=== PATIENT | male | born 1965 | race African-American/Black ===

== ENCOUNTER 2023-11-03 20:35 | Emergency (ER) | payer OTHER ==
[2023-11-03] MEDS ORDERED: THIAMINE 200 MG/2 ML INJ ONE (21:07)
[2023-11-03] MEDS ORDERED: NA CHLORIDE 0.9% 1,000 ML ONE (21:08)
[2023-11-03 21:41] LABS: Absolute Monocytes 0.2 K/uL (0.1-1.3); Absolute Neutrophil 2.4 K/uL (1.8-8.0); Basophils % 1.3 % (0-1.3); Eosinophils % 0.4 % (0-4.4); Hematocrit 36.8 % (39.6-49.0); Hemoglobin 12.7 g/dL (13.6-17.9); Lymphocytes % 27.8 % (15.3-44.8); MCH 34.6 pg (27.0-35.0); MCHC 34.5 g/dL (32.0-36.0); MCV 100.3 fL (80-100); MPV 6.2 fL (7.6-11.3); Monocytes % 5.6 % (3.3-12.3); Neutrophils % 64.9 % (41.7-73.7); Nucleated Red Blood Cells % 0.1 % (0-0); PTT, Activated Partial Thromb 22.9 SECONDS (24.3-36.9); Platelets 244 thou/uL (152-406); RBC Red Blood Cell Count 3.67 M/uL (4.33-5.43); Red Cell Distribution Width 13.4 % (12.1-15.2)
[2023-11-03 21:50] LABS: ALT/SGPT 16 U/L (16-61); AST/SGOT 17 U/L (15-37); Albumin 3.5 g/dL (3.4-5.0); Alkaline Phosphatase 48 U/L (45-117); Anion Gap 11.8 mEq/L (5.0-15.0); BUN Blood Urea Nitrogen 14 mg/dL (7-18); Bicarbonate 27 mEq/L (21-32); Bilirubin Direct < 0.1 mg/dL (0-0.2); Bilirubin Indirect, Calculated ND mg/dL (0.2-0.8); Bilirubin Total 0.3 mg/dL (0.2-1.0); Globulin 3.5 g/dL (2.3-3.5); Glomerular Filtration Rate 56 ml/min (=/>90); Glucose Level 101 mg/dL (74-106); Potassium 2.8 mEq/L (3.5-5.1); Sodium Level 131 mEq/L (136-145)
--- NOTE | 2023-11-03 22:18 | RAD REPORT ---
EXAM DESCRIPTION: CT - Head Brain Wo Cont - 11/03/2023 10:11 pm CLINICAL HISTORY: MENTAL STATUS CHANGE Headache, drowsiness COMPARISON: CT HEAD SPINE CAP W CONTRAST dated 09/30/2013 TECHNIQUE: All CT scans are performed using dose optimization technique as appropriate and may inclu de automated exposure control or mA/KV adjustment according to patient size. FINDINGS: No intracranial hemorrhage, hydrocephalus or extra-axial fluid collection.Remote appearing small bilateral lacunar infarcts.No areas of brain edema or evidence of midline shift. The paranasal sinuses and mastoids are clear. The calvarium is intact. IMPRESSION: No acute intracranial abnormality.
[2023-11-03] MEDS ORDERED: KCL 20 MEQ/100 mL IVPB 100 ML IV ONE (22:34)
[2023-11-03] MEDS ORDERED: POTASSIUM 25 MEQ EFFERV TAB ONE ×2 (22:34→23:03)
--- NOTE | 2023-11-03 22:50 | ER ---
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 Was not jb4 responding to sternal rubs. Initial blood pressure was 88/62 after some IV fluids his pressure is now 137/89. He has an 18g in the RFA. BGL was 130. Pt reports consuming ETOH. Coronavirus screen: At this time, the client does not indicate any symptoms associated with coronavirus-19. Ebola Screen: No symptoms or risks identified at this time. Initial Sepsis Screen: Does the patient meet any 2 criteria? No. Patient's initial sepsis screen is negative. Does the patient have a suspected source of infection? No. Patient's initial sepsis screen is negative. Risk Assessment: Do you want to hurt yourself or someone else? Patient reports no desire to harm self or others. Onset of symptoms was November 03, 2023. Transition of care: patient was not received from another setting of care. 20:49 Method Of Arrival: EMS: [facility] jb4 20:49 Acuity: INDY 3 jb4 Triage Assessment: 20:53 General: Appears in no apparent distress. comfortable, Behavior is calm, cooperative, jb4 appropriate for age. Pain: Denies pain. EENT: No deficits noted. Neuro: Level of Consciousness is awake, alert, obeys commands, Oriented to person, place, time, situation. Cardiovascular: Patient's skin is warm and dry. Respiratory: Airway is patent Respiratory effort is even, unlabored, Respiratory pattern is regular, symmetrical. GI: No signs and/or symptoms were reported involving the gastrointestinal system. : No signs and/or symptoms were reported regarding the genitourinary system. Derm: Skin is intact, Skin is normal. Musculoskeletal: Circulation, motion, and sensation intact. Range of motion: intact in all extremities. Historical: - Allergies: 20:53 Iodine; jb4 20:53 PENICILLINS; jb4 - PMHx: 20:53 HTN; Schizophrenia; HIV positive; Diabetes mellitus; jb4 - Immunization history:: Adult Immunizations up to date. - Infectious Disease History:: Denies. - Social history:: Smoking status: Patient denies any tobacco usage or history of. Patient uses alcohol. - Family history:: not pertinent. Screenin:57 [facility] [place] ED Fall Risk Assessment (Adult) History of falling in the last 3 months, jb4 including since admission No falls in past 3 months (0 pts) Confusion or Disorientation No (0 pts) Intoxicated or Sedated No (0 pts) Impaired Gait No (0 pts) Mobility Assist Device Used No (0 pt) Altered Elimination No (0 pt) Score/Fall Risk Level 0 - 2 = Low Risk Oriented to surroundings, Maintained a safe environment. Abuse screen: Denies threats or abuse. Nutritional screening: No deficits noted. Tuberculosis screening: No symptoms or risk factors identified. Assessment: 20:55 Reassessment: see triage note. jb4 21:46 Reassessment: Patient appears in no apparent distress at this time. Patient and/or jb4 family updated on plan of care and expected duration. Pain level reassessed. Patient is alert, oriented x 3, equal unlabored respirations, skin warm/dry/pink. 23:18 Reassessment: Patient appears in no apparent distress at this time. Patient and/or jb4 family updated on plan of care and expected duration. Pain level reassessed. Patient is alert, oriented x 3, equal unlabored respirations, skin warm/dry/pink. D/c pending completion of IV fluids. 11/03 00:18 Reassessment: Pt resting in bed with eyes closed, respirations are even and unlabored jb4 with no s/s of pain or distress noted. Vital Signs: 11/02 20:49 BP 154 / 106; Pulse 70; Resp 16; Temp 98.2(O); Pulse Ox 97% on R/A; Weight 67.13 kg; jb4 Height 5 ft. 11 in. (R); Pain 0/10; 21:46 BP 150 / 97; Pulse 57; Resp 16; Pulse Ox 99% ; jb4 23:00 BP 169 / 113; Pulse 72; Resp 16; Pulse Ox 100% on R/A; jb4 11/03 00:18 BP 118 / 86; Pulse 60; Resp 16; Pulse Ox 99% on R/A; jb4 11/02 20:49 Body Mass Index 20.64 (67.13 kg, 180.34 cm) jb4 11/02 20:49 Pain Scale: Adult jb4 [place] Coma Score: 11/02 21:21 Eye Response: spontaneous(4). Motor Response: obeys commands(6). Verbal Response: giuseppe oriented(5). Total: 15. NIH Stroke Scale Scores: 21:21 NIHSS Score: 0 giuseppe ED Course: 20:49 Patient arrived in ED. jb4 20:53 Triage completed. jb4 20:53 Cheo Mirza MD is Attending Physician. giuseppe 20:53 Arm band placed on right wrist. jb4 20:55 Patient has correct armband on for positive identification. Bed in low position. Call jb4 light in reach. Side rails up X 1. Provided Education on: plan of care. 21:23 Acetaminophen Sent. jb4 21:23 Basic Metabolic Panel Sent. jb4 21:23 CBC with Diff Sent. jb4 21:23 ETOH Level Sent. jb4 21:23 Hepatic Function Sent. jb4 21:23 PT-INR Sent. jb4 21:23 Ptt, Activated Sent. jb4 21:24 Salicylate Sent. jb4 21:46 Duane Calle, RN is Primary Nurse. jb4 22:12 CT Head Brain wo Cont In Process Unspecified. EDMS 23:00 No provider procedures requiring assistance completed. jb4 11/03 00:58 IV discontinued, intact, bleeding controlled, No redness/swelling at site. Pressure jb4 dressing applied. Administered Medications: 11/02 21:23 Drug: Thiamine IV 100 mg IV at bolus once Route: IV; Rate: bolus; Site: right forearm; jb4 21:24 Drug: NS 0.9% IV 1000 ml IV at 1 bolus Per protocol; 1000 mL bolus Route: IV; Rate: 1 jb4 bolus; Site: right forearm; 22:46 Drug: Potassium Chloride IV 20 mEq IV at per protocol once; administer over 1-2 hours jb4 Route: IV; Rate: per protocol; Site: right forearm; 22:46 Drug: Potassium PO Effervescent Tablet 50 mEq PO once; dissolve in 4 ounces of water or jb4 juice repeat in 30 min Route: PO; 11/03 00:22 Follow up: Response: No adverse reaction jb4 11/02 23:16 Drug: Potassium PO Effervescent Tablet 50 mEq PO once; dissolve in 4 ounces of water or jb4 juice Route: PO; 11/03 00:22 Follow up: Response: No adverse reaction jb4 Medication: 11/02 23:00 VIS not applicable for this client. jb4 Outcome: 22:49 Discharge ordered by MD. chin 11/03 00:58 Discharged to home ambulatory, jb4 Condition: stable Discharge instructions given to patient, Instructed on discharge instructions, follow up and referral plans. medication usage, Demonstrated understanding of instructions, follow-up care, medications, Prescriptions given X 1, 01:00 Patient left the ED. jb4 NIH Stroke Scale - NIH Stroke Score Date: 11/03/2023 Time: 21:21 Total Score = 0 10. Dysarthria (speech clarity - read or repeat words) - 0(Normal) 11. Extinction and Inattention (visual/tactile/auditory/spatial/personal) - 0(No abnormality) 1a. Level of Consciousness (LOC) - 0(Alert) 1b. Level of Consciousness (LOC) (Month \T\ Age) - 0(Both) 1c. LOC Commands (Open \T\ Closes Eyes/Dinkey Operator Slag) - 0(Both) 2. Best Gaze (Lateral Gaze Paresis) - 0(Normal) 3. Visual Field Loss - 0(No visual loss) 4. Facial Palsy - 0(Normal) 5a. Left Arm: Motor (10-second hold) - 0(No drift) 5b. Right Arm: Motor (10-second hold) - 0(No drift) 6a. Left Leg: Motor (5-second hold - always test supine) - 0(No drift) 6b. Right Leg: Motor (5-second hold - always test supine) - 0(No drift) 7. Limb Ataxia (finger/nose \T\ heel/parikh - test with eyes open) - 0(Absent) 8. Sensory Loss (pinprick arms/legs/face) - 0(Normal) 9. Best Language: Aphasia (description/naming/reading) - 0(No aphasia) Initials: giuseppe Signatures: Dispatcher [employer] Cheo Champagne MD MD cha Bryson, James, RN RN jb4 Corrections: (The following items were deleted from the chart) 11/02 20:54 20:53 Allergies: No Known Allergies; jb4 jb4 20:54 20:53 Allergies: PCN; jb4 jb4
--- NOTE | 2023-11-03 22:50 | EDPHYS ---
Physician Documentation [facility] Name: Charlie Bear Age: 57 yrs Sex: Male : 1965 Arrival Date: 11/03/2023 Time: 20:35 Bed 13 Private MD: ED Physician Cheo Mirza HPI: 11/02 21:21 This 57 yrs old Black Male presents to ER via EMS with complaints of in truck passed giuseppe out, etoh. 21:21 The patient presents to the emergency department after a known overdose, a result of [facility] recreational substance abuse. Context: Method: the patient has a confirmed or suspected ingestion, of alcohol. Associated signs and symptoms: Pertinent positives: sleepy. Severity of symptoms: At their worst the symptoms were mild moderate in the emergency department the symptoms have improved mildly. The patient presents with trouble concentrating. Onset: The symptoms/episode began/occurred just prior to arrival, today. Possible causes: CVA or TIA, drug use, alcohol, head injury, low blood sugar, seizure, unknown. Associated signs and symptoms: Pertinent positives: weakness, drunk. Patient's baseline: Neuro: alert and fully oriented. Historical: - Allergies: 20:53 Iodine; jb4 20:53 PENICILLINS; jb4 - PMHx: 20:53 HTN; Schizophrenia; HIV positive; Diabetes mellitus; jb4 - Immunization history:: Adult Immunizations up to date. - Infectious Disease History:: Denies. - Social history:: Smoking status: Patient denies any tobacco usage or history of. Patient uses alcohol. - Family history:: not pertinent. ROS: 21:21 Constitutional: Negative for fever, chills, and weight loss, Eyes: Negative for injury, giuseppe pain, redness, and discharge, ENT: Negative for injury, pain, and discharge, Neck: Negative for injury, pain, and swelling, Cardiovascular: Negative for chest pain, palpitations, and edema, Respiratory: Negative for shortness of breath, cough, wheezing, and pleuritic chest pain, Abdomen/GI: Negative for abdominal pain, nausea, vomiting, diarrhea, and constipation, Back: Negative for injury and pain, : Negative for injury, bleeding, discharge, and swelling, MS/Extremity: Negative for injury and deformity, Skin: Negative for injury, rash, and discoloration, Psych: Negative for depression, anxiety, suicide ideation, homicidal ideation, and hallucinations, Allergy/Immunology: Negative for hives, rash, and allergies, Endocrine: Negative for neck swelling, polydipsia, polyuria, polyphagia, and marked weight changes, Hematologic/Lymphatic: Negative for swollen nodes, abnormal bleeding, and unusual bruising, 21:21 Neuro: Positive for altered mental status, weakness, Exam: 21:21 Constitutional: This is a well developed, well nourished patient who is awake, alert, giuseppe and in no acute distress. Head/Face: Normocephalic, atraumatic. Eyes: Pupils equal round and reactive to light, extra-ocular motions intact. Lids and lashes normal. Conjunctiva and sclera are non-icteric and not injected. Cornea within normal limits. Periorbital areas with no swelling, redness, or edema. ENT: Nares patent. No nasal discharge, no septal abnormalities noted. Tympanic membranes are normal and external auditory canals are clear. Oropharynx with no redness, swelling, or masses, exudates, or evidence of obstruction, uvula midline. Mucous membranes moist. Neck: Trachea midline, no thyromegaly or masses palpated, and no cervical lymphadenopathy. Supple, full range of motion without nuchal rigidity, or vertebral point tenderness. No Meningismus. Chest/axilla: Normal chest wall appearance and motion. Nontender with no deformity. No lesions are appreciated. Cardiovascular: Regular rate and rhythm with a normal S1 and S2. No gallops, murmurs, or rubs. Normal PMI, no JVD. No pulse deficits. Respiratory: Lungs have equal breath sounds bilaterally, clear to auscultation and percussion. No rales, rhonchi or wheezes noted. No increased work of breathing, no retractions or nasal flaring. Abdomen/GI: Soft, non-tender, with normal bowel sounds. No distension or tympany. No guarding or rebound. No evidence of tenderness throughout. Back: No spinal tenderness. No costovertebral tenderness. Full range of motion. Male : Normal genitalia with no discharge or lesions. Skin: Warm, dry with normal turgor. Normal color with no rashes, no lesions, and no evidence of cellulitis. MS/ Extremity: Pulses equal, no cyanosis. Neurovascular intact. Full, normal range of motion. Psych: Awake, alert, with orientation to person, place and time. Behavior, mood, and affect are within normal limits. 21:21 Neuro: Orientation: is normal, no acute changes, to person, place, time, situation, Mentation: slow to respond, Memory: unable to test, the patient is clinically intoxicated, Cranial nerves: grossly normal, is grossly normal based on the patient's age, no acute changes, Cerebellar function: is grossly normal, Motor: is normal, Sensation: is normal, no obvious gross deficits, appropriate Gait: not tested. Deep tendon reflexes are 2+ (normal) in the bilateral brachioradialis, bicep, tricep and patellar and Achilles tendons, Babinski testing is normal, seizure activity, is not displayed by the patient, 22:23 ECG was reviewed by the Attending Physician. [facility] Vital Signs: 20:49 BP 154 / 106; Pulse 70; Resp 16; Temp 98.2(O); Pulse Ox 97% on R/A; Weight 67.13 kg; [facility] Height 5 ft. 11 in. (R); Pain 0/10; 21:46 BP 150 / 97; Pulse 57; Resp 16; Pulse Ox 99% ; [facility] 23:00 BP 169 / 113; Pulse 72; Resp 16; Pulse Ox 100% on R/A; [facility] 11/03 00:18 BP 118 / 86; Pulse 60; Resp 16; Pulse Ox 99% on R/A; [facility] 11/02 20:49 Body Mass Index 20.64 (67.13 kg, 180.34 cm) [facility] 11/02 20:49 Pain Scale: Adult [facility] NIH Stroke Scale Scores: 11/02 21:21 NIHSS Score: 0 [facility] [place] Coma Score: 21:21 Eye Response: spontaneous(4). Motor Response: obeys commands(6). Verbal Response: giuseppe oriented(5). Total: 15. MDM: 20:53 Patient medically screened. giuseppe 21:26 Differential diagnosis: Ingestion/exposure to etoh hypoglycemia. Differential giuseppe Diagnosis: CVA, electrolyte abnormality, alcohol intoxication, hypoglycemia, intracranial bleed, overdose, TIA, UTI, volume depletion. Data reviewed: vital signs, nurses notes, EMS record, lab test result(s), EKG, radiologic studies, CT scan. Consideration of Admission/Observation Escalation of care including admission/observation considered. I considered the following discharge prescriptions or medication management in the emergency department Medications were administered in the Emergency Department. See MAR. Test considered but Not performed: MRI: no mri brain. Care significantly affected by the following chronic conditions: Diabetes, Hypertension, schizo, hiv, etoh use. 11/02 20:55 Order name: Acetaminophen; Complete Time: 22:16 [facility] 11/02 20:55 Order name: Basic Metabolic Panel; Complete Time: 22:16 [facility] 11/02 20:55 Order name: CBC with Diff; Complete Time: 22:16 [facility] 11/02 20:55 Order name: ETOH Level; Complete Time: 22:16 [facility] 11/02 20:55 Order name: Hepatic Function; Complete Time: 22:16 [facility] 11/02 20:55 Order name: PT-INR; Complete Time: 22:16 [facility] 11/02 20:55 Order name: Ptt, Activated; Complete Time: 22:16 [facility] 11/02 20:55 Order name: Salicylate; Complete Time: 22:16 [facility] 11/02 20:55 Order name: Urinalysis w/ reflexes [facility] 11/02 20:55 Order name: Urine Drug Screen [facility] 11/02 20:55 Order name: CT Head Brain wo Cont; Complete Time: 22:19 [facility] 11/02 20:55 Order name: EKG - Nurse/Tech; Complete Time: 21:42 [facility] 11/02 20:55 Order name: IV Saline Lock; Complete Time: 21:24 [facility] 11/02 20:55 Order name: Labs collected and sent; Complete Time: 21:24 giuseppe EC:23 Rate is 61 beats/min. Rhythm is regular. QRS [place] is Normal. [place] interval is normal. QRS giuseppe interval is normal. QT interval is normal. No Q waves. T waves are Normal. No ST changes noted. Clinical impression: NSR w/ Non-specific ST/T Changes and No evidence of ischemia. Interpreted by me. Reviewed by me. Administered Medications: 21:23 Drug: Thiamine IV 100 mg IV at bolus once Route: IV; Rate: bolus; Site: right forearm; jb4 21:24 Drug: NS 0.9% IV 1000 ml IV at 1 bolus Per protocol; 1000 mL bolus Route: IV; Rate: 1 jb4 bolus; Site: right forearm; 22:46 Drug: Potassium Chloride IV 20 mEq IV at per protocol once; administer over 1-2 hours jb4 Route: IV; Rate: per protocol; Site: right forearm; 22:46 Drug: Potassium PO Effervescent Tablet 50 mEq PO once; dissolve in 4 ounces of water or jb4 juice repeat in 30 min Route: PO; 11/03 00:22 Follow up: Response: No adverse reaction jb4 11/02 23:16 Drug: Potassium PO Effervescent Tablet 50 mEq PO once; dissolve in 4 ounces of water or jb4 juice Route: PO; 11/03 00:22 Follow up: Response: No adverse reaction jb4 Disposition Summary: 11/03/23 22:49 Discharge Ordered Notes: Location: Home giuseppe Problem: new giuseppe Symptoms: have improved giuseppe Condition: Stable giuseppe Diagnosis - Alcohol abuse with intoxication giuseppe - Altered mental status, unspecified giuseppe - Asymptomatic human immunodeficiency virus [HIV] infection status giuseppe - Hypokalemia giuseppe - Hypo-osmolality and hyponatremia giuseppe Followup: giuseppe - With: Private Physician - When: 2 - 3 days - Reason: Recheck today's complaints, Continuance of care, Re-evaluation by your physician Discharge Instructions: - Discharge Summary Sheet giuseppe - Alcohol Intoxication giuseppe - Potassium Content of Foods giuseppe - Hyponatremia giuseppe - Schizophrenia giuseppe - Alcohol Intoxication, Isue-ic-Zrum giuseppe - Hyponatremia, Msla-pl-Lahe giuseppe - Hypokalemia giuseppe - HIV Infection and AIDS giuseppe - How to Care for Yourself When You Have HIV giuseppe - Supporting Someone With Schizophrenia giuseppe Forms: - Medication Reconciliation Form giuseppe - Antibiotic Education giuseppe - Prescription Opioid Use giuseppe - Patient Portal Instructions giuseppe - Leadership Thank You Letter [facility] Prescriptions: - Potassium Chloride 20 meq Oral Packet - take 1 packet ORAL route every 12 hours 1 packet in 6 (six) ounces of water or giuseppe juice; Take after meal; 14 packet; Refills: 0, Product Selection Permitted NIH Stroke Scale - NIH Stroke Score Date: 11/03/2023 Time: 21:21 Total Score = 0 10. Dysarthria (speech clarity - read or repeat words) - 0(Normal) 11. Extinction and Inattention (visual/tactile/auditory/spatial/personal) - 0(No abnormality) 1a. Level of Consciousness (LOC) - 0(Alert) 1b. Level of Consciousness (LOC) (Month \T\ Age) - 0(Both) 1c. LOC Commands (Open \T\ Closes Eyes/Museum Preparator) - 0(Both) 2. Best Gaze (Lateral Gaze Paresis) - 0(Normal) 3. Visual Field Loss - 0(No visual loss) 4. Facial Palsy - 0(Normal) 5a. Left Arm: Motor (10-second hold) - 0(No drift) 5b. Right Arm: Motor (10-second hold) - 0(No drift) 6a. Left Leg: Motor (5-second hold - always test supine) - 0(No drift) 6b. Right Leg: Motor (5-second hold - always test supine) - 0(No drift) 7. Limb Ataxia (finger/nose \T\ heel/parikh - test with eyes open) - 0(Absent) 8. Sensory Loss (pinprick arms/legs/face) - 0(Normal) 9. Best Language: Aphasia (description/naming/reading) - 0(No aphasia) Initials: giuseppe Signatures: Dispatcher [employer] EDCheo Thornton MD MD cha Bryson, James RN RN jb4 Corrections: (The following items were deleted from the chart) 11/02 20:54 20:53 Allergies: No Known Allergies; jb4 jb4 20:54 20:53 Allergies: PCN; bettie jb4 20:55 20:55 ACETAMINOPHEN+C.LAB.BRZ ordered. EDMS EDMS 20:55 20:55 BASIC METABOLIC PANEL+C.LAB.BRZ ordered. EDMS EDMS 20:55 20:55 CBC+H.LAB.BRZ ordered. EDMS EDMS 20:55 20:55 ETHANOL+C.LAB.BRZ ordered. EDMS EDMS 20:55 20:55 HEPATIC FUNCTION+C.LAB.BRZ ordered. EDMS EDMS 20:55 20:55 PROTIME (+INR)+COAG.LAB.BRZ ordered. EDMS EDMS 20:55 20:55 PTT, ACTIVATED+COAG.LAB.BRZ ordered. EDMS EDMS 20:55 20:55 SALICYLATE+C.LAB.BRZ ordered. EDMS EDMS 20:55 20:55 Urinalysis+U.LAB.BRZ ordered. EDMS EDMS 20:55 20:55 URINE DRUG SCREEN+UC.LAB.BRZ ordered. EDMS EDMS 20:55 20:55 Head Brain Wo Cont+CT.RAD.BRZ ordered. EDMS EDMS 20:56 20:55 Suicide Screening (Tullos) ordered. giuseppe alexandre
[2023-11-03] MEDS ORDERED: NA CHLORIDE 0.9% 250 ML ONE (23:02)
[2023-11-03 23:30] LABS: Specific Gravity 1.007 (1.005-1.030); Sqamous Epithelial None Seen /HPF (None Seen); Urine Bacteria <20 /HPF (<20); Urine Bilirubin NEGATIVE (Negative); Urine Blood Negative (Negative); Urine Clarity Turbid (Clear); Urine Color Colorless (Yellow); Urine Culture Reflex Order NOT NEEDED; Urine Glucose NEGATIVE (Negative); Urine Ketones NEGATIVE (Negative); Urine Microscopic Reflex YN ORDER UMIC; Urine Mucus Slight /HPF (None Seen); Urine Nitrite 2+ (Negative); Urine Protein NEGATIVE (Negative); Urine RBC <5 /HPF (None Seen); Urine Urobilinogen Normal (Normal); Urine WBC <5 /HPF (<5); Urine pH 6.5 (5.0-7.0)
[2023-11-03 23:33] LABS: Barbiturates NEGATIVE (NEGATIVE); Benzodiazepines NEGATIVE (NEGATIVE); Cocaine POSITIVE (NEGATIVE); METHAMPHETAM NEGATIVE (NEGATIVE); Methadone NEGATIVE (NEGATIVE); Opiates NEGATIVE (NEGATIVE); Phencyclidine NEGATIVE (NEGATIVE); THC Cannibis NEGATIVE (NEGATIVE)
[2023-11-04 01:15] VITALS: BP 118/86; TEMP 98.2; O2SAT 99
--- NOTE | 2023-11-04 14:36 | EKG ---
Test Date: 2023-11-03 Test Time: 21:44:26 Toaster Element Repairer: BRENNAN MEASUREMENT RESULTS: Intervals: Rate: 61 CA: 180 QRSD: 156 QT: 494 QTc: 497 [place]: P: 30 CA: 180 QRS: 96 T: -69 INTERPRETIVE STATEMENTS: Normal sinus rhythm Rightward axis Nonspecific intraventricular block Abnormal ECG Compared to ECG 10/31/1995 06:30:00 Right-axis deviation now present Electronically Signed On 11-04-23 14:35:17 CDT by Hermelindo Alvarez
== END 2023-11-04 01:00 | disposition home or self-care (01) ==
LOC: ER 20:35
DX: F10.129 Alcohol abuse with intoxication, unspecified (principal); E87.6 Hypokalemia; E87.1 Hypo-osmolality and hyponatremia; Z21 Asymptomatic human immunodeficiency virus [HIV] infection status; I10 Essential (primary) hypertension; F20.9 Schizophrenia, unspecified; Z88.0 Allergy status to penicillin; Z91.048 Other nonmedicinal substance allergy status
CPT/HCPCS: 93005; 85025; 81001; 80048; 36415; 85610; 80076; 85730; 80307; 70450; 96375; 96374; 99284; 80143; 80179; 82077; J3411; J3480; J7050; J7030

== ENCOUNTER 2025-03-24 16:55 | Emergency (ER) | payer OTHER ==
[2025-03-24] MEDS ORDERED: METHYLPREDNISOLONE 125 MG INJ ONE (17:03)
[2025-03-24] MEDS ORDERED: DIPHENHYDRAMINE 50 MG/ML VIAL ONE (17:03)
[2025-03-24] MEDS ORDERED: WATER FOR INJ,STERILE 10 ML ONE (17:04)
--- OUTSIDE RECORDS SUMMARY | 2025-03-24 17:13 | XMS REPORT | Continuity of Care Document ---
Author Name Unknown Address [address] [facility] [address] [place] [address] [facility] Address [address] [facility] 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 Attending Clinician RIMMA Cardenas Attending Clinician Mouna Modi MD, [facility] Attending Clinician [phone] Luiz Sherman MD Attending Clinician [phone], [facility] Attending Clinician Unavailable Felice Payne MD Attending Clinician [phone] Marcus Jauregui MD Attending Clinician Unavailsaul john Doctor Unassigned, [place] Attending Clinician U Hasmukh Schrader MD Attending Clinician [phone] Hasmukh Barnhart MD Attending Clinician [phone] Luiz Sherman MD Attending Clinician [phone] Pob, [facility] Main Attending Clinician ZEESHAN Ge Attending Clinician Hiram Argueta MD Attending Clinician [phone] Zeeshan Bee MD Attending Clinician [phone] Doctor Unassigned, [place] Attending Clinician U RODGER Bran Attending Clinician UnavailLORETTA Pritchard Attending Clinician Unavailab Maral Lucia DO Attending Clinician [phone] AMPARO LITTLE Attending Clinician Unavailable Amparo Bonilla Attending Clinician [phone] EFRA WELLS Attending Clinician Unavailable Efra Wells MD Attending Clinician [phone] Alex Cochran MD Attending Clinician [phone] John Franklin CRNA Attending Clinician [phone] Felix King PT, Joana Attending Clinician Un available CANDICE HURLEY Attending Clinician Unavailable EAGLE BROOKS Attending Clinician Unavailable REGINA GILMAN Attending Clinician Unavailable Regina Martinez Attending Clinician [phone] Theresa Mccord MD Attending Clinician [phone] [facility] Attending Clinician Unavailable Moises Godwin Attending Clinician [phone] MOISES FIERRO Attending Clinician Unavailable Melisa De La Torre RN Attending Clinician + [phone] Héctor Feliz DO Attending Clinician [phone] Patricia Raman MD Attending Clinician [phone] Sonny Daniels MD Attending Clinician [phone] EDY HERRERA Attending Clinician Unavaila Edy Perry MD Attending Clinician [phone] Jeanne Cuellar MD Attending Clinician [phone] Bhavana Marcus RN Attending Clinician Unav Beni Dillard RN Attending Clinician Unavaila ROSA Araya Attending Clinician Unavailable HASMUKH BARNHART Admitting Clinician UnavailHASMUKH Lewis Admitting Clinician UnavailLROETTA Pritchard Admitting Clinician Unavailab Hasmukh Quintana MD Admitting Clinician [phone] AMPARO LITTLE Admitting Clinician Unavailable Ptaricia Raman MD Admitting Clinician [phone] Payers Payer Name Policy Type Policy Number Effective Date Expirati on Date Source [facility] [id number] 2022 00:00:00 [employer] [id number] 3 00:00:00 2013 00:00:00 [facility] [id number] 2013 00:00:00 2013 00:00:00 Problems Condition Name Condition Details Condition Category Status Onset Date Resolution Date Last Treatment Date Treating Clinician Comments Source Mixed dyslipidem ia Mixed dyslipidem ia Disease Active 2- 00:00: 00 [facility] Asymptomat ic hypertensi ve urgency Asymptomat ic hypertensi ve urgency Disease Active 2023-07- 00:00: 00 [facility] Primary osteoarthr itis of left hip Primary osteoarthr itis of left hip Disease Active -07 00:00: 00 [facility] Pre-op testing Pre-op testing Disease Active 6-07 00:00: 00 [facility] Dermoid cyst of skin of nose Dermoid cyst of skin of nose Disease Active -14 00:00: 00 [facility] Nutritiona l deficiency Nutritiona l deficiency Disease Active 5-14 00:00: 00 [facility] Weight loss Weight loss Disease Active 5-14 00:00: 00 [facility] Weight loss Weight loss Disease Active 5-14 00:00: 00 [facility] Cannabis dependence Cannabis dependence Disease Active 2022-07 0-24 00:00: 00 [facility] Thiamin deficiency Thiamin deficiency Disease Active 2022-07 0-24 00:00: 00 [facility] Multilevel degenerati ve disc disease Multilevel degenerati ve disc disease Disease Active 2022-07 0-24 00:00: 00 [facility] Uncomplica fay alcohol dependence Uncomplica fay alcohol dependence Disease Active 7-21 00:00: 00 [facility] Mild hyperchole sterolemia Mild hyperchole sterolemia Disease Active 4-14 00:00: 00 [facility] Vitamin D deficiency Vitamin D deficiency Disease Active 14 00:00: 00 [facility] Avascular necrosis of left femoral head Avascular necrosis of left femoral head Disease Active 2-10 00:00: 00 Overview: Formattin g of this note might be different from the original. 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 Disease Active 07-08 00:00: 00 [facility] Senile osteoporos is Senile osteoporos is Disease Active 07-08 00:00: 00 [facility] Chronic left hip pain Chronic left hip pain Disease Active 07-08 00:00: 00 [facility] Insomnia, unspecifie d type Insomnia, unspecifie d type Disease Active 1-05 00:00: 00 [facility] Primary insomnia Primary insomnia Disease Active 07-08 00:00: 00 [facility] Need for influenza vaccinatio n Need for influenza vaccinatio n Disease Active 07-08 00:00: 00 [facility] Pulmonary embolism associated with COVID-19 Pulmonary embolism associated with COVID-19 Disease Active 03-11 00:00: 00 [facility] Idiopathic neuropathy Idiopathic neuropathy Disease Active 03-11 00:00: 00 [facility] Nicotine dependence with current use Nicotine dependence with current use Disease Active - 00:00: 00 [facility] Current every day smoker Current every day smoker Disease Active 4- 00:00: 00 [facility] Tobacco abuse Tobacco abuse Disease Active 4- 00:00: 00 [facility] Foreign body in foot, right, initial encounter Foreign body in foot, right, initial encounter Disease Active 2-18 00:00: 00 [facility] Depressive disorder Depressive disorder Disease Active 912 00:00: 00 Overview: Formattin g of this note might be different from the original. ICD10 Diagnosis Term Consulting Practice Director Utility [facility] Essential hypertensi on Essential hypertensi on Disease Active 07-23 00:00: 00 [facility] Symptomati c HIV infection Symptomati c HIV infection Disease Active 07-23 00:00: 00 [facility] Benign essential HTN Benign essential HTN Disease Active 07-23 00:00: 00 [facility] Human immunodefi ciency virus (HIV) disease Human immunodefi ciency virus (HIV) disease Disease Active 07-23 00:00: 00 [facility] CKD (chronic kidney disease) CKD (chronic kidney disease) Disease Active 07-23 00:00: 00 [facility] Allergies, Adverse Reactions, Alerts Allergy Name Allergy Type Status Severity Reaction(s) Onset Date Inactive Date Treating Clinician Comments Source HYDROCHL OROTHIAZ JULIET DRUG INGREDI Active Swelling 10-15 00:00: 00 [facility] Hydrochl orothiaz juliet Propensi ty to adverse reaction s Active Swelling 10-15 00:00: 00 [facility] IODINE DRUG INGREDI Active ITCHING 07-23 00:00: 00 [facility] Iodine Propensi ty to adverse reaction s Active Itching 07-23 00:00: 00 [facility] Family History Family Member Diagnosis Comments Start Date Stop Date Sourc e Natural [facility] Social History Social Habit Start Date Stop Date Quantity Comments Source Gender identity [facility] Sexual orientation [facility] History of tobacco use Cigarette Smoker [facility] History SDOH Alcohol Frequency [facility] History SDOH Alcohol Std Drinks [facility] History SDOH Alcohol Binge [facility] Alcoholic beverage intake 2025-03-15 00:00:00 2025-03-15 00:00:00 Current drinker of alcohol (finding) [facility] History of Social function 2024-11-09 00:00:00 2024-11-09 00:00:00 [facility] Cigarette pack-years 2023-12-08 00:00:00 2023-12-08 00:00:00 [facility] Tobacco use and exposure 2023-12-08 00:00:00 2023-12-08 00:00:00 Smokeless tobacco non-user [facility] Alcohol intake 2023-08-11 00:00:00 2023-08-11 00:00:00 Current drinker of alcohol (finding) [facility] Exposure to SARS-CoV-2 (event) 2022-10-04 00:00:00 2022-10-14 10:43:00 Not sure [facility] Tobacco Comment 2022-08-26 00:00:00 2022-08-26 00:00:00 Only 1 cigarette per day [facility] Alcohol Comment 2014-03-25 00:00:00 2014-03-25 00:00:00 occasionally [facility] Cigarettes smoked current (pack per day) - Reported 2014-03-25 00:00:00 2014-03-25 00:00:00 [facility] Sex assigned at 1965 00:00:00 1965 00:00:00 [facility] Smoking Status Start Date Stop Date Source Smokes tobacco daily 2023-12-08 00:00:00 [facility] Medications Ordered Medication Name Filled Medication Name Start Date Stop Date Current Medication? Ordering Clinician Indication Dosage Frequency Signature (SIG) Comments Components Source thiamine 100 mg tablet 02-27 00:00: 00 Yes [id number] 100mg Take 1 tablet by mouth in the morning. [facility] metoprolol succinate XL 25 mg 24 hr tablet 02-27 00:00: 00 Yes [id number] 25mg Take 1 tablet by mouth in the morning and 1 tablet in the evening. TAKE ONE TABLET BY MOUTH EVERY MORNING AND IN THE EVENING. [facility] hydrALAZINE 50 mg tablet 02-27 00:00: 00 Yes [id number] 50mg Take 1 tablet by mouth in the morning and 1 tablet at noon and 1 tablet before bedtime. TAKE ONE TABLET BY MOUTH EVERY EIGHT HOURS. [facility] gabapentin 600 mg tablet 02-27 00:00: 00 Yes [id number] TAKE ONE TABLET BY MOUTH EVERY MORNING AND @NOON AND IN THE EVENING [facility] atorvastati n 20 mg tablet 02-27 00:00: 00 Yes [id number] 20mg Take 1 tablet by mouth at bedtime. [facility] amlodipine- valsartan 10-320 mg per tablet 02-27 00:00: 00 Yes [id number] 1{tbl} Take 1 tablet by mouth every morning. [facility] abacavir-do lutegravir- lamivudine (TRIUMEQ) 600-50-300 mg per tablet 02-27 00:00: 00 Yes [id number] 1{tbl} Take 1 tablet by mouth every morning. [facility] Food Supplement, Lactose-Grey e (ENSURE HIGH PROTEIN) liquid 02-27 00:00: 00 03-15 00:00 :00 No [id number] 1{can} Take 1 Can by mouth 3 times daily with meals and at bedtime. [facility] ergocalcife rol, vitamin d2, (VITAMIN D2) 1,250 mcg (50,000 unit) capsule 11-09 00:00: 00 Yes [id number] Take 1 capsule by mouth weekly. [facility] Vit B Cmplx 3-FA-C-Biot -ZincOx 1-60-300-12 .5 mg-mg-mcg-m g Tab 11-09 00:00: 00 Yes [id number] 1{tbl} Take 1 tablet by mouth in the morning. [facility] abacavir-do lutegravir- lamivudine (TRIUMEQ) 600-50-300 mg per tablet 11-09 00:00: 00 02-27 00:00 :00 No [id number] 1{tbl} Take 1 tablet by mouth every morning. [facility] traZODone 50 mg tablet 11-09 00:00: 00 02-27 00:00 :00 No [id number] TAKE ONE TABLET BY MOUTH AT BEDTIME NEEDED FOR INSOMNIA [facility] thiamine 100 mg tablet 11-09 00:00: 00 02-27 00:00 :00 No [id number] 100mg Take 1 tablet by mouth in the morning. [facility] metoprolol succinate XL 25 mg 24 hr tablet 11-09 00:00: 00 02-27 00:00 :00 No [id number] 25mg Take 1 tablet by mouth in the morning and 1 tablet in the evening. TAKE ONE TABLET BY MOUTH EVERY MORNING AND IN THE EVENING [facility] hydrALAZINE 50 mg tablet 11-09 00:00: 00 02-27 00:00 :00 No [id number] 50mg Take 1 tablet by mouth every 8 (eight) hours. TAKE ONE TABLET BY MOUTH EVERY EIGHT HOURS [facility] gabapentin 600 mg tablet 11-09 00:00: 00 02-27 00:00 :00 No [id number] TAKE ONE TABLET BY MOUTH EVERY MORNING AND @NOON AND IN THE EVENING [facility] amlodipine- valsartan 10-320 mg per tablet 11-09 00:00: 00 02-27 00:00 :00 No [id number] 1{tbl} Take 1 tablet by mouth every morning. [facility] atorvastati n 20 mg tablet 11-09 00:00: 00 02-27 00:00 :00 No [id number] 20mg Take 1 tablet by mouth at bedtime. [facility] gabapentin 600 mg tablet 10-23 00:00: 00 11-09 00:00 :00 No [id number] TAKE ONE TABLET BY MOUTH EVERY MORNING AND @NOON AND IN THE EVENING [facility] VITAMIN D2 1,250 mcg (50,000 unit) capsule 10-23 00:00: 00 11-09 00:00 :00 No [id number] TAKE ONE CAPSULE BY MOUTH ONCE A WEEK [facility] AMLODIPINE- VALSARTAN 10-320 mg per tablet 10-23 00:00: 00 11-09 00:00 :00 No [id number] 1{tbl} TAKE ONE TABLET BY MOUTH EVERY MORNING [facility] HYDRALAZINE 50 mg tablet 10-23 00:00: 00 11-09 00:00 :00 No [id number] TAKE ONE TABLET BY MOUTH EVERY EIGHT HOURS [facility] TRAZODONE 50 mg tablet 10-23 00:00: 00 11-09 00:00 :00 No [id number] TAKE ONE TABLET BY MOUTH AT BEDTIME NEEDED FOR INSOMNIA [facility] ANTACID, CALCIUM CARBONATE, 200 mg calcium (500 mg) chewable tablet 10-22 00:00: 00 Yes CHEW AND SWALLOW 1 TABLET BY MOUTH EVERY MORNING [facility] ATORVASTATI N 20 mg tablet 10-22 00:00: 00 11-09 00:00 :00 No [id number] 20mg TAKE ONE TABLET BY MOUTH AT BEDTIME [facility] TRIUMEQ 600-50-300 mg per tablet 10-01 00:00: 00 11-09 00:00 :00 No [id number] 1{tbl} TAKE ONE TABLET BY MOUTH EVERY MORNING [facility] METOPROLOL SUCCINATE XL 25 mg 24 hr tablet 10-01 00:00: 00 11-09 00:00 :00 No [id number] TAKE ONE TABLET BY MOUTH EVERY MORNING AND IN THE EVENING [facility] cloNIDine (CATAPRES) tablet 0.2 mg 2023-07 21:45: 00 05-11 21:17 :00 No [id number] .2mg 0.2 mg, Oral, ONCE, 1 dose, On Tue05/11/24 at 1545, Routine [facility] metoprolol succinate XL 25 mg 24 hr tablet 2023-07 00:00: 00 Yes [id number] 25mg Take 1 tablet by mouth in the morning and 1 tablet in the evening. [facility] abacavir-do lutegravir- lamivudine (TRIUMEQ) 600-50-300 mg per tablet 2023-07 00:00: 00 Yes [id number] 1{tbl} Take 1 tablet by mouth every morning. [facility] calcium carbonate (CALCIUM 500) 500 mg calcium (1,250 mg) chewable tablet 2023-07 00:00: 00 Yes [id number] 1{tbl} Take 1 tablet by mouth in the morning. [facility] hydrALAZINE 50 mg tablet 2023-07 00:00: 00 10-23 00:00 :00 No [id number] 50mg Take 1 tablet by mouth every 8 (eight) hours. [facility] amlodipine- valsartan 10-320 mg per tablet 2023-07 00:00: 00 10-23 00:00 :00 No [id number] 1{tbl} Take 1 tablet by mouth in the morning. [facility] ergocalcife rol, vitamin d2, 1,250 mcg (50,000 unit) capsule 2023-07 00:00: 00 10-23 00:00 :00 No [id number] Take 1 capsule by mouth weekly. [facility] gabapentin 600 mg tablet 2023-07 00:00: 00 10-23 00:00 :00 No [id number] TAKE ONE CAPSULE BY MOUTH EVERY MORNING AT NOON AND IN THE EVENING [facility] traZODone 50 mg tablet 2023-07 00:00: 00 10-23 00:00 :00 No [id number] TAKE ONE TABLET BY MOUTH AT BEDTIME NEEDED FOR INSOMNIA [facility] atorvastati n 20 mg tablet 2023-07 00:00: 00 10-22 00:00 :00 No [id number] 20mg Take 1 tablet by mouth at bedtime. [facility] gabapentin 600 mg tablet 03-19 00:00: 00 05-11 00:00 :00 No [id number] TAKE ONE CAPSULE BY MOUTH EVERY MORNING AT NOON AND IN THE EVENING [facility] HYDRALAZINE 25 mg tablet 02-21 00:00: 00 05-11 00:00 :00 No [id number] TAKE ONE TABLET BY MOUTH EVERY EIGHT HOURS [facility] oxyCODONE-a cetaminophe n (PERCOCET) 5-325 mg per tablet 2 tablet 12-26 05:00: 00 12-26 16:59 :00 No 2{tbl} [facility] tranexamic acid (CYKLOKAPRO N) 1,000 mg in NaCl 0.9% (NS) 250 mL piggyback 12-26 05:00: 00 12-26 16:59 :00 No 1000mg [facility] hydrALAZINE 25 mg tablet 12-19 00:00: 00 02-21 00:00 :00 No [id number] 25mg Take 1 tablet by mouth every 8 (eight) hours. [facility] Food Supplement, Lactose-Grey e (ENSURE HIGH PROTEIN) liquid 11-14 00:00: 00 Yes [id number] 1{can} Take 1 Can by mouth 3 (three) times daily with meals and at bedtime. [facility] thiamine 100 mg tablet 11-14 00:00: 00 11-09 00:00 :00 No [id number] 100mg Take 1 tablet by mouth in the morning. [facility] traZODone 50 mg tablet 11-14 00:00: 00 05-11 00:00 :00 No [id number] TAKE ONE TABLET BY MOUTH AT BEDTIME NEEDED FOR INSOMNIA [facility] Amlodipine- Olmesartan 10-20 mg Tab 11-14 00:00: 00 05-11 00:00 :00 No [id number] 1{tbl} Take 1 tablet by mouth in the morning. [facility] gabapentin 600 mg tablet 11-14 00:00: 00 03-19 00:00 :00 No [id number] TAKE ONE CAPSULE BY MOUTH EVERY MORNING AND @NOON AND IN THE EVENING [facility] Diclofenac Sodium (VOLTAREN) 1 % gel 08-10 00:00: 00 Yes [id number] Apply to area(s) 4 (four) times daily. Apply 4 g qid [facility] lidocaine 5 % ointment 08-10 00:00: 00 Yes [id number] Apply 2g to affected areas BID PRN [facility] capsicum oleoresin 0.025 % cream 08-10 00:00: 00 Yes [id number] Apply 5g to affected areas TID [facility] metoprolol succinate XL 25 mg 24 hr tablet 08-10 00:00: 00 05-11 00:00 :00 No [id number] 25mg Take 1 tablet by mouth every morning. [facility] ergocalcife rol, vitamin d2, 1,250 mcg (50,000 unit) capsule 08-10 00:00: 00 05-11 00:00 :00 No [id number] Take 1 capsule by mouth weekly. [facility] calcium carbonate (CALCIUM 500) 500 mg calcium (1,250 mg) chewable tablet 08-10 00:00: 00 05-11 00:00 :00 No [id number] 1{tbl} Take 1 tablet by mouth in the morning. [facility] Amlodipine- Olmesartan 10-20 mg Tab 08-10 00:00: 00 11-14 00:00 :00 No [id number] 1{tbl} Take 1 tablet by mouth in the morning. [facility] gabapentin 600 mg tablet 08-10 00:00: 00 11-14 00:00 :00 No [id number] TAKE ONE CAPSULE BY MOUTH EVERY MORNING AND @NOON AND IN THE EVENING [facility] thiamine 100 mg tablet 08-10 00:00: 00 11-14 00:00 :00 No [id number] 100mg Take 1 tablet by mouth in the morning. [facility] traZODone 50 mg tablet 2-07 00:00: 00 11-14 00:00 :00 No [id number] TAKE ONE TABLET BY MOUTH AT BEDTIME NEEDED FOR INSOMNIA [facility] TRIUMEQ 600-50-300 mg per tablet 2022-07-16 00:00: 00 05-11 00:00 :00 No [id number] 1{tbl} TAKE ONE TABLET BY MOUTH EVERY MORNING [facility] TRAZODONE 50 mg tablet 2022-07 00:00: 00 08-10 00:00 :00 No [id number] TAKE ONE TABLET BY MOUTH AT BEDTIME NEEDED FOR INSOMNIA [facility] Vit B Cmplx 3-FA-C-Biot -ZincOx 1-60-300-12 .5 mg-mg-mcg-m g Tab 2022-07 0-24 00:00: 00 11-09 00:00 :00 No [id number] 1{tbl} Take 1 tablet by mouth in the morning. [facility] thiamine 100 mg tablet 2022-07 024 00:00: 00 08-10 00:00 :00 No [id number] 100mg Take 1 tablet by mouth in the morning. [facility] Amlodipine- Olmesartan 10-20 mg Tab 2022-07 0-24 00:00: 00 08-10 00:00 :00 No [id number] 1{tbl} Take 1 tablet by mouth in the morning. [facility] abacavir-do lutegravir- lamivudine (TRIUMEQ) 600-50-300 mg per tablet 2022-07 0-24 00:00: 00 05-19 00:00 :00 No [id number] 1{tbl} Take 1 tablet by mouth every morning. [facility] traZODone 50 mg tablet 2022-07 0-24 00:00: 00 05-19 00:00 :00 No TAKE ONE TABLET BY MOUTH AT BEDTIME NEEDED FOR INSOMNIA [facility] GABAPENTIN 600 mg tablet 9-20 00:00: 00 08-10 00:00 :00 No [id number] TAKE ONE CAPSULE BY MOUTH EVERY MORNING AND @NOON AND IN THE EVENING [facility] METOPROLOL SUCCINATE XL 25 mg 24 hr tablet 918 00:00: 00 08-10 00:00 :00 No [id number] 25mg TAKE ONE TABLET BY MOUTH EVERY MORNING [facility] thiamine 100 mg tablet -28 00:00: 00 04-26 00:00 :00 No [id number] 100mg Take 1 tablet by mouth in the morning. [facility] [employer] Kit - 00:00: 00 Yes [id number] I10 - Dispense blood pressure cuff (any brand), take BP at home BID [facility] HYDROCHLORO THIAZIDE 25 mg tablet 12-02 00:00: 00 04-26 00:00 :00 No [id number] TAKE ONE TABLET BY MOUTH EVERY MORNING [facility] TRIUMEQ 600-50-300 mg per tablet 12-02 00:00: 00 04-26 00:00 :00 No [id number] TAKE ONE TABLET BY MOUTH EVERY MORNING [facility] AMLODIPINE 10 mg tablet 12-01 00:00: 00 04-26 00:00 :00 No [id number] TAKE ONE TABLET BY MOUTH EVERY MORNING [facility] TRAZODONE 50 mg tablet 12-01 00:00: 00 04-26 00:00 :00 No [id number] TAKE ONE TABLET BY MOUTH AT BEDTIME NEEDED FOR INSOMNIA [facility] GABAPENTIN 600 mg tablet 31 00:00: 00 03-23 00:00 :00 No [id number] TAKE ONE TABLET BY MOUTH EVERY MORNING , 1 TABLET AT NOON AND 1 TAB IN THE EVENING [facility] hydralAZINE (APRESOLINE ) injection 10 mg 10-18 19:30: 00 10-18 19:50 :00 No 10mg 10 mg, Slow IV Push, ONCE, 1 dose, On Tue10/18/22 at 1430, ACACIA [facility] oxyCODONE-a cetaminophe n (PERCOCET) 5-325 mg per tablet 2 tablet 17 05:00: 00 10-18 16:59 :00 No 2{tbl} [facility] tranexamic acid (CYKLOKAPRO N) 1,000 mg in NaCl 0.9% (NS) 250 mL piggyback 10-18 05:00: 00 10-18 16:59 :00 No 1000mg [facility] metoprolol succinate XL 25 mg 24 hr tablet 10-15 00:00: 00 03-21 00:00 :00 No [id number] 25mg Take 1 tablet by mouth in the morning. [facility] calcium carbonate 500 mg-2.5 mcg (100 unit) chewable tablet - 00:00: 00 10-14 00:00 :00 No 500mg Take 1 tablet by mouth in the morning. [facility] ergocalcife rol, vitamin d2, 1,250 mcg (50,000 unit) capsule - 00:00: 00 08-10 00:00 :00 No [id number] Take 1 capsule by mouth weekly. [facility] calcium carbonate (CALCIUM 500) 500 mg calcium (1,250 mg) chewable tablet - 00:00: 00 08-10 00:00 :00 No [id number] 1{tbl} Take 1 tablet by mouth in the morning. [facility] Food Supplement, Lactose-Grey e (ENSURE HIGH PROTEIN) liquid 1-05 00:00: 00 Yes [id number] 1{can} Take 1 Can by mouth 3 (three) times daily with meals and at bedtime. [facility] Food Supplement, Lactose-Grey e (ENSURE HIGH PROTEIN) liquid 1-05 00:00: 00 05-11 00:00 :00 No [id number] 1{can} Take 1 Can by mouth 3 (three) times daily with meals and at bedtime. [facility] traZODone 50 mg tablet 1- 00:00: 00 12-01 00:00 :00 No [id number] 50mg Take 1 tablet by mouth at bedtime as needed for Insomnia. [facility] gabapentin 600 mg tablet 07-08 00:00: 00 12-01 00:00 :00 No [id number] 600mg Take 1 tablet by mouth in the morning and 1 tablet at noon and 1 tablet in the evening. [facility] abacavir-do lutegravir- lamivudine (TRIUMEQ) 600-50-300 mg per tablet 07-08 00:00: 00 12-01 00:00 :00 No 1{tbl} Take 1 tablet by mouth every morning. [facility] amLODIPine 10 mg tablet 07-08 00:00: 00 12-01 00:00 :00 No [id number] 10mg Take 1 tablet by mouth in the morning. [facility] hydroCHLORO thiazide 25 mg tablet 07-08 00:00: 00 10-15 00:00 :00 No [id number] 25mg Take 1 tablet by mouth in the morning. [facility] TRIUMEQ 600-50-300 mg per tablet 2021-07 00:00: 00 07-08 00:00 :00 No [id number] TAKE ONE TABLET BY MOUTH EVERY MORNING [facility] TRIUMEQ 600-50-300 mg per tablet 12-23 00:00: 00 04-07 00:00 :00 No [id number] TAKE ONE TABLET BY MOUTH EVERY MORNING [facility] GABAPENTIN 600 mg tablet 2020-07 1- 00:00: 00 07-08 00:00 :00 No [id number] TAKE ONE CAPSULE BY MOUTH THREE TIMES A DAY [facility] AMLODIPINE 10 mg tablet 2020-07 0- 00:00: 00 07-08 00:00 :00 No [id number] 10mg Take 1 tablet by mouth daily. [facility] HYDROCHLORO THIAZIDE 25 mg tablet 2020-07 0-06 00:00: 07-08 00:00 :00 No [id number] TAKE ONE TABLET BY MOUTH DAILY [facility] Food Supplement, Lactose-Grey e (ENSURE ORIGINAL) liquid 2019-07 023 00:00: 00 07-08 00:00 :00 No 1{can} Take 1 Can by mouth 3 (three) times daily. [facility] traZODone 50 mg tablet 2018-07 00:00: 00 07-08 00:00 :00 No [id number] 50mg Take 1 tablet by mouth at bedtime as needed for Insomnia. [facility] MIRTAZAPINE 45 mg tablet 2017-07 00:00: 00 05-24 00:00 :00 No TAKE 1 TABLET BY MOUTH AT BEDTIME. [facility] GABAPENTIN 600 mg tablet 2017-07 0 00:00: 00 09-20 00:00 :00 No TAKE ONE TABLET BY MOUTH THREE TIMES A DAY [facility] HYDROCHLORO THIAZIDE 25 mg tablet 2017-07 0 00:00: 00 09-20 00:00 :00 No TAKE ONE TABLET BY MOUTH ONCE DIALY [facility] abacavir-do lutegravir- lamivudine 600-50-300 mg per tablet 8-07 00:00: 00 10-23 00:00 :00 No TAKE 1 TAB BY MOUTH DAILY. [facility] mirtazapine 45 mg tablet 516 00:00: 00 05-24 00:00 :00 No [id number] 45mg Take 1 tablet by mouth at bedtime. [facility] traMADOL (ULTRAM) 50 mg tablet 11-01 00:00: 00 05-24 00:00 :00 No 50mg Take 1 tablet by mouth every 4 (four) hours as needed for Pain (scale 4-6) or Pain (scale 7-10). [facility] traMADOL 50 mg tablet 2-19 00:00: 00 05-24 00:00 :00 No 50mg Take 1 tablet by mouth every 8 (eight) hours as needed for Pain (scale 4-6). [facility] gabapentin 600 mg tablet 0 1-31 00:00: 00 05-24 00:00 :00 No 1 po TID [facility] atorvastati n (LIPITOR) 20 mg tablet 14 00:00: 00 06-13 00:00 :00 No 1 po daily [facility] Immunizations Ordered Immunization Name Filled Immunization Name Date Status Comments Source TDAP 2024-11-09 00:00:00 Completed [facility] Pneumococcal 20 Conjugate, PCV20 (Prevnar 20) 2022-10-15 00:00:00 Completed [facility] Pneumococcal 20 Conjugate, PCV20 (Prevnar 20) 2022-10-15 00:00:00 Completed [facility] Pneumococcal 20 Conjugate, PCV20 (Prevnar 20) 2022-10-15 00:00:00 Completed [facility] Pneumococcal 20 Conjugate, PCV20 (Prevnar 20) 2022-10-15 00:00:00 Completed [facility] Pneumococcal 20 Conjugate, PCV20 (Prevnar 20) 2022-10-15 00:00:00 Completed [facility] Pneumococcal 20 Conjugate, PCV20 (Prevnar 20) 2022-10-15 00:00:00 Completed [facility] Pneumococcal 20 Conjugate, PCV20 (Prevnar 20) 2022-10-15 00:00:00 Completed [facility] Pneumococcal 20 Conjugate, PCV20 (Prevnar 20) 2022-10-15 00:00:00 Completed [facility] Pneumococcal 20 Conjugate, PCV20 (Prevnar 20) 2022-10-15 00:00:00 Completed [facility] Pneumococcal 20 Conjugate, PCV20 (Prevnar 20) 2022-10-15 00:00:00 Completed [facility] Pneumococcal 20 Conjugate, PCV20 (Prevnar 20) 2022-10-15 00:00:00 Completed [facility] Pneumococcal 20 Conjugate, PCV20 (Prevnar 20) 2022-10-15 00:00:00 Completed [facility] Pneumococcal 20 Conjugate, PCV20 (Prevnar 20) 2022-10-15 00:00:00 Completed [facility] Pneumococcal 20 Conjugate, PCV20 (Prevnar 20) 2022-10-15 00:00:00 Completed [facility] Pneumococcal 20 Conjugate, PCV20 (Prevnar 20) 2022-10-15 00:00:00 Completed [facility] Influenza Virus Vaccine Recomb Quad IM, Preserv and ABX Free 18-64 YRS 2020-04-25 00:00:00 Completed [facility] Influenza Virus Vaccine Recomb Quad IM, Preserv and ABX Free 18-64 YRS 2020-04-25 00:00:00 Completed [facility] Influenza Virus Vaccine Recomb Quad IM, Preserv and ABX Free 18-64 YRS 2020-04-25 00:00:00 Completed [facility] Influenza Virus Vaccine Recomb Quad IM, Preserv and ABX Free 18-64 YRS 2020-04-25 00:00:00 Completed [facility] Influenza Virus Vaccine Recomb Quad IM, Preserv and ABX Free 18-64 YRS 2020-04-25 00:00:00 Completed [facility] Influenza Virus Vaccine Recomb Quad IM, Preserv and ABX Free 18-64 YRS 2020-04-25 00:00:00 Completed [facility] Influenza Virus Vaccine Recomb Quad IM, Preserv and ABX Free 18-64 YRS 2020-04-25 00:00:00 Completed [facility] Influenza Virus Vaccine Recomb Quad IM, Preserv and ABX Free 18-64 YRS 2020-04-25 00:00:00 Completed [facility] Influenza Virus Vaccine Recomb Quad IM, Preserv and ABX Free 18-64 YRS 2020-04-25 00:00:00 Completed [facility] Influenza Virus Vaccine Recomb Quad IM, Preserv and ABX Free 18-64 YRS 2020-04-25 00:00:00 Completed [facility] Influenza Virus Vaccine Recomb Quad IM, Preserv and ABX Free 18-64 YRS 2020-04-25 00:00:00 Completed [facility] Influenza Virus Vaccine Recomb Quad IM, Preserv and ABX Free 18-64 YRS 2020-04-25 00:00:00 Completed [facility] Influenza Virus Vaccine Recomb Quad IM, Preserv and ABX Free 18-64 YRS 2020-04-25 00:00:00 Completed [facility] Influenza Virus Vaccine Recomb Quad IM, Preserv and ABX Free 18-64 YRS 2020-04-25 00:00:00 Completed [facility] Influenza Virus Vaccine Recomb Quad IM, Preserv and ABX Free 18-64 YRS 2020-04-25 00:00:00 Completed [facility] Influenza Virus Vaccine Recomb Quad IM, Preserv and ABX Free 18-64 YRS 2020-04-25 00:00:00 Completed [facility] Influenza Virus Vaccine Recomb Quad IM, Preserv and ABX Free 18-64 YRS 2020-04-25 00:00:00 Completed [facility] Influenza Virus Vaccine Recomb Quad IM, Preserv and ABX Free 18-64 YRS 2020-04-25 00:00:00 Completed [facility] Influenza Virus Vaccine Recomb Quad IM, Preserv and ABX Free 18-64 YRS 2020-04-25 00:00:00 Completed [facility] Influenza Virus Vaccine Recomb Quad IM, Preserv and ABX Free 18-64 YRS 2020-04-25 00:00:00 Completed [facility] Influenza Virus Vaccine Recomb Quad IM, Preserv and ABX Free 18-64 YRS 2020-04-25 00:00:00 Completed [facility] Influenza Virus Vaccine Recomb Quad IM, Preserv and ABX Free 18-64 YRS 2020-04-25 00:00:00 Completed [facility] Influenza Virus Vaccine Recomb Quad IM, Preserv and ABX Free 18-64 YRS 2020-04-25 00:00:00 Completed [facility] Influenza Virus Vaccine Recomb Quad IM, Preserv and ABX Free 18-64 YRS 2020-04-25 00:00:00 Completed [facility] Influenza Virus Vaccine Recomb Quad IM, Preserv and ABX Free 18-64 YRS 2020-04-25 00:00:00 Completed [facility] Influenza Virus Vaccine Recomb Quad IM, Preserv and ABX Free 18-64 YRS 2020-04-25 00:00:00 Completed [facility] Influenza Virus Vaccine Recomb Quad IM, Preserv and ABX Free 18-64 YRS 2020-04-25 00:00:00 Completed [facility] Influenza Virus Vaccine Recomb Quad IM, Preserv and ABX Free 18-64 YRS 2020-04-25 00:00:00 Completed [facility] Influenza Virus Vaccine Recomb Quad IM, Preserv and ABX Free 18-64 YRS 2020-04-25 00:00:00 Completed [facility] Influenza Virus Vaccine Recomb Quad IM, Preserv and ABX Free 18-64 YRS 2020-04-25 00:00:00 Completed [facility] Influenza Virus Vaccine Recomb Quad IM, Preserv and ABX Free 18-64 YRS 2020-04-25 00:00:00 Completed [facility] Influenza Virus Vaccine Recomb Quad IM, Preserv and ABX Free 18-64 YRS 2020-04-25 00:00:00 Completed [facility] Influenza Virus Vaccine Recomb Quad IM, Preserv and ABX Free 18-64 YRS 2020-04-25 00:00:00 Completed [facility] Influenza Virus Vaccine Recomb Quad IM, Preserv and ABX Free 18-64 YRS 2020-04-25 00:00:00 Completed [facility] Influenza Virus Vaccine Recomb Quad IM, Preserv and ABX Free 18-64 YRS 2020-04-25 00:00:00 Completed [facility] Influenza Virus Vaccine Recomb Quad IM, Preserv and ABX Free 18-64 YRS 2020-04-25 00:00:00 Completed [facility] Influenza Virus Vaccine Recomb Quad IM, Preserv and ABX Free 18-64 YRS 2020-04-25 00:00:00 Completed [facility] Influenza Virus Vaccine Recomb Quad IM, Preserv and ABX Free 18-64 YRS 2020-04-25 00:00:00 Completed [facility] Influenza Virus Vaccine Recomb Quad IM, Preserv and ABX Free 18-64 YRS 2020-04-25 00:00:00 Completed [facility] Influenza Virus Vaccine Recomb Quad IM, Preserv and ABX Free 18-64 YRS 2020-04-25 00:00:00 Completed [facility] Influenza Virus Vaccine Recomb Quad IM, Preserv and ABX Free 18-64 YRS 2020-04-25 00:00:00 Completed [facility] Influenza Virus Vaccine Recomb Quad IM, Preserv and ABX Free 18-64 YRS 2020-04-25 00:00:00 Completed [facility] Influenza Virus Vaccine Recomb Quad IM, Preserv and ABX Free 18-64 YRS 2020-04-25 00:00:00 Completed [facility] Influenza Virus Vaccine Recomb Quad IM, Preserv and ABX Free 18-64 YRS 2020-04-25 00:00:00 Completed [facility] Influenza Virus Vaccine Recomb Quad IM, Preserv and ABX Free 18-64 YRS 2019-08-27 00:00:00 Completed [facility] Influenza Virus Vaccine Recomb Quad IM, Preserv and ABX Free 18-64 YRS 2019-08-27 00:00:00 Completed [facility] Influenza Virus Vaccine Recomb Quad IM, Preserv and ABX Free 18-64 YRS 2019-08-27 00:00:00 Completed [facility] Influenza Virus Vaccine Recomb Quad IM, Preserv and ABX Free 18-64 YRS 2019-08-27 00:00:00 Completed [facility] Influenza Virus Vaccine Recomb Quad IM, Preserv and ABX Free 18-64 YRS 2019-08-27 00:00:00 Completed [facility] Influenza Virus Vaccine Recomb Quad IM, Preserv and ABX Free 18-64 YRS 2019-08-27 00:00:00 Completed [facility] Influenza Virus Vaccine Recomb Quad IM, Preserv and ABX Free 18-64 YRS 2019-08-27 00:00:00 Completed [facility] Influenza Virus Vaccine Recomb Quad IM, Preserv and ABX Free 18-64 [facility] 2019-08-27 00:00:00 Completed [facility] Influenza Virus Vaccine Recomb Quad IM, Preserv and ABX Free 18-64 YRS 2019-08-27 00:00:00 Completed [facility] Influenza Virus Vaccine Recomb Quad IM, Preserv and ABX Free 18-64 [facility] 2019-08-27 00:00:00 Completed [facility] Influenza Virus Vaccine Recomb Quad IM, Preserv and ABX Free 18-64 YRS 2019-08-27 00:00:00 Completed [facility] Influenza Virus Vaccine Recomb Quad IM, Preserv and ABX Free 18-64 YRS 2019-08-27 00:00:00 Completed [facility] Influenza Virus Vaccine Recomb Quad IM, Preserv and ABX Free 18-64 YRS 2019-08-27 00:00:00 Completed [facility] Influenza Virus Vaccine Recomb Quad IM, Preserv and ABX Free 18-64 YRS 2019-08-27 00:00:00 Completed [facility] Influenza Virus Vaccine Recomb Quad IM, Preserv and ABX Free 18-64 YRS 2019-08-27 00:00:00 Completed [facility] Influenza Virus Vaccine Recomb Quad IM, Preserv and ABX Free 18-64 YRS 2019-08-27 00:00:00 Completed [facility] Influenza Virus Vaccine Recomb Quad IM, Preserv and ABX Free 18-64 YRS 2019-08-27 00:00:00 Completed [facility] Influenza Virus Vaccine Recomb Quad IM, Preserv and ABX Free 18-64 YRS 2019-08-27 00:00:00 Completed [facility] Influenza Virus Vaccine Recomb Quad IM, Preserv and ABX Free 18-64 YRS 2019-08-27 00:00:00 Completed [facility] Influenza Virus Vaccine Recomb Quad IM, Preserv and ABX Free 18-64 YRS 2019-08-27 00:00:00 Completed [facility] Influenza Virus Vaccine Recomb Quad IM, Preserv and ABX Free 18-64 YRS 2019-08-27 00:00:00 Completed [facility] Influenza Virus Vaccine Recomb Quad IM, Preserv and ABX Free 18-64 YRS 2019-08-27 00:00:00 Completed [facility] Influenza Virus Vaccine Recomb Quad IM, Preserv and ABX Free 18-64 [facility] 2019-08-27 00:00:00 Completed [facility] Influenza Virus Vaccine Recomb Quad IM, Preserv and ABX Free 18-64 YRS 2019-08-27 00:00:00 Completed [facility] Influenza Virus Vaccine Recomb Quad IM, Preserv and ABX Free 18-64 [facility] 2019-08-27 00:00:00 Completed [facility] Influenza Virus Vaccine Recomb Quad IM, Preserv and ABX Free 18-64 YRS 2019-08-27 00:00:00 Completed [facility] Influenza Virus Vaccine Recomb Quad IM, Preserv and ABX Free 18-64 YRS 2019-08-27 00:00:00 Completed [facility] Influenza Virus Vaccine Recomb Quad IM, Preserv and ABX Free 18-64 YRS 2019-08-27 00:00:00 Completed [facility] Influenza Virus Vaccine Recomb Quad IM, Preserv and ABX Free 18-64 YRS 2019-08-27 00:00:00 Completed [facility] Influenza Virus Vaccine Recomb Quad IM, Preserv and ABX Free 18-64 YRS 2019-08-27 00:00:00 Completed [facility] Influenza Virus Vaccine Recomb Quad IM, Preserv and ABX Free 1862 [facility] 2019-08-27 00:00:00 Completed [facility] Influenza Virus Vaccine Recomb Quad IM, Preserv and ABX Free 18-64 YRS 2019-08-27 00:00:00 Completed [facility] Influenza Virus Vaccine Recomb Quad IM, Preserv and ABX Free 18-64 YRS 2019-08-27 00:00:00 Completed [facility] Influenza Virus Vaccine Recomb Quad IM, Preserv and ABX Free 18-64 [facility] 2019-08-27 00:00:00 Completed [facility] Influenza Virus Vaccine Recomb Quad IM, Preserv and ABX Free 18-64 [facility] 2019-08-27 00:00:00 Completed [facility] Influenza Virus Vaccine Recomb Quad IM, Preserv and ABX Free 18-64 [facility] 2019-08-27 00:00:00 Completed [facility] Influenza Virus Vaccine Recomb Quad IM, Preserv and ABX Free 18-64 [facility] 2019-08-27 00:00:00 Completed [facility] Influenza Virus Vaccine Recomb Quad IM, Preserv and ABX Free 18-64 [facility] 2019-08-27 00:00:00 Completed [facility] Influenza Virus Vaccine Recomb Quad IM, Preserv and ABX Free 18-64 [facility] 2019-08-27 00:00:00 Completed [facility] Influenza Virus Vaccine Recomb Quad IM, Preserv and ABX Free 18-64 [facility] 2019-08-27 00:00:00 Completed [facility] Influenza Virus Vaccine Recomb Quad IM, Preserv and ABX Free 18-64 [facility] 2019-08-27 00:00:00 Completed [facility] Influenza Virus Vaccine Recomb Quad IM, Preserv and ABX Free 18-64 [facility] 2019-08-27 00:00:00 Completed [facility] Influenza Virus Vaccine Recomb Quad IM, Preserv and ABX Free 18-64 [facility] 2019-08-27 00:00:00 Completed [facility] Influenza Virus Vaccine Recomb Quad IM, Preserv and ABX Free 18-64 [facility] 2019-08-27 00:00:00 Completed [facility] Influenza Virus Vaccine Quad .5 mL IM 6+ MO 2018-05-24 00:00:00 Completed [facility] Influenza Virus Vaccine Quad .5 mL IM 6+ MO 2018-05-24 00:00:00 Completed [facility] Influenza Virus Vaccine Quad .5 mL IM 6+ MO 2018-05-24 00:00:00 Completed [facility] Influenza Virus Vaccine Quad .5 mL IM 6+ MO 2018-05-24 00:00:00 Completed [facility] Influenza Virus Vaccine Quad .5 mL IM 6+ MO 2018-05-24 00:00:00 Completed [facility] Influenza Virus Vaccine Quad .5 mL IM 6+ MO 2018-05-24 00:00:00 Completed [facility] Influenza Virus Vaccine Quad .5 mL IM 6+ MO 2018-05-24 00:00:00 Completed [facility] Influenza Virus Vaccine Quad .5 mL IM 6+ MO 2018-05-24 00:00:00 Completed [facility] Influenza Virus Vaccine Quad .5 mL IM 6+ MO 2018-05-24 00:00:00 Completed [facility] Influenza Virus Vaccine Quad .5 mL IM 6+ MO 2018-05-24 00:00:00 Completed [facility] Influenza Virus Vaccine Quad .5 mL IM 6+ MO 2018-05-24 00:00:00 Completed [facility] Influenza Virus Vaccine Quad .5 mL IM 6+ MO 2018-05-24 00:00:00 Completed [facility] Influenza Virus Vaccine Quad .5 mL IM 6+ MO 2018-05-24 00:00:00 Completed [facility] Influenza Virus Vaccine Quad .5 mL IM 6+ MO 2018-05-24 00:00:00 Completed [facility] Influenza Virus Vaccine Quad .5 mL IM 6+ MO 2018-05-24 00:00:00 Completed [facility] Influenza Virus Vaccine Quad .5 mL IM 6+ MO 2018-05-24 00:00:00 Completed [facility] Influenza Virus Vaccine Quad .5 mL IM 6+ MO 2018-05-24 00:00:00 Completed [facility] Influenza Virus Vaccine Quad .5 mL IM 6+ MO 2018-05-24 00:00:00 Completed [facility] Influenza Virus Vaccine Quad .5 mL IM 6+ MO 2018-05-24 00:00:00 Completed [facility] Influenza Virus Vaccine Quad .5 mL IM 6+ MO 2018-05-24 00:00:00 Completed [facility] Influenza Virus Vaccine Quad .5 mL IM 6+ MO 2018-05-24 00:00:00 Completed [facility] Influenza Virus Vaccine Quad .5 mL IM 6+ MO 2018-05-24 00:00:00 Completed [facility] Influenza Virus Vaccine Quad .5 mL IM 6+ MO 2018-05-24 00:00:00 Completed [facility] Influenza Virus Vaccine Quad .5 mL IM 6+ MO 2018-05-24 00:00:00 Completed [facility] Influenza Virus Vaccine Quad .5 mL IM 6+ MO 2018-05-24 00:00:00 Completed [facility] Influenza Virus Vaccine Quad .5 mL IM 6+ MO 2018-05-24 00:00:00 Completed [facility] Influenza Virus Vaccine Quad .5 mL IM 6+ MO 2018-05-24 00:00:00 Completed [facility] Influenza Virus Vaccine Quad .5 mL IM 6+ MO 2018-05-24 00:00:00 Completed [facility] Influenza Virus Vaccine Quad .5 mL IM 6+ MO 2018-05-24 00:00:00 Completed [facility] Influenza Virus Vaccine Quad .5 mL IM 6+ MO 2018-05-24 00:00:00 Completed [facility] Influenza Virus Vaccine Quad .5 mL IM 6+ MO 2018-05-24 00:00:00 Completed [facility] Influenza Virus Vaccine Quad .5 mL IM 6+ MO (FLUZONE/FLULAVAL/F LUARIX) 2018-05-24 00:00:00 Completed [facility] Influenza Virus Vaccine Quad .5 mL IM 6+ MO 2018-05-24 00:00:00 Completed [facility] Influenza Virus Vaccine Quad .5 mL IM 6+ MO 2018-05-24 00:00:00 Completed [facility] Influenza Virus Vaccine Quad .5 mL IM 6+ MO 2018-05-24 00:00:00 Completed [facility] Influenza Virus Vaccine Quad .5 mL IM 6+ MO 2018-05-24 00:00:00 Completed [facility] Influenza Virus Vaccine Quad .5 mL IM 6+ MO 2018-05-24 00:00:00 Completed [facility] Influenza Virus Vaccine Quad .5 mL IM 6+ MO 2018-05-24 00:00:00 Completed [facility] Influenza Virus Vaccine Quad .5 mL IM 6+ MO 2018-05-24 00:00:00 Completed [facility] Influenza Virus Vaccine Quad .5 mL IM 6+ MO 2018-05-24 00:00:00 Completed [facility] Influenza Virus Vaccine Quad .5 mL IM 6+ MO 2018-05-24 00:00:00 Completed [facility] Influenza Virus Vaccine Quad .5 mL IM 6+ MO 2018-05-24 00:00:00 Completed [facility] Influenza Virus Vaccine Quad .5 mL IM 6+ MO 2018-05-24 00:00:00 Completed [facility] Influenza Virus Vaccine Quad .5 mL IM 6+ MO (FLUZONE/FLULAVAL/F LUARIX) 2018-05-24 00:00:00 Completed [facility] Pneumococcal Polysaccharide, PPSV23 (PNEUMOVAX) 2017-08-03 00:00:00 Completed [facility] Pneumococcal Polysaccharide, PPSV23 (PNEUMOVAX) 2017-08-03 00:00:00 Completed [facility] Pneumococcal Polysaccharide, PPSV23 (PNEUMOVAX) 2017-08-03 00:00:00 Completed [facility] Pneumococcal Polysaccharide, PPSV23 (PNEUMOVAX) 2017-08-03 00:00:00 Completed [facility] Pneumococcal Polysaccharide, PPSV23 (PNEUMOVAX) 2017-08-03 00:00:00 Completed [facility] Pneumococcal Polysaccharide, PPSV23 (PNEUMOVAX) 2017-08-03 00:00:00 Completed [facility] Pneumococcal Polysaccharide, PPSV23 (PNEUMOVAX) 2017-08-03 00:00:00 Completed [facility] Pneumococcal Polysaccharide, PPSV23 (PNEUMOVAX) 2017-08-03 00:00:00 Completed [facility] Pneumococcal Polysaccharide, PPSV23 (PNEUMOVAX) 2017-08-03 00:00:00 Completed [facility] Pneumococcal Polysaccharide, PPSV23 (PNEUMOVAX) 2017-08-03 00:00:00 Completed [facility] Pneumococcal Polysaccharide, PPSV23 (PNEUMOVAX) 2017-08-03 00:00:00 Completed [facility] Pneumococcal Polysaccharide, PPSV23 (PNEUMOVAX) 2017-08-03 00:00:00 Completed [facility] Pneumococcal Polysaccharide, PPSV23 (PNEUMOVAX) 2017-08-03 00:00:00 Completed [facility] Pneumococcal Polysaccharide, PPSV23 (PNEUMOVAX) 2017-08-03 00:00:00 Completed [facility] Pneumococcal Polysaccharide, PPSV23 (PNEUMOVAX) 2017-08-03 00:00:00 Completed [facility] Pneumococcal Polysaccharide, PPSV23 (PNEUMOVAX) 2017-08-03 00:00:00 Completed [facility] Pneumococcal Polysaccharide, PPSV23 (PNEUMOVAX) 2017-08-03 00:00:00 Completed [facility] Pneumococcal Polysaccharide, PPSV23 (PNEUMOVAX) 2017-08-03 00:00:00 Completed [facility] Pneumococcal Polysaccharide, PPSV23 (PNEUMOVAX) 2017-08-03 00:00:00 Completed [facility] Pneumococcal Polysaccharide, PPSV23 (PNEUMOVAX) 2017-08-03 00:00:00 Completed [facility] Pneumococcal Polysaccharide, PPSV23 (PNEUMOVAX) 2017-08-03 00:00:00 Completed [facility] Pneumococcal Polysaccharide, PPSV23 (PNEUMOVAX) 2017-08-03 00:00:00 Completed [facility] Pneumococcal Polysaccharide, PPSV23 (PNEUMOVAX) 2017-08-03 00:00:00 Completed [facility] Pneumococcal Polysaccharide, PPSV23 (PNEUMOVAX) 2017-08-03 00:00:00 Completed [facility] Pneumococcal Polysaccharide, PPSV23 (PNEUMOVAX) 2017-08-03 00:00:00 Completed [facility] Pneumococcal Polysaccharide, PPSV23 (PNEUMOVAX) 2017-08-03 00:00:00 Completed [facility] Pneumococcal Polysaccharide, PPSV23 (PNEUMOVAX) 2017-08-03 00:00:00 Completed [facility] Pneumococcal Polysaccharide, PPSV23 (PNEUMOVAX) 2017-08-03 00:00:00 Completed [facility] Pneumococcal Polysaccharide, PPSV23 (PNEUMOVAX) 2017-08-03 00:00:00 Completed [facility] Pneumococcal Polysaccharide, PPSV23 (PNEUMOVAX) 2017-08-03 00:00:00 Completed [facility] Pneumococcal Polysaccharide, PPSV23 (PNEUMOVAX) 2017-08-03 00:00:00 Completed [facility] Pneumococcal Polysaccharide, PPSV23 (PNEUMOVAX) 2017-08-03 00:00:00 Completed [facility] Pneumococcal Polysaccharide, PPSV23 (PNEUMOVAX) 2017-08-03 00:00:00 Completed [facility] Pneumococcal Polysaccharide, PPSV23 (PNEUMOVAX) 2017-08-03 00:00:00 Completed [facility] Pneumococcal Polysaccharide, PPSV23 (PNEUMOVAX) 2017-08-03 00:00:00 Completed [facility] Pneumococcal Polysaccharide, PPSV23 (PNEUMOVAX) 2017-08-03 00:00:00 Completed [facility] Pneumococcal Polysaccharide, PPSV23 (PNEUMOVAX) 2017-08-03 00:00:00 Completed [facility] Pneumococcal Polysaccharide, PPSV23 (PNEUMOVAX) 2017-08-03 00:00:00 Completed [facility] Pneumococcal Polysaccharide, PPSV23 (PNEUMOVAX) 2017-08-03 00:00:00 Completed [facility] Pneumococcal Polysaccharide, PPSV23 (PNEUMOVAX) 2017-08-03 00:00:00 Completed [facility] Pneumococcal Polysaccharide, PPSV23 (PNEUMOVAX) 2017-08-03 00:00:00 Completed [facility] Pneumococcal Polysaccharide, PPSV23 (PNEUMOVAX) 2017-08-03 00:00:00 Completed [facility] Pneumococcal Polysaccharide, PPSV23 (PNEUMOVAX) 2017-08-03 00:00:00 Completed [facility] Pneumococcal Polysaccharide, PPSV23 (PNEUMOVAX) 2017-08-03 00:00:00 Completed [facility] Influenza Virus Vaccine Quad IM 3+ YRS 2017-04-27 00:00:00 Completed [facility] Influenza Virus Vaccine Quad IM 3+ YRS 2017-04-27 00:00:00 Completed [facility] Influenza Virus Vaccine Quad IM 3+ YRS 2017-04-27 00:00:00 Completed [facility] Influenza Virus Vaccine Quad IM 3+ YRS 2017-04-27 00:00:00 Completed [facility] Influenza Virus Vaccine Quad IM 3+ YRS 2017-04-27 00:00:00 Completed [facility] Influenza Virus Vaccine Quad IM 3+ YRS 2017-04-27 00:00:00 Completed [facility] Influenza Virus Vaccine Quad IM 3+ YRS 2017-04-27 00:00:00 Completed [facility] Influenza Virus Vaccine Quad IM 3+ YRS 2017-04-27 00:00:00 Completed [facility] Influenza Virus Vaccine Quad IM 3+ YRS 2017-04-27 00:00:00 Completed [facility] Influenza Virus Vaccine Quad IM 3+ YRS 2017-04-27 00:00:00 Completed [facility] Influenza Virus Vaccine Quad IM 3+ YRS 2017-04-27 00:00:00 Completed [facility] Influenza Virus Vaccine Quad IM 3+ YRS 2017-04-27 00:00:00 Completed [facility] Influenza Virus Vaccine Quad IM 3+ YRS 2017-04-27 00:00:00 Completed [facility] Influenza Virus Vaccine Quad IM 3+ YRS 2017-04-27 00:00:00 Completed [facility] Influenza Virus Vaccine Quad IM 3+ YRS 2017-04-27 00:00:00 Completed [facility] Influenza Virus Vaccine Quad IM 3+ YRS 2017-04-27 00:00:00 Completed [facility] Influenza Virus Vaccine Quad IM 3+ YRS 2017-04-27 00:00:00 Completed [facility] Influenza Virus Vaccine Quad IM 3+ YRS 2017-04-27 00:00:00 Completed [facility] Influenza Virus Vaccine Quad IM 3+ YRS 2017-04-27 00:00:00 Completed [facility] Influenza Virus Vaccine Quad IM 3+ YRS 2017-04-27 00:00:00 Completed [facility] Influenza Virus Vaccine Quad IM 3+ YRS 2017-04-27 00:00:00 Completed [facility] Influenza Virus Vaccine Quad IM 3+ YRS 2017-04-27 00:00:00 Completed [facility] Influenza Virus Vaccine Quad IM 3+ YRS 2017-04-27 00:00:00 Completed [facility] Influenza Virus Vaccine Quad IM 3+ YRS 2017-04-27 00:00:00 Completed [facility] Influenza Virus Vaccine Quad IM 3+ YRS 2017-04-27 00:00:00 Completed [facility] Influenza Virus Vaccine Quad IM 3+ YRS 2017-04-27 00:00:00 Completed [facility] Influenza Virus Vaccine Quad IM 3+ YRS 2017-04-27 00:00:00 Completed [facility] Influenza Virus Vaccine Quad IM 3+ YRS 2017-04-27 00:00:00 Completed [facility] Influenza Virus Vaccine Quad IM 3+ YRS 2017-04-27 00:00:00 Completed [facility] Influenza Virus Vaccine Quad IM 3+ YRS 2017-04-27 00:00:00 Completed [facility] Influenza Virus Vaccine Quad IM 3+ YRS 2017-04-27 00:00:00 Completed [facility] Influenza Virus Vaccine Quad IM 3+ YRS 2017-04-27 00:00:00 Completed [facility] Influenza Virus Vaccine Quad IM 3+ YRS 2017-04-27 00:00:00 Completed [facility] Influenza Virus Vaccine Quad IM 3+ YRS 2017-04-27 00:00:00 Completed [facility] Influenza Virus Vaccine Quad IM 3+ YRS 2017-04-27 00:00:00 Completed [facility] Influenza Virus Vaccine Quad IM 3+ YRS 2017-04-27 00:00:00 Completed [facility] Influenza Virus Vaccine Quad IM 3+ YRS 2017-04-27 00:00:00 Completed [facility] Influenza Virus Vaccine Quad IM 3+ YRS 2017-04-27 00:00:00 Completed [facility] Influenza Virus Vaccine Quad IM 3+ YRS 2017-04-27 00:00:00 Completed [facility] Influenza Virus Vaccine Quad IM 3+ YRS 2017-04-27 00:00:00 Completed [facility] Influenza Virus Vaccine Quad IM 3+ YRS 2017-04-27 00:00:00 Completed [facility] Influenza Virus Vaccine Quad IM 3+ YRS 2017-04-27 00:00:00 Completed [facility] Influenza Virus Vaccine Quad IM 3+ YRS 2017-04-27 00:00:00 Completed [facility] Influenza Virus Vaccine Quad IM 3+ YRS 2017-04-27 00:00:00 Completed [facility] Influenza Virus Vaccine Quad IM 3+ YRS 2015-06-04 00:00:00 Completed [facility] Pneumococcal 13 Conjugate, PCV13 (Prevnar 13) 2015-06-04 00:00:00 Completed [facility] Influenza Virus Vaccine Quad IM 3+ YRS 2015-06-04 00:00:00 Completed [facility] Pneumococcal 13 Conjugate, PCV13 (Prevnar 13) 2015-06-04 00:00:00 Completed [facility] Influenza Virus Vaccine Quad IM 3+ YRS 2015-06-04 00:00:00 Completed [facility] Pneumococcal 13 Conjugate, PCV13 (Prevnar 13) 2015-06-04 00:00:00 Completed [facility] Influenza Virus Vaccine Quad IM 3+ YRS 2015-06-04 00:00:00 Completed [facility] Pneumococcal 13 Conjugate, PCV13 (Prevnar 13) 2015-06-04 00:00:00 Completed [facility] Influenza Virus Vaccine Quad IM 3+ YRS 2015-06-04 00:00:00 Completed [facility] Pneumococcal 13 Conjugate, PCV13 (Prevnar 13) 2015-06-04 00:00:00 Completed [facility] Influenza Virus Vaccine Quad IM 3+ YRS 2015-06-04 00:00:00 Completed [facility] Pneumococcal 13 Conjugate, PCV13 (Prevnar 13) 2015-06-04 00:00:00 Completed [facility] Influenza Virus Vaccine Quad IM 3+ YRS 2015-06-04 00:00:00 Completed [facility] Pneumococcal 13 Conjugate, PCV13 (Prevnar 13) 2015-06-04 00:00:00 Completed [facility] Influenza Virus Vaccine Quad IM 3+ YRS 2015-06-04 00:00:00 Completed [facility] Pneumococcal 13 Conjugate, PCV13 (Prevnar 13) 2015-06-04 00:00:00 Completed [facility] Influenza Virus Vaccine Quad IM 3+ YRS 2015-06-04 00:00:00 Completed [facility] Pneumococcal 13 Conjugate, PCV13 (Prevnar 13) 2015-06-04 00:00:00 Completed [facility] Influenza Virus Vaccine Quad IM 3+ YRS 2015-06-04 00:00:00 Completed [facility] Pneumococcal 13 Conjugate, PCV13 (Prevnar 13) 2015-06-04 00:00:00 Completed [facility] Influenza Virus Vaccine Quad IM 3+ YRS 2015-06-04 00:00:00 Completed [facility] Pneumococcal 13 Conjugate, PCV13 (Prevnar 13) 2015-06-04 00:00:00 Completed [facility] Influenza Virus Vaccine Quad IM 3+ YRS 2015-06-04 00:00:00 Completed [facility] Pneumococcal 13 Conjugate, PCV13 (Prevnar 13) 2015-06-04 00:00:00 Completed [facility] Influenza Virus Vaccine Quad IM 3+ YRS 2015-06-04 00:00:00 Completed [facility] Pneumococcal 13 Conjugate, PCV13 (Prevnar 13) 2015-06-04 00:00:00 Completed [facility] Influenza Virus Vaccine Quad IM 3+ YRS 2015-06-04 00:00:00 Completed [facility] Pneumococcal 13 Conjugate, PCV13 (Prevnar 13) 2015-06-04 00:00:00 Completed [facility] Influenza Virus Vaccine Quad IM 3+ YRS 2015-06-04 00:00:00 Completed [facility] Pneumococcal 13 Conjugate, PCV13 (Prevnar 13) 2015-06-04 00:00:00 Completed [facility] Influenza Virus Vaccine Quad IM 3+ YRS 2015-06-04 00:00:00 Completed [facility] Pneumococcal 13 Conjugate, PCV13 (Prevnar 13) 2015-06-04 00:00:00 Completed [facility] Influenza Virus Vaccine Quad IM 3+ YRS 2015-06-04 00:00:00 Completed [facility] Pneumococcal 13 Conjugate, PCV13 (Prevnar 13) 2015-06-04 00:00:00 Completed [facility] Influenza Virus Vaccine Quad IM 3+ YRS 2015-06-04 00:00:00 Completed [facility] Pneumococcal 13 Conjugate, PCV13 (Prevnar 13) 2015-06-04 00:00:00 Completed [facility] Influenza Virus Vaccine Quad IM 3+ YRS 2015-06-04 00:00:00 Completed [facility] Pneumococcal 13 Conjugate, PCV13 (Prevnar 13) 2015-06-04 00:00:00 Completed [facility] Influenza Virus Vaccine Quad IM 3+ YRS 2015-06-04 00:00:00 Completed [facility] Pneumococcal 13 Conjugate, PCV13 (Prevnar 13) 2015-06-04 00:00:00 Completed [facility] Influenza Virus Vaccine Quad IM 3+ YRS 2015-06-04 00:00:00 Completed [facility] Pneumococcal 13 Conjugate, PCV13 (Prevnar 13) 2015-06-04 00:00:00 Completed [facility] Influenza Virus Vaccine Quad IM 3+ YRS 2015-06-04 00:00:00 Completed [facility] Pneumococcal 13 Conjugate, PCV13 (Prevnar 13) 2015-06-04 00:00:00 Completed [facility] Influenza Virus Vaccine Quad IM 3+ YRS 2015-06-04 00:00:00 Completed [facility] Pneumococcal 13 Conjugate, PCV13 (Prevnar 13) 2015-06-04 00:00:00 Completed [facility] Influenza Virus Vaccine Quad IM 3+ YRS 2015-06-04 00:00:00 Completed [facility] Pneumococcal 13 Conjugate, PCV13 (Prevnar 13) 2015-06-04 00:00:00 Completed [facility] Influenza Virus Vaccine Quad IM 3+ YRS 2015-06-04 00:00:00 Completed [facility] Pneumococcal 13 Conjugate, PCV13 (Prevnar 13) 2015-06-04 00:00:00 Completed [facility] Influenza Virus Vaccine Quad IM 3+ YRS 2015-06-04 00:00:00 Completed [facility] Pneumococcal 13 Conjugate, PCV13 (Prevnar 13) 2015-06-04 00:00:00 Completed [facility] Influenza Virus Vaccine Quad IM 3+ YRS 2015-06-04 00:00:00 Completed [facility] Pneumococcal 13 Conjugate, PCV13 (Prevnar 13) 2015-06-04 00:00:00 Completed [facility] Influenza Virus Vaccine Quad IM 3+ YRS 2015-06-04 00:00:00 Completed [facility] Pneumococcal 13 Conjugate, PCV13 (Prevnar 13) 2015-06-04 00:00:00 Completed [facility] Influenza Virus Vaccine Quad IM 3+ 2015-06-04 00:00:00 Completed [facility] Pneumococcal 13 Conjugate, PCV13 (Prevnar 13) 2015-06-04 00:00:00 Completed [facility] Influenza Virus Vaccine Quad IM 3+ YRS 2015-06-04 00:00:00 Completed [facility] Pneumococcal 13 Conjugate, PCV13 (Prevnar 13) 2015-06-04 00:00:00 Completed [facility] Influenza Virus Vaccine Quad IM 3+ YRS 2015-06-04 00:00:00 Completed [facility] Pneumococcal 13 Conjugate, PCV13 (Prevnar 13) 2015-06-04 00:00:00 Completed [facility] Influenza Virus Vaccine Quad IM 3+ YRS 2015-06-04 00:00:00 Completed [facility] Pneumococcal 13 Conjugate, PCV13 (Prevnar 13) 2015-06-04 00:00:00 Completed [facility] Influenza Virus Vaccine Quad IM 3+ YRS 2015-06-04 00:00:00 Completed [facility] Pneumococcal 13 Conjugate, PCV13 (Prevnar 13) 2015-06-04 00:00:00 Completed [facility] Influenza Virus Vaccine Quad IM 3+ YRS 2015-06-04 00:00:00 Completed [facility] Pneumococcal 13 Conjugate, PCV13 (Prevnar 13) 2015-06-04 00:00:00 Completed [facility] Influenza Virus Vaccine Quad IM 3+ YRS 2015-06-04 00:00:00 Completed [facility] Pneumococcal 13 Conjugate, PCV13 (Prevnar 13) 2015-06-04 00:00:00 Completed [facility] Influenza Virus Vaccine Quad IM 3+ YRS 2015-06-04 00:00:00 Completed [facility] Pneumococcal 13 Conjugate, PCV13 (Prevnar 13) 2015-06-04 00:00:00 Completed [facility] Influenza Virus Vaccine Quad IM 3+ YRS 2015-06-04 00:00:00 Completed [facility] Pneumococcal 13 Conjugate, PCV13 (Prevnar 13) 2015-06-04 00:00:00 Completed [facility] Influenza Virus Vaccine Quad IM 3+ 2015-06-04 00:00:00 Completed [facility] Pneumococcal 13 Conjugate, PCV13 (Prevnar 13) 2015-06-04 00:00:00 Completed [facility] Influenza Virus Vaccine Quad IM 3+ YRS 2015-06-04 00:00:00 Completed [facility] Pneumococcal 13 Conjugate, PCV13 (Prevnar 13) 2015-06-04 00:00:00 Completed [facility] Influenza Virus Vaccine Quad IM 3+ YRS 2015-06-04 00:00:00 Completed [facility] Pneumococcal 13 Conjugate, PCV13 (Prevnar 13) 2015-06-04 00:00:00 Completed [facility] Influenza Virus Vaccine Quad IM 3+ YRS 2015-06-04 00:00:00 Completed [facility] Pneumococcal 13 Conjugate, PCV13 (Prevnar 13) 2015-06-04 00:00:00 Completed [facility] Influenza Virus Vaccine Quad IM 3+ YRS 2015-06-04 00:00:00 Completed [facility] Pneumococcal 13 Conjugate, PCV13 (Prevnar 13) 2015-06-04 00:00:00 Completed [facility] Influenza Virus Vaccine Quad IM 3+ YRS 2015-06-04 00:00:00 Completed [facility] Pneumococcal 13 Conjugate, PCV13 (Prevnar 13) 2015-06-04 00:00:00 Completed [facility] Influenza Virus Vaccine Quad IM 3+ YRS 2015-06-04 00:00:00 Completed [facility] Pneumococcal 13 Conjugate, PCV13 (Prevnar 13) 2015-06-04 00:00:00 Completed [facility] Hep B, Adol or Pedi Dosage 2014-03-25 00:00:00 Completed [facility] Hep B, Adol or Pedi Dosage 2014-03-25 00:00:00 Completed [facility] Hep B, Adol or Pedi Dosage 2014-03-25 00:00:00 Completed [facility] Hep B, Adol or Pedi Dosage 2014-03-25 00:00:00 Completed [facility] Hep B, Adol or Pedi Dosage 2014-03-25 00:00:00 Completed [facility] Hep B, Adol or Pedi Dosage 2014-03-25 00:00:00 Completed [facility] Hep B, Adol or Pedi Dosage 2014-03-25 00:00:00 Completed [facility] Hep B, Adol or Pedi Dosage 2014-03-25 00:00:00 Completed [facility] Hep B, Adol or Pedi Dosage 2014-03-25 00:00:00 Completed [facility] Hep B, Adol or Pedi Dosage 2014-03-25 00:00:00 Completed [facility] Hep B, Adol or Pedi Dosage 2014-03-25 00:00:00 Completed [facility] Hep B, Adol or Pedi Dosage 2014-03-25 00:00:00 Completed [facility] Hep B, Adol or Pedi Dosage 2014-03-25 00:00:00 Completed [facility] Hep B, Adol or Pedi Dosage 2014-03-25 00:00:00 Completed [facility] Hep B, Adol or Pedi Dosage 2014-03-25 00:00:00 Completed [facility] Hep B, Adol or Pedi Dosage 2014-03-25 00:00:00 Completed [facility] Hep B, Adol or Pedi Dosage 2014-03-25 00:00:00 Completed [facility] Hep B, Adol or Pedi Dosage 2014-03-25 00:00:00 Completed [facility] Hep B, Adol or Pedi Dosage 2014-03-25 00:00:00 Completed [facility] Hep B, Adol or Pedi Dosage 2014-03-25 00:00:00 Completed [facility] Hep B, Adol or Pedi Dosage 2014-03-25 00:00:00 Completed [facility] Hep B, Adol or Pedi Dosage 2014-03-25 00:00:00 Completed [facility] Hep B, Adol or Pedi Dosage 2014-03-25 00:00:00 Completed [facility] Hep B, Adol or Pedi Dosage 2014-03-25 00:00:00 Completed [facility] Hep B, Adol or Pedi Dosage 2014-03-25 00:00:00 Completed [facility] Hep B, Adol or Pedi Dosage 2014-03-25 00:00:00 Completed [facility] Hep B, Adol or Pedi Dosage 2014-03-25 00:00:00 Completed [facility] Hep B, Adol or Pedi Dosage 2014-03-25 00:00:00 Completed [facility] Hep B, Adol or Pedi Dosage 2014-03-25 00:00:00 Completed [facility] Hep B, Adol or Pedi Dosage 2014-03-25 00:00:00 Completed [facility] Hep B, Adol or Pedi Dosage 2014-03-25 00:00:00 Completed [facility] Hep B, Adol or Pedi Dosage 2014-03-25 00:00:00 Completed [facility] Hep B, Adol or Pedi Dosage 2014-03-25 00:00:00 Completed [facility] Hep B, Adol or Pedi Dosage 2014-03-25 00:00:00 Completed [facility] Hep B, Adol or Pedi Dosage 2014-03-25 00:00:00 Completed [facility] Hep B, Adol or Pedi Dosage 2014-03-25 00:00:00 Completed [facility] Hep B, Adol or Pedi Dosage 2014-03-25 00:00:00 Completed [facility] Hep B, Adol or Pedi Dosage 2014-03-25 00:00:00 Completed [facility] Hep B, Adol or Pedi Dosage 2014-03-25 00:00:00 Completed [facility] Hep B, Adol or Pedi Dosage 2014-03-25 00:00:00 Completed [facility] Hep B, Adol or Pedi Dosage 2014-03-25 00:00:00 Completed [facility] Hep B, Adol or Pedi Dosage 2014-03-25 00:00:00 Completed [facility] Hep B, Adol or Pedi Dosage 2014-03-25 00:00:00 Completed [facility] Hep B, Adol or Pedi Dosage 2014-03-25 00:00:00 Completed [facility] Hep B, Adol or Pedi Dosage 2013-12-12 00:00:00 Completed [facility] Hep B, Adol or Pedi Dosage 2013-12-12 00:00:00 Completed [facility] Hep B, Adol or Pedi Dosage 2013-12-12 00:00:00 Completed [facility] Hep B, Adol or Pedi Dosage 2013-12-12 00:00:00 Completed [facility] Hep B, Adol or Pedi Dosage 2013-12-12 00:00:00 Completed [facility] Hep B, Adol or Pedi Dosage 2013-12-12 00:00:00 Completed [facility] Hep B, Adol or Pedi Dosage 2013-12-12 00:00:00 Completed [facility] Hep B, Adol or Pedi Dosage 2013-12-12 00:00:00 Completed [facility] Hep B, Adol or Pedi Dosage 2013-12-12 00:00:00 Completed [facility] Hep B, Adol or Pedi Dosage 2013-12-12 00:00:00 Completed [facility] Hep B, Adol or Pedi Dosage 2013-12-12 00:00:00 Completed [facility] Hep B, Adol or Pedi Dosage 2013-12-12 00:00:00 Completed [facility] Hep B, Adol or Pedi Dosage 2013-12-12 00:00:00 Completed [facility] Hep B, Adol or Pedi Dosage 2013-12-12 00:00:00 Completed [facility] Hep B, Adol or Pedi Dosage 2013-12-12 00:00:00 Completed [facility] Hep B, Adol or Pedi Dosage 2013-12-12 00:00:00 Completed [facility] Hep B, Adol or Pedi Dosage 2013-12-12 00:00:00 Completed [facility] Hep B, Adol or Pedi Dosage 2013-12-12 00:00:00 Completed [facility] Hep B, Adol or Pedi Dosage 2013-12-12 00:00:00 Completed [facility] Hep B, Adol or Pedi Dosage 2013-12-12 00:00:00 Completed [facility] Hep B, Adol or Pedi Dosage 2013-12-12 00:00:00 Completed [facility] Hep B, Adol or Pedi Dosage 2013-12-12 00:00:00 Completed [facility] Hep B, Adol or Pedi Dosage 2013-12-12 00:00:00 Completed [facility] Hep B, Adol or Pedi Dosage 2013-12-12 00:00:00 Completed [facility] Hep B, Adol or Pedi Dosage 2013-12-12 00:00:00 Completed [facility] Hep B, Adol or Pedi Dosage 2013-12-12 00:00:00 Completed [facility] Hep B, Adol or Pedi Dosage 2013-12-12 00:00:00 Completed [facility] Hep B, Adol or Pedi Dosage 2013-12-12 00:00:00 Completed [facility] Hep B, Adol or Pedi Dosage 2013-12-12 00:00:00 Completed [facility] Hep B, Adol or Pedi Dosage 2013-12-12 00:00:00 Completed [facility] Hep B, Adol or Pedi Dosage 2013-12-12 00:00:00 Completed [facility] Hep B, Adol or Pedi Dosage 2013-12-12 00:00:00 Completed [facility] Hep B, Adol or Pedi Dosage 2013-12-12 00:00:00 Completed [facility] Hep B, Adol or Pedi Dosage 2013-12-12 00:00:00 Completed [facility] Hep B, Adol or Pedi Dosage 2013-12-12 00:00:00 Completed [facility] Hep B, Adol or Pedi Dosage 2013-12-12 00:00:00 Completed [facility] Hep B, Adol or Pedi Dosage 2013-12-12 00:00:00 Completed [facility] Hep B, Adol or Pedi Dosage 2013-12-12 00:00:00 Completed [facility] Hep B, Adol or Pedi Dosage 2013-12-12 00:00:00 Completed [facility] Hep B, Adol or Pedi Dosage 2013-12-12 00:00:00 Completed [facility] Hep B, Adol or Pedi Dosage 2013-12-12 00:00:00 Completed [facility] Hep B, Adol or Pedi Dosage 2013-12-12 00:00:00 Completed [facility] Hep B, Adol or Pedi Dosage 2013-12-12 00:00:00 Completed [facility] Hep B, Adol or Pedi Dosage 2013-12-12 00:00:00 Completed [facility] Influenza Virus Vaccine (3+ yrs) 2013-04-18 00:00:00 Completed [facility] Influenza Virus Vaccine (3+ yrs) 2013-04-18 00:00:00 Completed [facility] Influenza Virus Vaccine (3+ yrs) 2013-04-18 00:00:00 Completed [facility] Influenza Virus Vaccine (3+ yrs) 2013-04-18 00:00:00 Completed [facility] Influenza Virus Vaccine (3+ yrs) 2013-04-18 00:00:00 Completed [facility] Influenza Virus Vaccine (3+ yrs) 2013-04-18 00:00:00 Completed [facility] Influenza Virus Vaccine (3+ yrs) 2013-04-18 00:00:00 Completed [facility] Influenza Virus Vaccine (3+ yrs) 2013-04-18 00:00:00 Completed [facility] Influenza Virus Vaccine (3+ yrs) 2013-04-18 00:00:00 Completed [facility] Influenza Virus Vaccine (3+ yrs) 2013-04-18 00:00:00 Completed [facility] Influenza Virus Vaccine (3+ yrs) 2013-04-18 00:00:00 Completed [facility] Influenza Virus Vaccine (3+ yrs) 2013-04-18 00:00:00 Completed [facility] Influenza Virus Vaccine (3+ yrs) 2013-04-18 00:00:00 Completed [facility] Influenza Virus Vaccine (3+ yrs) 2013-04-18 00:00:00 Completed [facility] Influenza Virus Vaccine (3+ yrs) 2013-04-18 00:00:00 Completed [facility] Influenza Virus Vaccine (3+ yrs) 2013-04-18 00:00:00 Completed [facility] Influenza Virus Vaccine (3+ yrs) 2013-04-18 00:00:00 Completed [facility] Influenza Virus Vaccine (3+ yrs) 2013-04-18 00:00:00 Completed [facility] Influenza Virus Vaccine (3+ yrs) 2013-04-18 00:00:00 Completed [facility] Influenza Virus Vaccine (3+ yrs) 2013-04-18 00:00:00 Completed [facility] Influenza Virus Vaccine (3+ yrs) 2013-04-18 00:00:00 Completed [facility] Influenza Virus Vaccine (3+ yrs) 2013-04-18 00:00:00 Completed [facility] Influenza Virus Vaccine (3+ yrs) 2013-04-18 00:00:00 Completed [facility] Influenza Virus Vaccine (3+ yrs) 2013-04-18 00:00:00 Completed [facility] Influenza Virus Vaccine (3+ yrs) 2013-04-18 00:00:00 Completed [facility] Influenza Virus Vaccine (3+ yrs) 2013-04-18 00:00:00 Completed [facility] Influenza Virus Vaccine (3+ yrs) 2013-04-18 00:00:00 Completed [facility] Influenza Virus Vaccine (3+ yrs) 2013-04-18 00:00:00 Completed [facility] Influenza Virus Vaccine (3+ yrs) 2013-04-18 00:00:00 Completed [facility] Influenza Virus Vaccine (3+ yrs) 2013-04-18 00:00:00 Completed [facility] Influenza Virus Vaccine (3+ yrs) 2013-04-18 00:00:00 Completed [facility] Influenza, split virus, trivalent, preservative (3+ Yrs) (Afluria) 2013-04-18 00:00:00 Completed [facility] Influenza Virus Vaccine (3+ yrs) 2013-04-18 00:00:00 Completed [facility] Influenza Virus Vaccine (3+ yrs) 2013-04-18 00:00:00 Completed [facility] Influenza Virus Vaccine (3+ yrs) 2013-04-18 00:00:00 Completed [facility] Influenza Virus Vaccine (3+ yrs) 2013-04-18 00:00:00 Completed [facility] Influenza Virus Vaccine (3+ yrs) 2013-04-18 00:00:00 Completed [facility] Influenza Virus Vaccine (3+ yrs) 2013-04-18 00:00:00 Completed [facility] Influenza Virus Vaccine (3+ yrs) 2013-04-18 00:00:00 Completed [facility] Influenza Virus Vaccine (3+ yrs) 2013-04-18 00:00:00 Completed [facility] Influenza Virus Vaccine (3+ yrs) 2013-04-18 00:00:00 Completed [facility] Influenza Virus Vaccine (3+ yrs) 2013-04-18 00:00:00 Completed [facility] Influenza Virus Vaccine (3+ yrs) 2013-04-18 00:00:00 Completed [facility] Influenza Virus Vaccine (3+ yrs) 2013-04-18 00:00:00 Completed [facility] Influenza Virus Vaccine 2012-06-14 00:00:00 Completed [facility] Influenza Virus Vaccine 2012-06-14 00:00:00 Completed [facility] Influenza Virus Vaccine 2012-06-14 00:00:00 Completed [facility] Influenza Virus Vaccine 2012-06-14 00:00:00 Completed [facility] Influenza Virus Vaccine 2012-06-14 00:00:00 Completed [facility] Influenza Virus Vaccine 2012-06-14 00:00:00 Completed [facility] Influenza Virus Vaccine 2012-06-14 00:00:00 Completed [facility] Influenza Virus Vaccine 2012-06-14 00:00:00 Completed [facility] Influenza Virus Vaccine 2012-06-14 00:00:00 Completed [facility] Influenza Virus Vaccine 2012-06-14 00:00:00 Completed [facility] Influenza Virus Vaccine 2012-06-14 00:00:00 Completed [facility] Influenza Virus Vaccine 2012-06-14 00:00:00 Completed [facility] Influenza Virus Vaccine 2012-06-14 00:00:00 Completed [facility] Influenza Virus Vaccine 2012-06-14 00:00:00 Completed [facility] Influenza Virus Vaccine 2012-06-14 00:00:00 Completed [facility] Influenza Virus Vaccine 2012-06-14 00:00:00 Completed [facility] Influenza Virus Vaccine 2012-06-14 00:00:00 Completed [facility] Influenza Virus Vaccine 2012-06-14 00:00:00 Completed [facility] Influenza Virus Vaccine 2012-06-14 00:00:00 Completed [facility] Influenza Virus Vaccine 2012-06-14 00:00:00 Completed [facility] Influenza Virus Vaccine 2012-06-14 00:00:00 Completed [facility] Influenza Virus Vaccine 2012-06-14 00:00:00 Completed [facility] Influenza Virus Vaccine 2012-06-14 00:00:00 Completed [facility] Influenza Virus Vaccine 2012-06-14 00:00:00 Completed [facility] Influenza Virus Vaccine 2012-06-14 00:00:00 Completed [facility] Influenza Virus Vaccine 2012-06-14 00:00:00 Completed [facility] Influenza Virus Vaccine 2012-06-14 00:00:00 Completed [facility] Influenza Virus Vaccine 2012-06-14 00:00:00 Completed [facility] Influenza Virus Vaccine 2012-06-14 00:00:00 Completed [facility] Influenza Virus Vaccine 2012-06-14 00:00:00 Completed [facility] Influenza Virus Vaccine 2012-06-14 00:00:00 Completed [facility] Influenza Virus Vaccine 2012-06-14 00:00:00 Completed [facility] Influenza Virus Vaccine 2012-06-14 00:00:00 Completed [facility] Influenza Virus Vaccine 2012-06-14 00:00:00 Completed [facility] Influenza Virus Vaccine 2012-06-14 00:00:00 Completed [facility] Influenza Virus Vaccine 2012-06-14 00:00:00 Completed [facility] Influenza Virus Vaccine 2012-06-14 00:00:00 Completed [facility] Influenza Virus Vaccine 2012-06-14 00:00:00 Completed [facility] Influenza Virus Vaccine 2012-06-14 00:00:00 Completed [facility] Influenza Virus Vaccine 2012-06-14 00:00:00 Completed [facility] Influenza Virus Vaccine 2012-06-14 00:00:00 Completed [facility] Influenza Virus Vaccine 2012-06-14 00:00:00 Completed [facility] Influenza Virus Vaccine 2012-06-14 00:00:00 Completed [facility] Influenza Virus Vaccine 2012-06-14 00:00:00 Completed [facility] PPD (TB) 2012-02-02 00:00:00 Completed [facility] PPD (TB) 2012-02-02 00:00:00 Completed [facility] PPD (TB) 2012-02-02 00:00:00 Completed [facility] PPD (TB) 2012-02-02 00:00:00 Completed [facility] PPD (TB) 2012-02-02 00:00:00 Completed [facility] PPD (TB) 2012-02-02 00:00:00 Completed [facility] PPD (TB) 2012-02-02 00:00:00 Completed [facility] PPD (TB) 2012-02-02 00:00:00 Completed [facility] PPD (TB) 2012-02-02 00:00:00 Completed [facility] PPD (TB) 2012-02-02 00:00:00 Completed [facility] PPD (TB) 2012-02-02 00:00:00 Completed [facility] PPD (TB) 2012-02-02 00:00:00 Completed [facility] PPD (TB) 2012-02-02 00:00:00 Completed [facility] PPD (TB) 2012-02-02 00:00:00 Completed [facility] PPD (TB) 2012-02-02 00:00:00 Completed [facility] PPD (TB) 2012-02-02 00:00:00 Completed [facility] PPD (TB) 2012-02-02 00:00:00 Completed [facility] PPD (TB) 2012-02-02 00:00:00 Completed [facility] PPD (TB) 2012-02-02 00:00:00 Completed [facility] PPD (TB) 2012-02-02 00:00:00 Completed [facility] PPD (TB) 2012-02-02 00:00:00 Completed [facility] PPD (TB) 2012-02-02 00:00:00 Completed [facility] PPD (TB) 2012-02-02 00:00:00 Completed [facility] PPD (TB) 2012-02-02 00:00:00 Completed [facility] PPD (TB) 2012-02-02 00:00:00 Completed [facility] PPD (TB) 2012-02-02 00:00:00 Completed [facility] PPD (TB) 2012-02-02 00:00:00 Completed [facility] PPD (TB) 2012-02-02 00:00:00 Completed [facility] PPD (TB) 2012-02-02 00:00:00 Completed [facility] PPD (TB) 2012-02-02 00:00:00 Completed [facility] PPD (TB) 2012-02-02 00:00:00 Completed [facility] PPD (TB) 2012-02-02 00:00:00 Completed [facility] PPD (TB) 2012-02-02 00:00:00 Completed [facility] PPD (TB) 2012-02-02 00:00:00 Completed [facility] PPD (TB) 2012-02-02 00:00:00 Completed [facility] PPD (TB) 2012-02-02 00:00:00 Completed [facility] PPD (TB) 2012-02-02 00:00:00 Completed [facility] PPD (TB) 2012-02-02 00:00:00 Completed [facility] PPD (TB) 2012-02-02 00:00:00 Completed [facility] PPD (TB) 2012-02-02 00:00:00 Completed [facility] PPD (TB) 2012-02-02 00:00:00 Completed [facility] PPD (TB) 2012-02-02 00:00:00 Completed [facility] PPD (TB) 2012-02-02 00:00:00 Completed [facility] PPD (TB) 2012-02-02 00:00:00 Completed [facility] PPD (TB) 2011-11-03 00:00:00 Completed [facility] Hep B, Adol or Pedi Dosage 2011-11-03 00:00:00 Completed [facility] PPD (TB) 2011-11-03 00:00:00 Completed [facility] Hep B, Adol or Pedi Dosage 2011-11-03 00:00:00 Completed [facility] PPD (TB) 2011-11-03 00:00:00 Completed [facility] Hep B, Adol or Pedi Dosage 2011-11-03 00:00:00 Completed [facility] PPD (TB) 2011-11-03 00:00:00 Completed [facility] Hep B, Adol or Pedi Dosage 2011-11-03 00:00:00 Completed [facility] PPD (TB) 2011-11-03 00:00:00 Completed [facility] Hep B, Adol or Pedi Dosage 2011-11-03 00:00:00 Completed [facility] PPD (TB) 2011-11-03 00:00:00 Completed [facility] Hep B, Adol or Pedi Dosage 2011-11-03 00:00:00 Completed [facility] PPD (TB) 2011-11-03 00:00:00 Completed [facility] Hep B, Adol or Pedi Dosage 2011-11-03 00:00:00 Completed [facility] PPD (TB) 2011-11-03 00:00:00 Completed [facility] Hep B, Adol or Pedi Dosage 2011-11-03 00:00:00 Completed [facility] PPD (TB) 2011-11-03 00:00:00 Completed [facility] Hep B, Adol or Pedi Dosage 2011-11-03 00:00:00 Completed [facility] PPD (TB) 2011-11-03 00:00:00 Completed [facility] Hep B, Adol or Pedi Dosage 2011-11-03 00:00:00 Completed [facility] PPD (TB) 2011-11-03 00:00:00 Completed [facility] Hep B, Adol or Pedi Dosage 2011-11-03 00:00:00 Completed [facility] PPD (TB) 2011-11-03 00:00:00 Completed [facility] Hep B, Adol or Pedi Dosage 2011-11-03 00:00:00 Completed [facility] PPD (TB) 2011-11-03 00:00:00 Completed [facility] Hep B, Adol or Pedi Dosage 2011-11-03 00:00:00 Completed [facility] PPD (TB) 2011-11-03 00:00:00 Completed [facility] Hep B, Adol or Pedi Dosage 2011-11-03 00:00:00 Completed [facility] PPD (TB) 2011-11-03 00:00:00 Completed [facility] Hep B, Adol or Pedi Dosage 2011-11-03 00:00:00 Completed [facility] PPD (TB) 2011-11-03 00:00:00 Completed [facility] Hep B, Adol or Pedi Dosage 2011-11-03 00:00:00 Completed [facility] PPD (TB) 2011-11-03 00:00:00 Completed [facility] Hep B, Adol or Pedi Dosage 2011-11-03 00:00:00 Completed [facility] PPD (TB) 2011-11-03 00:00:00 Completed [facility] Hep B, Adol or Pedi Dosage 2011-11-03 00:00:00 Completed [facility] PPD (TB) 2011-11-03 00:00:00 Completed [facility] Hep B, Adol or Pedi Dosage 2011-11-03 00:00:00 Completed [facility] PPD (TB) 2011-11-03 00:00:00 Completed [facility] Hep B, Adol or Pedi Dosage 2011-11-03 00:00:00 Completed [facility] PPD (TB) 2011-11-03 00:00:00 Completed [facility] Hep B, Adol or Pedi Dosage 2011-11-03 00:00:00 Completed [facility] PPD (TB) 2011-11-03 00:00:00 Completed [facility] Hep B, Adol or Pedi Dosage 2011-11-03 00:00:00 Completed [facility] PPD (TB) 2011-11-03 00:00:00 Completed [facility] Hep B, Adol or Pedi Dosage 2011-11-03 00:00:00 Completed [facility] PPD (TB) 2011-11-03 00:00:00 Completed [facility] Hep B, Adol or Pedi Dosage 2011-11-03 00:00:00 Completed [facility] PPD (TB) 2011-11-03 00:00:00 Completed [facility] Hep B, Adol or Pedi Dosage 2011-11-03 00:00:00 Completed [facility] PPD (TB) 2011-11-03 00:00:00 Completed [facility] Hep B, Adol or Pedi Dosage 2011-11-03 00:00:00 Completed [facility] PPD (TB) 2011-11-03 00:00:00 Completed [facility] Hep B, Adol or Pedi Dosage 2011-11-03 00:00:00 Completed [facility] PPD (TB) 2011-11-03 00:00:00 Completed [facility] Hep B, Adol or Pedi Dosage 2011-11-03 00:00:00 Completed [facility] PPD (TB) 2011-11-03 00:00:00 Completed [facility] Hep B, Adol or Pedi Dosage 2011-11-03 00:00:00 Completed [facility] PPD (TB) 2011-11-03 00:00:00 Completed [facility] Hep B, Adol or Pedi Dosage 2011-11-03 00:00:00 Completed [facility] PPD (TB) 2011-11-03 00:00:00 Completed [facility] Hep B, Adol or Pedi Dosage 2011-11-03 00:00:00 Completed [facility] PPD (TB) 2011-11-03 00:00:00 Completed [facility] Hep B, Adol or Pedi Dosage 2011-11-03 00:00:00 Completed [facility] PPD (TB) 2011-11-03 00:00:00 Completed [facility] Hep B, Adol or Pedi Dosage 2011-11-03 00:00:00 Completed [facility] PPD (TB) 2011-11-03 00:00:00 Completed [facility] Hep B, Adol or Pedi Dosage 2011-11-03 00:00:00 Completed [facility] PPD (TB) 2011-11-03 00:00:00 Completed [facility] Hep B, Adol or Pedi Dosage 2011-11-03 00:00:00 Completed [facility] PPD (TB) 2011-11-03 00:00:00 Completed [facility] Hep B, Adol or Pedi Dosage 2011-11-03 00:00:00 Completed [facility] PPD (TB) 2011-11-03 00:00:00 Completed [facility] Hep B, Adol or Pedi Dosage 2011-11-03 00:00:00 Completed [facility] PPD (TB) 2011-11-03 00:00:00 Completed [facility] Hep B, Adol or Pedi Dosage 2011-11-03 00:00:00 Completed [facility] PPD (TB) 2011-11-03 00:00:00 Completed [facility] Hep B, Adol or Pedi Dosage 2011-11-03 00:00:00 Completed [facility] PPD (TB) 2011-11-03 00:00:00 Completed [facility] Hep B, Adol or Pedi Dosage 2011-11-03 00:00:00 Completed [facility] PPD (TB) 2011-11-03 00:00:00 Completed [facility] Hep B, Adol or Pedi Dosage 2011-11-03 00:00:00 Completed [facility] PPD (TB) 2011-11-03 00:00:00 Completed [facility] Hep B, Adol or Pedi Dosage 2011-11-03 00:00:00 Completed [facility] PPD (TB) 2011-11-03 00:00:00 Completed [facility] Hep B, Adol or Pedi Dosage 2011-11-03 00:00:00 Completed [facility] PPD (TB) 2011-11-03 00:00:00 Completed [facility] Hep B, Adol or Pedi Dosage 2011-11-03 00:00:00 Completed [facility] Influenza Virus Vaccine 2011-06-23 00:00:00 Completed [facility] Influenza Virus Vaccine 2011-06-23 00:00:00 Completed [facility] Influenza Virus Vaccine 2011-06-23 00:00:00 Completed [facility] Influenza Virus Vaccine 2011-06-23 00:00:00 Completed [facility] Influenza Virus Vaccine 2011-06-23 00:00:00 Completed [facility] Influenza Virus Vaccine 2011-06-23 00:00:00 Completed [facility] Influenza Virus Vaccine 2011-06-23 00:00:00 Completed [facility] Influenza Virus Vaccine 2011-06-23 00:00:00 Completed [facility] Influenza Virus Vaccine 2011-06-23 00:00:00 Completed [facility] Influenza Virus Vaccine 2011-06-23 00:00:00 Completed [facility] Influenza Virus Vaccine 2011-06-23 00:00:00 Completed [facility] Influenza Virus Vaccine 2011-06-23 00:00:00 Completed [facility] Influenza Virus Vaccine 2011-06-23 00:00:00 Completed [facility] Influenza Virus Vaccine 2011-06-23 00:00:00 Completed [facility] Influenza Virus Vaccine 2011-06-23 00:00:00 Completed [facility] Influenza Virus Vaccine 2011-06-23 00:00:00 Completed [facility] Influenza Virus Vaccine 2011-06-23 00:00:00 Completed [facility] Influenza Virus Vaccine 2011-06-23 00:00:00 Completed [facility] Influenza Virus Vaccine 2011-06-23 00:00:00 Completed [facility] Influenza Virus Vaccine 2011-06-23 00:00:00 Completed [facility] Influenza Virus Vaccine 2011-06-23 00:00:00 Completed [facility] Influenza Virus Vaccine 2011-06-23 00:00:00 Completed [facility] Influenza Virus Vaccine 2011-06-23 00:00:00 Completed [facility] Influenza Virus Vaccine 2011-06-23 00:00:00 Completed [facility] Influenza Virus Vaccine 2011-06-23 00:00:00 Completed [facility] Influenza Virus Vaccine 2011-06-23 00:00:00 Completed [facility] Influenza Virus Vaccine 2011-06-23 00:00:00 Completed [facility] Influenza Virus Vaccine 2011-06-23 00:00:00 Completed [facility] Influenza Virus Vaccine 2011-06-23 00:00:00 Completed [facility] Influenza Virus Vaccine 2011-06-23 00:00:00 Completed [facility] Influenza Virus Vaccine 2011-06-23 00:00:00 Completed [facility] Influenza Virus Vaccine 2011-06-23 00:00:00 Completed [facility] Influenza Virus Vaccine 2011-06-23 00:00:00 Completed [facility] Influenza Virus Vaccine 2011-06-23 00:00:00 Completed [facility] Influenza Virus Vaccine 2011-06-23 00:00:00 Completed [facility] Influenza Virus Vaccine 2011-06-23 00:00:00 Completed [facility] Influenza Virus Vaccine 2011-06-23 00:00:00 Completed [facility] Influenza Virus Vaccine 2011-06-23 00:00:00 Completed [facility] Influenza Virus Vaccine 2011-06-23 00:00:00 Completed [facility] Influenza Virus Vaccine 2011-06-23 00:00:00 Completed [facility] Influenza Virus Vaccine 2011-06-23 00:00:00 Completed [facility] Influenza Virus Vaccine 2011-06-23 00:00:00 Completed [facility] Influenza Virus Vaccine 2011-06-23 00:00:00 Completed [facility] Influenza Virus Vaccine 2011-06-23 00:00:00 Completed [facility] Hep B, Adol or Pedi Dosage 2010-11-25 00:00:00 Completed [facility] HEPATITIS A 2010-11-25 00:00:00 Completed [facility] Hep B, Adol or Pedi Dosage 2010-11-25 00:00:00 Completed [facility] HEPATITIS A 2010-11-25 00:00:00 Completed [facility] Hep B, Adol or Pedi Dosage 2010-11-25 00:00:00 Completed [facility] HEPATITIS A 2010-11-25 00:00:00 Completed [facility] Hep B, Adol or Pedi Dosage 2010-11-25 00:00:00 Completed [facility] HEPATITIS A 2010-11-25 00:00:00 Completed [facility] Hep B, Adol or Pedi Dosage 2010-11-25 00:00:00 Completed [facility] HEPATITIS A 2010-11-25 00:00:00 Completed [facility] Hep B, Adol or Pedi Dosage 2010-11-25 00:00:00 Completed [facility] HEPATITIS A 2010-11-25 00:00:00 Completed [facility] Hep B, Adol or Pedi Dosage 2010-11-25 00:00:00 Completed [facility] HEPATITIS A 2010-11-25 00:00:00 Completed [facility] Hep B, Adol or Pedi Dosage 2010-11-25 00:00:00 Completed [facility] HEPATITIS A 2010-11-25 00:00:00 Completed [facility] Hep B, Adol or Pedi Dosage 2010-11-25 00:00:00 Completed [facility] HEPATITIS A 2010-11-25 00:00:00 Completed [facility] Hep B, Adol or Pedi Dosage 2010-11-25 00:00:00 Completed [facility] HEPATITIS A 2010-11-25 00:00:00 Completed [facility] Hep B, Adol or Pedi Dosage 2010-11-25 00:00:00 Completed [facility] HEPATITIS A 2010-11-25 00:00:00 Completed [facility] Hep B, Adol or Pedi Dosage 2010-11-25 00:00:00 Completed [facility] HEPATITIS A 2010-11-25 00:00:00 Completed [facility] Hep B, Adol or Pedi Dosage 2010-11-25 00:00:00 Completed [facility] HEPATITIS A 2010-11-25 00:00:00 Completed [facility] Hep B, Adol or Pedi Dosage 2010-11-25 00:00:00 Completed [facility] HEPATITIS A 2010-11-25 00:00:00 Completed [facility] Hep B, Adol or Pedi Dosage 2010-11-25 00:00:00 Completed [facility] HEPATITIS A 2010-11-25 00:00:00 Completed [facility] Hep B, Adol or Pedi Dosage 2010-11-25 00:00:00 Completed [facility] HEPATITIS A 2010-11-25 00:00:00 Completed [facility] Hep B, Adol or Pedi Dosage 2010-11-25 00:00:00 Completed [facility] HEPATITIS A 2010-11-25 00:00:00 Completed [facility] Hep B, Adol or Pedi Dosage 2010-11-25 00:00:00 Completed [facility] HEPATITIS A 2010-11-25 00:00:00 Completed [facility] Hep B, Adol or Pedi Dosage 2010-11-25 00:00:00 Completed [facility] HEPATITIS A 2010-11-25 00:00:00 Completed [facility] Hep B, Adol or Pedi Dosage 2010-11-25 00:00:00 Completed [facility] HEPATITIS A 2010-11-25 00:00:00 Completed [facility] Hep B, Adol or Pedi Dosage 2010-11-25 00:00:00 Completed [facility] HEPATITIS A 2010-11-25 00:00:00 Completed [facility] Hep B, Adol or Pedi Dosage 2010-11-25 00:00:00 Completed [facility] HEPATITIS A 2010-11-25 00:00:00 Completed [facility] Hep B, Adol or Pedi Dosage 2010-11-25 00:00:00 Completed [facility] HEPATITIS A 2010-11-25 00:00:00 Completed [facility] Hep B, Adol or Pedi Dosage 2010-11-25 00:00:00 Completed [facility] HEPATITIS A 2010-11-25 00:00:00 Completed [facility] Hep B, Adol or Pedi Dosage 2010-11-25 00:00:00 Completed [facility] HEPATITIS A 2010-11-25 00:00:00 Completed [facility] Hep B, Adol or Pedi Dosage 2010-11-25 00:00:00 Completed [facility] HEPATITIS A 2010-11-25 00:00:00 Completed [facility] Hep B, Adol or Pedi Dosage 2010-11-25 00:00:00 Completed [facility] HEPATITIS A 2010-11-25 00:00:00 Completed [facility] Hep B, Adol or Pedi Dosage 2010-11-25 00:00:00 Completed [facility] HEPATITIS A 2010-11-25 00:00:00 Completed [facility] Hep B, Adol or Pedi Dosage 2010-11-25 00:00:00 Completed [facility] HEPATITIS A 2010-11-25 00:00:00 Completed [facility] Hep B, Adol or Pedi Dosage 2010-11-25 00:00:00 Completed [facility] HEPATITIS A 2010-11-25 00:00:00 Completed [facility] Hep B, Adol or Pedi Dosage 2010-11-25 00:00:00 Completed [facility] HEPATITIS A 2010-11-25 00:00:00 Completed [facility] Hep B, Adol or Pedi Dosage 2010-11-25 00:00:00 Completed [facility] HEPATITIS A 2010-11-25 00:00:00 Completed [facility] Hep B, Adol or Pedi Dosage 2010-11-25 00:00:00 Completed [facility] HEPATITIS A 2010-11-25 00:00:00 Completed [facility] Hep B, Adol or Pedi Dosage 2010-11-25 00:00:00 Completed [facility] HEPATITIS A 2010-11-25 00:00:00 Completed [facility] Hep B, Adol or Pedi Dosage 2010-11-25 00:00:00 Completed [facility] HEPATITIS A 2010-11-25 00:00:00 Completed [facility] Hep B, Adol or Pedi Dosage 2010-11-25 00:00:00 Completed [facility] HEPATITIS A 2010-11-25 00:00:00 Completed [facility] Hep B, Adol or Pedi Dosage 2010-11-25 00:00:00 Completed [facility] HEPATITIS A 2010-11-25 00:00:00 Completed [facility] Hep B, Adol or Pedi Dosage 2010-11-25 00:00:00 Completed [facility] HEPATITIS A 2010-11-25 00:00:00 Completed [facility] Hep B, Adol or Pedi Dosage 2010-11-25 00:00:00 Completed [facility] HEPATITIS A 2010-11-25 00:00:00 Completed [facility] Hep B, Adol or Pedi Dosage 2010-11-25 00:00:00 Completed [facility] HEPATITIS A 2010-11-25 00:00:00 Completed [facility] Hep B, Adol or Pedi Dosage 2010-11-25 00:00:00 Completed [facility] HEPATITIS A 2010-11-25 00:00:00 Completed [facility] Hep B, Adol or Pedi Dosage 2010-11-25 00:00:00 Completed [facility] HEPATITIS A 2010-11-25 00:00:00 Completed [facility] Hep B, Adol or Pedi Dosage 2010-11-25 00:00:00 Completed [facility] HEPATITIS A 2010-11-25 00:00:00 Completed [facility] Hep B, Adol or Pedi Dosage 2010-11-25 00:00:00 Completed [facility] HEPATITIS A 2010-11-25 00:00:00 Completed [facility] Hep B, Adol or Pedi Dosage 2010-06-03 00:00:00 Completed [facility] Influenza Virus Vaccine 2010-06-03 00:00:00 Completed [facility] Hep B, Adol or Pedi Dosage 2010-06-03 00:00:00 Completed [facility] Influenza Virus Vaccine 2010-06-03 00:00:00 Completed [facility] Hep B, Adol or Pedi Dosage 2010-06-03 00:00:00 Completed [facility] Influenza Virus Vaccine 2010-06-03 00:00:00 Completed [facility] Hep B, Adol or Pedi Dosage 2010-06-03 00:00:00 Completed [facility] Influenza Virus Vaccine 2010-06-03 00:00:00 Completed [facility] Hep B, Adol or Pedi Dosage 2010-06-03 00:00:00 Completed [facility] Influenza Virus Vaccine 2010-06-03 00:00:00 Completed [facility] Hep B, Adol or Pedi Dosage 2010-06-03 00:00:00 Completed [facility] Influenza Virus Vaccine 2010-06-03 00:00:00 Completed [facility] Hep B, Adol or Pedi Dosage 2010-06-03 00:00:00 Completed [facility] Influenza Virus Vaccine 2010-06-03 00:00:00 Completed [facility] Hep B, Adol or Pedi Dosage 2010-06-03 00:00:00 Completed [facility] Influenza Virus Vaccine 2010-06-03 00:00:00 Completed [facility] Hep B, Adol or Pedi Dosage 2010-06-03 00:00:00 Completed [facility] Influenza Virus Vaccine 2010-06-03 00:00:00 Completed [facility] Hep B, Adol or Pedi Dosage 2010-06-03 00:00:00 Completed [facility] Influenza Virus Vaccine 2010-06-03 00:00:00 Completed [facility] Hep B, Adol or Pedi Dosage 2010-06-03 00:00:00 Completed [facility] Influenza Virus Vaccine 2010-06-03 00:00:00 Completed [facility] Hep B, Adol or Pedi Dosage 2010-06-03 00:00:00 Completed [facility] Influenza Virus Vaccine 2010-06-03 00:00:00 Completed [facility] Hep B, Adol or Pedi Dosage 2010-06-03 00:00:00 Completed [facility] Influenza Virus Vaccine 2010-06-03 00:00:00 Completed [facility] Hep B, Adol or Pedi Dosage 2010-06-03 00:00:00 Completed [facility] Influenza Virus Vaccine 2010-06-03 00:00:00 Completed [facility] Hep B, Adol or Pedi Dosage 2010-06-03 00:00:00 Completed [facility] Influenza Virus Vaccine 2010-06-03 00:00:00 Completed [facility] Hep B, Adol or Pedi Dosage 2010-06-03 00:00:00 Completed [facility] Influenza Virus Vaccine 2010-06-03 00:00:00 Completed [facility] Hep B, Adol or Pedi Dosage 2010-06-03 00:00:00 Completed [facility] Influenza Virus Vaccine 2010-06-03 00:00:00 Completed [facility] Hep B, Adol or Pedi Dosage 2010-06-03 00:00:00 Completed [facility] Influenza Virus Vaccine 2010-06-03 00:00:00 Completed [facility] Hep B, Adol or Pedi Dosage 2010-06-03 00:00:00 Completed [facility] Influenza Virus Vaccine 2010-06-03 00:00:00 Completed [facility] Hep B, Adol or Pedi Dosage 2010-06-03 00:00:00 Completed [facility] Influenza Virus Vaccine 2010-06-03 00:00:00 Completed [facility] Hep B, Adol or Pedi Dosage 2010-06-03 00:00:00 Completed [facility] Influenza Virus Vaccine 2010-06-03 00:00:00 Completed [facility] Hep B, Adol or Pedi Dosage 2010-06-03 00:00:00 Completed [facility] Influenza Virus Vaccine 2010-06-03 00:00:00 Completed [facility] Hep B, Adol or Pedi Dosage 2010-06-03 00:00:00 Completed [facility] Influenza Virus Vaccine 2010-06-03 00:00:00 Completed [facility] Hep B, Adol or Pedi Dosage 2010-06-03 00:00:00 Completed [facility] Influenza Virus Vaccine 2010-06-03 00:00:00 Completed [facility] Hep B, Adol or Pedi Dosage 2010-06-03 00:00:00 Completed [facility] Influenza Virus Vaccine 2010-06-03 00:00:00 Completed [facility] Hep B, Adol or Pedi Dosage 2010-06-03 00:00:00 Completed [facility] Influenza Virus Vaccine 2010-06-03 00:00:00 Completed [facility] Hep B, Adol or Pedi Dosage 2010-06-03 00:00:00 Completed [facility] Influenza Virus Vaccine 2010-06-03 00:00:00 Completed [facility] Hep B, Adol or Pedi Dosage 2010-06-03 00:00:00 Completed [facility] Influenza Virus Vaccine 2010-06-03 00:00:00 Completed [facility] Hep B, Adol or Pedi Dosage 2010-06-03 00:00:00 Completed [facility] Influenza Virus Vaccine 2010-06-03 00:00:00 Completed [facility] Hep B, Adol or Pedi Dosage 2010-06-03 00:00:00 Completed [facility] Influenza Virus Vaccine 2010-06-03 00:00:00 Completed [facility] Hep B, Adol or Pedi Dosage 2010-06-03 00:00:00 Completed [facility] Influenza Virus Vaccine 2010-06-03 00:00:00 Completed [facility] Hep B, Adol or Pedi Dosage 2010-06-03 00:00:00 Completed [facility] Influenza Virus Vaccine 2010-06-03 00:00:00 Completed [facility] Hep B, Adol or Pedi Dosage 2010-06-03 00:00:00 Completed [facility] Influenza Virus Vaccine 2010-06-03 00:00:00 Completed [facility] Hep B, Adol or Pedi Dosage 2010-06-03 00:00:00 Completed [facility] Influenza Virus Vaccine 2010-06-03 00:00:00 Completed [facility] Hep B, Adol or Pedi Dosage 2010-06-03 00:00:00 Completed [facility] Influenza Virus Vaccine 2010-06-03 00:00:00 Completed [facility] Hep B, Adol or Pedi Dosage 2010-06-03 00:00:00 Completed [facility] Influenza Virus Vaccine 2010-06-03 00:00:00 Completed [facility] Hep B, Adol or Pedi Dosage 2010-06-03 00:00:00 Completed [facility] Influenza Virus Vaccine 2010-06-03 00:00:00 Completed [facility] Hep B, Adol or Pedi Dosage 2010-06-03 00:00:00 Completed [facility] Influenza Virus Vaccine 2010-06-03 00:00:00 Completed [facility] Hep B, Adol or Pedi Dosage 2010-06-03 00:00:00 Completed [facility] Influenza Virus Vaccine 2010-06-03 00:00:00 Completed [facility] Hep B, Adol or Pedi Dosage 2010-06-03 00:00:00 Completed [facility] Influenza Virus Vaccine 2010-06-03 00:00:00 Completed [facility] Hep B, Adol or Pedi Dosage 2010-06-03 00:00:00 Completed [facility] Influenza Virus Vaccine 2010-06-03 00:00:00 Completed [facility] Hep B, Adol or Pedi Dosage 2010-06-03 00:00:00 Completed [facility] Influenza Virus Vaccine 2010-06-03 00:00:00 Completed [facility] Hep B, Adol or Pedi Dosage 2010-06-03 00:00:00 Completed [facility] Influenza Virus Vaccine 2010-06-03 00:00:00 Completed [facility] Hep B, Adol or Pedi Dosage 2010-06-03 00:00:00 Completed [facility] Influenza Virus Vaccine 2010-06-03 00:00:00 Completed [facility] PPD (TB) 2010-03-25 00:00:00 Completed [facility] Pneumococcal 7 Conjugate, PCV7 (Prevnar7) 2010-03-25 00:00:00 Completed [facility] TDAP (ADACEL) VACCINE 2010-03-25 00:00:00 Completed [facility] Twinrix (hep a/hep b) 2010-03-25 00:00:00 Completed [facility] PPD (TB) 2010-03-25 00:00:00 Completed [facility] Pneumococcal 7 Conjugate, PCV7 (Prevnar7) 2010-03-25 00:00:00 Completed [facility] TDAP (ADACEL) VACCINE 2010-03-25 00:00:00 Completed [facility] (hep a/hep b) 2010-03-25 00:00:00 Completed [facility] PPD (TB) 2010-03-25 00:00:00 Completed [facility] Pneumococcal 7 Conjugate, PCV7 (Prevnar7) 2010-03-25 00:00:00 Completed [facility] TDAP (ADACEL) VACCINE 2010-03-25 00:00:00 Completed [facility] (hep a/hep b) 2010-03-25 00:00:00 Completed [facility] PPD (TB) 2010-03-25 00:00:00 Completed [facility] Pneumococcal 7 Conjugate, PCV7 (Prevnar7) 2010-03-25 00:00:00 Completed [facility] TDAP (ADACEL) VACCINE 2010-03-25 00:00:00 Completed [facility] (hep a/hep b) 2010-03-25 00:00:00 Completed [facility] PPD (TB) 2010-03-25 00:00:00 Completed [facility] Pneumococcal 7 Conjugate, PCV7 (Prevnar7) 2010-03-25 00:00:00 Completed [facility] TDAP (ADACEL) VACCINE 2010-03-25 00:00:00 Completed [facility] (hep a/hep b) 2010-03-25 00:00:00 Completed [facility] PPD (TB) 2010-03-25 00:00:00 Completed [facility] Pneumococcal 7 Conjugate, PCV7 (Prevnar7) 2010-03-25 00:00:00 Completed [facility] TDAP (ADACEL) VACCINE 2010-03-25 00:00:00 Completed [facility] (hep a/hep b) 2010-03-25 00:00:00 Completed [facility] PPD (TB) 2010-03-25 00:00:00 Completed [facility] Pneumococcal 7 Conjugate, PCV7 (Prevnar7) 2010-03-25 00:00:00 Completed [facility] TDAP (ADACEL) VACCINE 2010-03-25 00:00:00 Completed [facility] (hep a/hep b) 2010-03-25 00:00:00 Completed [facility] PPD (TB) 2010-03-25 00:00:00 Completed [facility] Pneumococcal 7 Conjugate, PCV7 (Prevnar7) 2010-03-25 00:00:00 Completed [facility] TDAP (ADACEL) VACCINE 2010-03-25 00:00:00 Completed [facility] (hep a/hep b) 2010-03-25 00:00:00 Completed [facility] PPD (TB) 2010-03-25 00:00:00 Completed [facility] Pneumococcal 7 Conjugate, PCV7 (Prevnar7) 2010-03-25 00:00:00 Completed [facility] TDAP (ADACEL) VACCINE 2010-03-25 00:00:00 Completed [facility] (hep a/hep b) 2010-03-25 00:00:00 Completed [facility] PPD (TB) 2010-03-25 00:00:00 Completed [facility] Pneumococcal 7 Conjugate, PCV7 (Prevnar7) 2010-03-25 00:00:00 Completed [facility] TDAP (ADACEL) VACCINE 2010-03-25 00:00:00 Completed [facility] (hep a/hep b) 2010-03-25 00:00:00 Completed [facility] PPD (TB) 2010-03-25 00:00:00 Completed [facility] Pneumococcal 7 Conjugate, PCV7 (Prevnar7) 2010-03-25 00:00:00 Completed [facility] TDAP (ADACEL) VACCINE 2010-03-25 00:00:00 Completed [facility] (hep a/hep b) 2010-03-25 00:00:00 Completed [facility] PPD (TB) 2010-03-25 00:00:00 Completed [facility] Pneumococcal 7 Conjugate, PCV7 (Prevnar7) 2010-03-25 00:00:00 Completed [facility] TDAP (ADACEL) VACCINE 2010-03-25 00:00:00 Completed [facility] (hep a/hep b) 2010-03-25 00:00:00 Completed [facility] PPD (TB) 2010-03-25 00:00:00 Completed [facility] Pneumococcal 7 Conjugate, PCV7 (Prevnar7) 2010-03-25 00:00:00 Completed [facility] TDAP (ADACEL) VACCINE 2010-03-25 00:00:00 Completed [facility] (hep a/hep b) 2010-03-25 00:00:00 Completed [facility] PPD (TB) 2010-03-25 00:00:00 Completed [facility] Pneumococcal 7 Conjugate, PCV7 (Prevnar7) 2010-03-25 00:00:00 Completed [facility] TDAP (ADACEL) VACCINE 2010-03-25 00:00:00 Completed [facility] (hep a/hep b) 2010-03-25 00:00:00 Completed [facility] PPD (TB) 2010-03-25 00:00:00 Completed [facility] Pneumococcal 7 Conjugate, PCV7 (Prevnar7) 2010-03-25 00:00:00 Completed [facility] TDAP (ADACEL) VACCINE 2010-03-25 00:00:00 Completed [facility] (hep a/hep b) 2010-03-25 00:00:00 Completed [facility] PPD (TB) 2010-03-25 00:00:00 Completed [facility] Pneumococcal 7 Conjugate, PCV7 (Prevnar7) 2010-03-25 00:00:00 Completed [facility] TDAP (ADACEL) VACCINE 2010-03-25 00:00:00 Completed [facility] (hep a/hep b) 2010-03-25 00:00:00 Completed [facility] PPD (TB) 2010-03-25 00:00:00 Completed [facility] Pneumococcal 7 Conjugate, PCV7 (Prevnar7) 2010-03-25 00:00:00 Completed [facility] TDAP (ADACEL) VACCINE 2010-03-25 00:00:00 Completed [facility] (hep a/hep b) 2010-03-25 00:00:00 Completed [facility] PPD (TB) 2010-03-25 00:00:00 Completed [facility] Pneumococcal 7 Conjugate, PCV7 (Prevnar7) 2010-03-25 00:00:00 Completed [facility] TDAP (ADACEL) VACCINE 2010-03-25 00:00:00 Completed [facility] Twin[facility] (hep a/hep b) 2010-03-25 00:00:00 Completed [facility] PPD (TB) 2010-03-25 00:00:00 Completed [facility] Pneumococcal 7 Conjugate, PCV7 (Prevnar7) 2010-03-25 00:00:00 Completed [facility] TDAP (ADACEL) VACCINE 2010-03-25 00:00:00 Completed [facility] (hep a/hep b) 2010-03-25 00:00:00 Completed [facility] PPD (TB) 2010-03-25 00:00:00 Completed [facility] Pneumococcal 7 Conjugate, PCV7 (Prevnar7) 2010-03-25 00:00:00 Completed [facility] TDAP (ADACEL) VACCINE 2010-03-25 00:00:00 Completed [facility] (hep a/hep b) 2010-03-25 00:00:00 Completed [facility] PPD (TB) 2010-03-25 00:00:00 Completed [facility] Pneumococcal 7 Conjugate, PCV7 (Prevnar7) 2010-03-25 00:00:00 Completed [facility] TDAP (ADACEL) VACCINE 2010-03-25 00:00:00 Completed [facility] (hep a/hep b) 2010-03-25 00:00:00 Completed [facility] PPD (TB) 2010-03-25 00:00:00 Completed [facility] Pneumococcal 7 Conjugate, PCV7 (Prevnar7) 2010-03-25 00:00:00 Completed [facility] TDAP (ADACEL) VACCINE 2010-03-25 00:00:00 Completed [facility] (hep a/hep b) 2010-03-25 00:00:00 Completed [facility] PPD (TB) 2010-03-25 00:00:00 Completed [facility] Pneumococcal 7 Conjugate, PCV7 (Prevnar7) 2010-03-25 00:00:00 Completed [facility] TDAP (ADACEL) VACCINE 2010-03-25 00:00:00 Completed [facility] (hep a/hep b) 2010-03-25 00:00:00 Completed [facility] PPD (TB) 2010-03-25 00:00:00 Completed [facility] Pneumococcal 7 Conjugate, PCV7 (Prevnar7) 2010-03-25 00:00:00 Completed [facility] TDAP (ADACEL) VACCINE 2010-03-25 00:00:00 Completed [facility] (hep a/hep b) 2010-03-25 00:00:00 Completed [facility] PPD (TB) 2010-03-25 00:00:00 Completed [facility] Pneumococcal 7 Conjugate, PCV7 (Prevnar7) 2010-03-25 00:00:00 Completed [facility] TDAP (ADACEL) VACCINE 2010-03-25 00:00:00 Completed [facility] (hep a/hep b) 2010-03-25 00:00:00 Completed [facility] PPD (TB) 2010-03-25 00:00:00 Completed [facility] Pneumococcal 7 Conjugate, PCV7 (Prevnar7) 2010-03-25 00:00:00 Completed [facility] TDAP (ADACEL) VACCINE 2010-03-25 00:00:00 Completed [facility] (hep a/hep b) 2010-03-25 00:00:00 Completed [facility] PPD (TB) 2010-03-25 00:00:00 Completed [facility] Pneumococcal 7 Conjugate, PCV7 (Prevnar7) 2010-03-25 00:00:00 Completed [facility] TDAP (ADACEL) VACCINE 2010-03-25 00:00:00 Completed [facility] (hep a/hep b) 2010-03-25 00:00:00 Completed [facility] PPD (TB) 2010-03-25 00:00:00 Completed [facility] Pneumococcal 7 Conjugate, PCV7 (Prevnar7) 2010-03-25 00:00:00 Completed [facility] TDAP (ADACEL) VACCINE 2010-03-25 00:00:00 Completed [facility] (hep a/hep b) 2010-03-25 00:00:00 Completed [facility] PPD (TB) 2010-03-25 00:00:00 Completed [facility] Pneumococcal 7 Conjugate, PCV7 (Prevnar7) 2010-03-25 00:00:00 Completed [facility] TDAP (ADACEL) VACCINE 2010-03-25 00:00:00 Completed [facility] (hep a/hep b) 2010-03-25 00:00:00 Completed [facility] PPD (TB) 2010-03-25 00:00:00 Completed [facility] Pneumococcal 7 Conjugate, PCV7 (Prevnar7) 2010-03-25 00:00:00 Completed [facility] TDAP (ADACEL) VACCINE 2010-03-25 00:00:00 Completed [facility] (hep a/hep b) 2010-03-25 00:00:00 Completed [facility] PPD (TB) 2010-03-25 00:00:00 Completed [facility] Pneumococcal 7 Conjugate, PCV7 (Prevnar7) 2010-03-25 00:00:00 Completed [facility] TDAP (ADACEL) VACCINE 2010-03-25 00:00:00 Completed [facility] (hep a/hep b) 2010-03-25 00:00:00 Completed [facility] PPD (TB) 2010-03-25 00:00:00 Completed [facility] Pneumococcal 7 Conjugate, PCV7 (Prevnar7) 2010-03-25 00:00:00 Completed [facility] TDAP (ADACEL) VACCINE 2010-03-25 00:00:00 Completed [facility] (hep a/hep b) 2010-03-25 00:00:00 Completed [facility] PPD (TB) 2010-03-25 00:00:00 Completed [facility] Pneumococcal 7 Conjugate, PCV7 (Prevnar7) 2010-03-25 00:00:00 Completed [facility] TDAP (ADACEL) VACCINE 2010-03-25 00:00:00 Completed [facility] (hep a/hep b) 2010-03-25 00:00:00 Completed [facility] PPD (TB) 2010-03-25 00:00:00 Completed [facility] Pneumococcal 7 Conjugate, PCV7 (Prevnar7) 2010-03-25 00:00:00 Completed [facility] TDAP (ADACEL) VACCINE 2010-03-25 00:00:00 Completed [facility] (hep a/hep b) 2010-03-25 00:00:00 Completed [facility] PPD (TB) 2010-03-25 00:00:00 Completed [facility] Pneumococcal 7 Conjugate, PCV7 (Prevnar7) 2010-03-25 00:00:00 Completed [facility] TDAP (ADACEL) VACCINE 2010-03-25 00:00:00 Completed [facility] (hep a/hep b) 2010-03-25 00:00:00 Completed [facility] PPD (TB) 2010-03-25 00:00:00 Completed [facility] Pneumococcal 7 Conjugate, PCV7 (Prevnar7) 2010-03-25 00:00:00 Completed [facility] TDAP (ADACEL) VACCINE 2010-03-25 00:00:00 Completed [facility] (hep a/hep b) 2010-03-25 00:00:00 Completed [facility] PPD (TB) 2010-03-25 00:00:00 Completed [facility] Pneumococcal 7 Conjugate, PCV7 (Prevnar7) 2010-03-25 00:00:00 Completed [facility] TDAP (ADACEL) VACCINE 2010-03-25 00:00:00 Completed [facility] (hep a/hep b) 2010-03-25 00:00:00 Completed [facility] PPD (TB) 2010-03-25 00:00:00 Completed [facility] Pneumococcal 7 Conjugate, PCV7 (Prevnar7) 2010-03-25 00:00:00 Completed [facility] TDAP (ADACEL) VACCINE 2010-03-25 00:00:00 Completed [facility] (hep a/hep b) 2010-03-25 00:00:00 Completed [facility] PPD (TB) 2010-03-25 00:00:00 Completed [facility] Pneumococcal 7 Conjugate, PCV7 (Prevnar7) 2010-03-25 00:00:00 Completed [facility] TDAP (ADACEL) VACCINE 2010-03-25 00:00:00 Completed [facility] (hep a/hep b) 2010-03-25 00:00:00 Completed [facility] PPD (TB) 2010-03-25 00:00:00 Completed [facility] Pneumococcal 7 Conjugate, PCV7 (Prevnar7) 2010-03-25 00:00:00 Completed [facility] TDAP (ADACEL) VACCINE 2010-03-25 00:00:00 Completed [facility] (hep a/hep b) 2010-03-25 00:00:00 Completed [facility] PPD (TB) 2010-03-25 00:00:00 Completed [facility] Pneumococcal 7 Conjugate, PCV7 (Prevnar7) 2010-03-25 00:00:00 Completed [facility] TDAP (ADACEL) VACCINE 2010-03-25 00:00:00 Completed [facility] (hep a/hep b) 2010-03-25 00:00:00 Completed [facility] PPD (TB) 2010-03-25 00:00:00 Completed [facility] Pneumococcal 7 Conjugate, PCV7 (Prevnar7) 2010-03-25 00:00:00 Completed [facility] TDAP (ADACEL) VACCINE 2010-03-25 00:00:00 Completed [facility] (hep a/hep b) 2010-03-25 00:00:00 Completed [facility] PPD (TB) 2010-03-25 00:00:00 Completed [facility] Pneumococcal 7 Conjugate, PCV7 (Prevnar7) 2010-03-25 00:00:00 Completed [facility] TDAP (ADACEL) VACCINE 2010-03-25 00:00:00 Completed [facility] (hep a/hep b) 2010-03-25 00:00:00 Completed [facility] PPD (TB) 2010-03-25 00:00:00 Completed [facility] Pneumococcal 7 Conjugate, PCV7 (Prevnar7) 2010-03-25 00:00:00 Completed [facility] TDAP (ADACEL) VACCINE 2010-03-25 00:00:00 Completed [facility] (hep a/hep b) 2010-03-25 00:00:00 Completed [facility] Influenza Virus Vaccine 2009-06-25 00:00:00 Completed [facility] H1n1 Vaccine 2009-06-25 00:00:00 Completed [facility] Influenza Virus Vaccine 2009-06-25 00:00:00 Completed [facility] H1n1 Vaccine 2009-06-25 00:00:00 Completed [facility] Influenza Virus Vaccine 2009-06-25 00:00:00 Completed [facility] H1n1 Vaccine 2009-06-25 00:00:00 Completed [facility] Influenza Virus Vaccine 2009-06-25 00:00:00 Completed [facility] H1n1 Vaccine 2009-06-25 00:00:00 Completed [facility] Influenza Virus Vaccine 2009-06-25 00:00:00 Completed [facility] H1n1 Vaccine 2009-06-25 00:00:00 Completed [facility] Influenza Virus Vaccine 2009-06-25 00:00:00 Completed [facility] H1n1 Vaccine 2009-06-25 00:00:00 Completed [facility] Influenza Virus Vaccine 2009-06-25 00:00:00 Completed [facility] H1n1 Vaccine 2009-06-25 00:00:00 Completed [facility] Influenza Virus Vaccine 2009-06-25 00:00:00 Completed [facility] H1n1 Vaccine 2009-06-25 00:00:00 Completed [facility] Influenza Virus Vaccine 2009-06-25 00:00:00 Completed [facility] H1n1 Vaccine 2009-06-25 00:00:00 Completed [facility] Influenza Virus Vaccine 2009-06-25 00:00:00 Completed [facility] H1n1 Vaccine 2009-06-25 00:00:00 Completed [facility] Influenza Virus Vaccine 2009-06-25 00:00:00 Completed [facility] H1n1 Vaccine 2009-06-25 00:00:00 Completed [facility] Influenza Virus Vaccine 2009-06-25 00:00:00 Completed [facility] H1n1 Vaccine 2009-06-25 00:00:00 Completed [facility] Influenza Virus Vaccine 2009-06-25 00:00:00 Completed [facility] H1n1 Vaccine 2009-06-25 00:00:00 Completed [facility] Influenza Virus Vaccine 2009-06-25 00:00:00 Completed [facility] H1n1 Vaccine 2009-06-25 00:00:00 Completed [facility] Influenza Virus Vaccine 2009-06-25 00:00:00 Completed [facility] H1n1 Vaccine 2009-06-25 00:00:00 Completed [facility] Influenza Virus Vaccine 2009-06-25 00:00:00 Completed [facility] H1n1 Vaccine 2009-06-25 00:00:00 Completed [facility] Influenza Virus Vaccine 2009-06-25 00:00:00 Completed [facility] H1n1 Vaccine 2009-06-25 00:00:00 Completed [facility] Influenza Virus Vaccine 2009-06-25 00:00:00 Completed [facility] H1n1 Vaccine 2009-06-25 00:00:00 Completed [facility] Influenza Virus Vaccine 2009-06-25 00:00:00 Completed [facility] H1n1 Vaccine 2009-06-25 00:00:00 Completed [facility] Influenza Virus Vaccine 2009-06-25 00:00:00 Completed [facility] H1n1 Vaccine 2009-06-25 00:00:00 Completed [facility] Influenza Virus Vaccine 2009-06-25 00:00:00 Completed [facility] H1n1 Vaccine 2009-06-25 00:00:00 Completed [facility] Influenza Virus Vaccine 2009-06-25 00:00:00 Completed [facility] H1n1 Vaccine 2009-06-25 00:00:00 Completed [facility] Influenza Virus Vaccine 2009-06-25 00:00:00 Completed [facility] H1n1 Vaccine 2009-06-25 00:00:00 Completed [facility] Influenza Virus Vaccine 2009-06-25 00:00:00 Completed [facility] H1n1 Vaccine 2009-06-25 00:00:00 Completed [facility] Influenza Virus Vaccine 2009-06-25 00:00:00 Completed [facility] H1n1 Vaccine 2009-06-25 00:00:00 Completed [facility] Influenza Virus Vaccine 2009-06-25 00:00:00 Completed [facility] H1n1 Vaccine 2009-06-25 00:00:00 Completed [facility] Influenza Virus Vaccine 2009-06-25 00:00:00 Completed [facility] H1n1 Vaccine 2009-06-25 00:00:00 Completed [facility] Influenza Virus Vaccine 2009-06-25 00:00:00 Completed [facility] H1n1 Vaccine 2009-06-25 00:00:00 Completed [facility] Influenza Virus Vaccine 2009-06-25 00:00:00 Completed [facility] H1n1 Vaccine 2009-06-25 00:00:00 Completed [facility] Influenza Virus Vaccine 2009-06-25 00:00:00 Completed [facility] H1n1 Vaccine 2009-06-25 00:00:00 Completed [facility] Influenza Virus Vaccine 2009-06-25 00:00:00 Completed [facility] H1n1 Vaccine 2009-06-25 00:00:00 Completed [facility] Influenza Virus Vaccine 2009-06-25 00:00:00 Completed [facility] H1n1 Vaccine 2009-06-25 00:00:00 Completed [facility] Influenza Virus Vaccine 2009-06-25 00:00:00 Completed [facility] H1n1 Vaccine 2009-06-25 00:00:00 Completed [facility] Influenza Virus Vaccine 2009-06-25 00:00:00 Completed [facility] H1n1 Vaccine 2009-06-25 00:00:00 Completed [facility] Influenza Virus Vaccine 2009-06-25 00:00:00 Completed [facility] H1n1 Vaccine 2009-06-25 00:00:00 Completed [facility] Influenza Virus Vaccine 2009-06-25 00:00:00 Completed [facility] H1n1 Vaccine 2009-06-25 00:00:00 Completed [facility] Influenza Virus Vaccine 2009-06-25 00:00:00 Completed [facility] H1n1 Vaccine 2009-06-25 00:00:00 Completed [facility] Influenza Virus Vaccine 2009-06-25 00:00:00 Completed [facility] H1n1 Vaccine 2009-06-25 00:00:00 Completed [facility] Influenza Virus Vaccine 2009-06-25 00:00:00 Completed [facility] H1n1 Vaccine 2009-06-25 00:00:00 Completed [facility] Influenza Virus Vaccine 2009-06-25 00:00:00 Completed [facility] H1n1 Vaccine 2009-06-25 00:00:00 Completed [facility] Influenza Virus Vaccine 2009-06-25 00:00:00 Completed [facility] H1n1 Vaccine 2009-06-25 00:00:00 Completed [facility] Influenza Virus Vaccine 2009-06-25 00:00:00 Completed [facility] H1n1 Vaccine 2009-06-25 00:00:00 Completed [facility] Influenza Virus Vaccine 2009-06-25 00:00:00 Completed [facility] H1n1 Vaccine 2009-06-25 00:00:00 Completed [facility] Influenza Virus Vaccine 2009-06-25 00:00:00 Completed [facility] H1n1 Vaccine 2009-06-25 00:00:00 Completed [facility] Influenza Virus Vaccine Unknown Completed [facility] H1n1 Vaccine Unknown Completed [facility] PPD (TB) Unknown Completed [facility] Pneumococcal 7 Conjugate, PCV7 (Prevnar7) Unknown Completed [facility] TDAP (ADACEL) VACCINE Unknown Completed [facility] (hep a/hep b) Unknown Completed [facility] Hep B, Adol or Pedi Dosage Unknown Completed [facility] HEPATITIS A Unknown Completed [facility] PPD (TB) Unknown Completed [facility] Influenza Virus Vaccine (3+ yrs) Unknown Completed [facility] Pneumococcal 13 Conjugate, PCV13 (Prevnar 13) Unknown Completed [facility] Pneumococcal Polysaccharide, PPSV23 (PNEUMOVAX) Unknown Completed [facility] Influenza Virus Vaccine Quad .5 mL IM 6+ MO (FLUZONE/FLULAVAL/F LUARIX) Unknown Completed [facility] Influenza Virus Vaccine Recomb Quad IM, Preserv and ABX Free 18-64 YRS Unknown Completed [facility] Pneumococcal 20 Conjugate, PCV20 (Prevnar 20) Unknown Completed [facility] H1n1 Vaccine Unknown Completed [facility] PPD (TB) Unknown Completed [facility] Pneumococcal 7 Conjugate, PCV7 (Prevnar7) Unknown Completed [facility] TDAP (ADACEL) VACCINE Unknown Completed [facility] (hep a/hep b) Unknown Completed [facility] HEPATITIS A Unknown Completed [facility] Influenza Virus Vaccine (3+ yrs) Unknown Completed [facility] Pneumococcal 13 Conjugate, PCV13 (Prevnar 13) Unknown Completed [facility] Pneumococcal Polysaccharide, PPSV23 (PNEUMOVAX) Unknown Completed [facility] Influenza Virus Vaccine Quad .5 mL IM 6+ MO (FLUZONE/FLULAVAL/F LUARIX) Unknown Completed [facility] Influenza Virus Vaccine Recomb Quad IM, Preserv and ABX Free 18-64 YRS Unknown Completed [facility] Pneumococcal 20 Conjugate, PCV20 (Prevnar 20) Unknown Completed [facility] Influenza Virus Vaccine Unknown Completed [facility] Hep B, Adol or Pedi Dosage Unknown Completed [facility] PPD (TB) Unknown Completed [facility] Influenza Virus Vaccine Unknown Completed [facility] H1n1 Vaccine Unknown Completed [facility] PPD (TB) Unknown Completed [facility] Pneumococcal 7 Conjugate, PCV7 (Prevnar7) Unknown Completed [facility] TDAP (ADACEL) VACCINE Unknown Completed [facility] (hep a/hep b) Unknown Completed [facility] Hep B, Adol or Pedi Dosage Unknown Completed [facility] HEPATITIS A Unknown Completed [facility] PPD (TB) Unknown Completed [facility] Influenza Virus Vaccine (3+ yrs) Unknown Completed [facility] Influenza Virus Vaccine Quad IM 3+ YRS Unknown Completed [facility] Pneumococcal 13 Conjugate, PCV13 (Prevnar 13) Unknown Completed [facility] Pneumococcal Polysaccharide, PPSV23 (PNEUMOVAX) Unknown Completed [facility] Influenza Virus Vaccine Recomb Quad IM, Preserv and ABX Free 18-64 YRS Unknown Completed [facility] Pneumococcal 20 Conjugate, PCV20 (Prevnar 20) Unknown Completed [facility] Influenza Virus Vaccine Unknown Completed [facility] H1n1 Vaccine Unknown Completed [facility] PPD (TB) Unknown Completed [facility] Pneumococcal 7 Conjugate, PCV7 (Prevnar7) Unknown Completed [facility] TDAP (ADACEL) VACCINE Unknown Completed [facility] (hep a/hep b) Unknown Completed [facility] Hep B, Adol or Pedi Dosage Unknown Completed [facility] HEPATITIS A Unknown Completed [facility] PPD (TB) Unknown Completed [facility] Influenza Virus Vaccine (3+ yrs) Unknown Completed [facility] Influenza Virus Vaccine Quad IM 3+ YRS Unknown Completed [facility] Pneumococcal 13 Conjugate, PCV13 (Prevnar 13) Unknown Completed [facility] Pneumococcal Polysaccharide, PPSV23 (PNEUMOVAX) Unknown Completed [facility] Influenza Virus Vaccine Recomb Quad IM, Preserv and ABX Free 18-64 YRS Unknown Completed [facility] Pneumococcal 20 Conjugate, PCV20 (Prevnar 20) Unknown Completed [facility] Influenza Virus Vaccine Unknown Completed [facility] H1n1 Vaccine Unknown Completed [facility] PPD (TB) Unknown Completed [facility] Pneumococcal 7 Conjugate, PCV7 (Prevnar7) Unknown Completed [facility] TDAP (ADACEL) VACCINE Unknown Completed [facility] (hep a/hep b) Unknown Completed [facility] Hep B, Adol or Pedi Dosage Unknown Completed [facility] HEPATITIS A Unknown Completed [facility] PPD (TB) Unknown Completed [facility] Influenza Virus Vaccine (3+ yrs) Unknown Completed [facility] Influenza Virus Vaccine Quad IM 3+ YRS Unknown Completed [facility] Pneumococcal 13 Conjugate, PCV13 (Prevnar 13) Unknown Completed [facility] Pneumococcal Polysaccharide, PPSV23 (PNEUMOVAX) Unknown Completed [facility] Influenza Virus Vaccine Recomb Quad IM, Preserv and ABX Free 18-64 YRS Unknown Completed [facility] Pneumococcal 20 Conjugate, PCV20 (Prevnar 20) Unknown Completed [facility] Influenza Virus Vaccine Unknown Completed [facility] H1n1 Vaccine Unknown Completed [facility] PPD (TB) Unknown Completed [facility] Pneumococcal 7 Conjugate, PCV7 (Prevnar7) Unknown Completed [facility] TDAP (ADACEL) VACCINE Unknown Completed [facility] (hep a/hep b) Unknown Completed [facility] Hep B, Adol or Pedi Dosage Unknown Completed [facility] HEPATITIS A Unknown Completed [facility] PPD (TB) Unknown Completed [facility] Influenza Virus Vaccine (3+ yrs) Unknown Completed [facility] Influenza Virus Vaccine Quad IM 3+ YRS Unknown Completed [facility] Pneumococcal 13 Conjugate, PCV13 (Prevnar 13) Unknown Completed [facility] Pneumococcal Polysaccharide, PPSV23 (PNEUMOVAX) Unknown Completed [facility] Influenza Virus Vaccine Recomb Quad IM, Preserv and ABX Free 18-64 YRS Unknown Completed [facility] Pneumococcal 20 Conjugate, PCV20 (Prevnar 20) Unknown Completed [facility] Influenza Virus Vaccine Unknown Completed [facility] H1n1 Vaccine Unknown Completed [facility] PPD (TB) Unknown Completed [facility] Pneumococcal 7 Conjugate, PCV7 (Prevnar7) Unknown Completed [facility] TDAP (ADACEL) VACCINE Unknown Completed [facility] (hep a/hep b) Unknown Completed [facility] Hep B, Adol or Pedi Dosage Unknown Completed [facility] HEPATITIS A Unknown Completed [facility] PPD (TB) Unknown Completed [facility] Influenza Virus Vaccine (3+ yrs) Unknown Completed [facility] Influenza Virus Vaccine Quad IM 3+ YRS Unknown Completed [facility] Pneumococcal 13 Conjugate, PCV13 (Prevnar 13) Unknown Completed [facility] Pneumococcal Polysaccharide, PPSV23 (PNEUMOVAX) Unknown Completed [facility] Influenza Virus Vaccine Recomb Quad IM, Preserv and ABX Free 18-64 YRS Unknown Completed [facility] Pneumococcal 20 Conjugate, PCV20 (Prevnar 20) Unknown Completed [facility] Influenza Virus Vaccine Unknown Completed [facility] H1n1 Vaccine Unknown Completed [facility] PPD (TB) Unknown Completed [facility] Pneumococcal 7 Conjugate, PCV7 (Prevnar7) Unknown Completed [facility] TDAP (ADACEL) VACCINE Unknown Completed [facility] (hep a/hep b) Unknown Completed [facility] Hep B, Adol or Pedi Dosage Unknown Completed [facility] HEPATITIS A Unknown Completed [facility] PPD (TB) Unknown Completed [facility] Influenza Virus Vaccine (3+ yrs) Unknown Completed [facility] Influenza Virus Vaccine Quad IM 3+ YRS Unknown Completed [facility] Pneumococcal 13 Conjugate, PCV13 (Prevnar 13) Unknown Completed [facility] Pneumococcal Polysaccharide, PPSV23 (PNEUMOVAX) Unknown Completed [facility] Influenza Virus Vaccine Recomb Quad IM, Preserv and ABX Free 18-64 YRS Unknown Completed [facility] Pneumococcal 20 Conjugate, PCV20 (Prevnar 20) Unknown Completed [facility] Influenza Virus Vaccine Unknown Completed [facility] H1n1 Vaccine Unknown Completed [facility] PPD (TB) Unknown Completed [facility] Pneumococcal 7 Conjugate, PCV7 (Prevnar7) Unknown Completed [facility] TDAP (ADACEL) VACCINE Unknown Completed [facility] (hep a/hep b) Unknown Completed [facility] Hep B, Adol or Pedi Dosage Unknown Completed [facility] HEPATITIS A Unknown Completed [facility] PPD (TB) Unknown Completed [facility] Influenza Virus Vaccine (3+ yrs) Unknown Completed [facility] Influenza Virus Vaccine Quad IM 3+ YRS Unknown Completed [facility] Pneumococcal 13 Conjugate, PCV13 (Prevnar 13) Unknown Completed [facility] Pneumococcal Polysaccharide, PPSV23 (PNEUMOVAX) Unknown Completed [facility] Influenza Virus Vaccine Recomb Quad IM, Preserv and ABX Free 18-64 YRS Unknown Completed [facility] Pneumococcal 20 Conjugate, PCV20 (Prevnar 20) Unknown Completed [facility] H1n1 Vaccine Unknown Completed [facility] PPD (TB) Unknown Completed [facility] Pneumococcal 7 Conjugate, PCV7 (Prevnar7) Unknown Completed [facility] TDAP (ADACEL) VACCINE Unknown Completed [facility] (hep a/hep b) Unknown Completed [facility] HEPATITIS A Unknown Completed [facility] Influenza Virus Vaccine (3+ yrs) Unknown Completed [facility] Pneumococcal 13 Conjugate, PCV13 (Prevnar 13) Unknown Completed [facility] Pneumococcal Polysaccharide, PPSV23 (PNEUMOVAX) Unknown Completed [facility] Pneumococcal 20 Conjugate, PCV20 (Prevnar 20) Unknown Completed [facility] Influenza Virus Vaccine Unknown Completed [facility] Hep B, Adol or Pedi Dosage Unknown Completed [facility] PPD (TB) Unknown Completed [facility] Influenza Virus Vaccine Quad IM 3+ YRS Unknown Completed [facility] Influenza Virus Vaccine Recomb Quad IM, Preserv and ABX Free 18-64 YRS Unknown Completed [facility] Influenza Virus Vaccine Unknown Completed [facility] H1n1 Vaccine Unknown Completed [facility] PPD (TB) Unknown Completed [facility] Pneumococcal 7 Conjugate, PCV7 (Prevnar7) Unknown Completed [facility] TDAP (ADACEL) VACCINE Unknown Completed [facility] (hep a/hep b) Unknown Completed [facility] Hep B, Adol or Pedi Dosage Unknown Completed [facility] HEPATITIS A Unknown Completed [facility] PPD (TB) Unknown Completed [facility] Influenza Virus Vaccine (3+ yrs) Unknown Completed [facility] Influenza Virus Vaccine Quad IM 3+ YRS Unknown Completed [facility] Pneumococcal 13 Conjugate, PCV13 (Prevnar 13) Unknown Completed [facility] Pneumococcal Polysaccharide, PPSV23 (PNEUMOVAX) Unknown Completed [facility] Influenza Virus Vaccine Recomb Quad IM, Preserv and ABX Free 18-64 YRS Unknown Completed [facility] Pneumococcal 20 Conjugate, PCV20 (Prevnar 20) Unknown Completed [facility] Influenza Virus Vaccine Unknown Completed [facility] H1n1 Vaccine Unknown Completed [facility] PPD (TB) Unknown Completed [facility] Pneumococcal 7 Conjugate, PCV7 (Prevnar7) Unknown Completed [facility] TDAP (ADACEL) VACCINE Unknown Completed [facility] Twinrix (hep a/hep b) Unknown Completed [facility] Hep B, Adol or Pedi Dosage Unknown Completed [facility] HEPATITIS A Unknown Completed [facility] PPD (TB) Unknown Completed [facility] Influenza Virus Vaccine (3+ yrs) Unknown Completed [facility] Influenza Virus Vaccine Quad IM 3+ YRS Unknown Completed [facility] Pneumococcal 13 Conjugate, PCV13 (Prevnar 13) Unknown Completed [facility] Pneumococcal Polysaccharide, PPSV23 (PNEUMOVAX) Unknown Completed [facility] Influenza Virus Vaccine Recomb Quad IM, Preserv and ABX Free 18-64 YRS Unknown Completed [facility] Pneumococcal 20 Conjugate, PCV20 (Prevnar 20) Unknown Completed [facility] H1n1 Vaccine Unknown Completed [facility] PPD (TB) Unknown Completed [facility] Pneumococcal 7 Conjugate, PCV7 (Prevnar7) Unknown Completed [facility] TDAP (ADACEL) VACCINE Unknown Completed [facility] Twinrix (hep a/hep b) Unknown Completed [facility] HEPATITIS A Unknown Completed [facility] Influenza Virus Vaccine (3+ yrs) Unknown Completed [facility] Pneumococcal 13 Conjugate, PCV13 (Prevnar 13) Unknown Completed [facility] Pneumococcal Polysaccharide, PPSV23 (PNEUMOVAX) Unknown Completed [facility] Pneumococcal 20 Conjugate, PCV20 (Prevnar 20) Unknown Completed [facility] Influenza Virus Vaccine Unknown Completed [facility] Hep B, Adol or Pedi Dosage Unknown Completed [facility] PPD (TB) Unknown Completed [facility] Influenza Virus Vaccine Quad IM 3+ YRS Unknown Completed [facility] Influenza Virus Vaccine Recomb Quad IM, Preserv and ABX Free 18-64 YRS Unknown Completed [facility] Influenza Virus Vaccine Unknown Completed [facility] H1n1 Vaccine Unknown Completed [facility] PPD (TB) Unknown Completed [facility] Pneumococcal 7 Conjugate, PCV7 (Prevnar7) Unknown Completed [facility] TDAP (ADACEL) VACCINE Unknown Completed [facility] Twinrix (hep a/hep b) Unknown Completed [facility] Hep B, Adol or Pedi Dosage Unknown Completed [facility] HEPATITIS A Unknown Completed [facility] PPD (TB) Unknown Completed [facility] Influenza Virus Vaccine (3+ yrs) Unknown Completed [facility] Influenza Virus Vaccine Quad IM 3+ YRS Unknown Completed [facility] Pneumococcal 13 Conjugate, PCV13 (Prevnar 13) Unknown Completed [facility] Pneumococcal Polysaccharide, PPSV23 (PNEUMOVAX) Unknown Completed [facility] Influenza Virus Vaccine Recomb Quad IM, Preserv and ABX Free 18-64 YRS Unknown Completed [facility] Pneumococcal 20 Conjugate, PCV20 (Prevnar 20) Unknown Completed [facility] Influenza Virus Vaccine Unknown Completed [facility] H1n1 Vaccine Unknown Completed [facility] PPD (TB) Unknown Completed [facility] Pneumococcal 7 Conjugate, PCV7 (Prevnar7) Unknown Completed [facility] TDAP (ADACEL) VACCINE Unknown Completed [facility] Twinrix (hep a/hep b) Unknown Completed [facility] Hep B, Adol or Pedi Dosage Unknown Completed [facility] HEPATITIS A Unknown [facility]TB) Unknown Completed [facility] Influenza Virus Vaccine (3+ yrs) Unknown Completed [facility] Influenza Virus Vaccine Quad IM 3+ YRS Unknown Completed [facility] Pneumococcal 13 Conjugate, PCV13 (Prevnar 13) Unknown Completed [facility] Pneumococcal Polysaccharide, PPSV23 (PNEUMOVAX) Unknown Completed [facility] Influenza Virus Vaccine Recomb Quad IM, Preserv and ABX Free 18-64 YRS Unknown Completed [facility] Pneumococcal 20 Conjugate, PCV20 (Prevnar 20) Unknown Completed [facility] H1n1 Vaccine Unknown Completed [facility] PPD (TB) Unknown Completed [facility] Pneumococcal 7 Conjugate, PCV7 (Prevnar7) Unknown Completed [facility] TDAP (ADACEL) VACCINE Unknown Completed [facility] Twinrix (hep a/hep b) Unknown Completed [facility] HEPATITIS A Unknown Completed [facility] Influenza Virus Vaccine (3+ yrs) Unknown Completed [facility] Pneumococcal 13 Conjugate, PCV13 (Prevnar 13) Unknown Completed [facility] Pneumococcal Polysaccharide, PPSV23 (PNEUMOVAX) Unknown Completed [facility] Pneumococcal 20 Conjugate, PCV20 (Prevnar 20) Unknown Completed [facility] H1n1 Vaccine Unknown Completed [facility] PPD (TB) Unknown Completed [facility] Pneumococcal 7 Conjugate, PCV7 (Prevnar7) Unknown Completed [facility] TDAP (ADACEL) VACCINE Unknown Completed [facility] Twinrix (hep a/hep b) Unknown Completed [facility] HEPATITIS A Unknown Completed [facility] Influenza Virus Vaccine (3+ yrs) Unknown Completed [facility] Pneumococcal 13 Conjugate, PCV13 (Prevnar 13) Unknown Completed [facility] Pneumococcal Polysaccharide, PPSV23 (PNEUMOVAX) Unknown Completed [facility] Pneumococcal 20 Conjugate, PCV20 (Prevnar 20) Unknown Completed [facility] Influenza Virus Vaccine Unknown Completed [facility] Hep B, Adol or Pedi Dosage Unknown Completed [facility] PPD (TB) Unknown Completed [facility] Influenza Virus Vaccine Quad IM 3+ YRS Unknown Completed [facility] Influenza Virus Vaccine Recomb Quad IM, Preserv and ABX Free 18-64 YRS Unknown Completed [facility] Influenza Virus Vaccine Unknown Completed [facility] Hep B, Adol or Pedi Dosage Unknown Completed [facility] PPD (TB) Unknown Completed [facility] Influenza Virus Vaccine Quad IM 3+ YRS Unknown Completed [facility] Influenza Virus Vaccine Recomb Quad IM, Preserv and ABX Free 18-64 YRS Unknown Completed [facility] Influenza Virus Vaccine Unknown Completed [facility] H1n1 Vaccine Unknown Completed [facility] PPD (TB) Unknown Completed [facility] Pneumococcal 7 Conjugate, PCV7 (Prevnar7) Unknown Completed [facility] TDAP (ADACEL) VACCINE Unknown Completed [facility] Twinrix (hep a/hep b) Unknown Completed [facility] Hep B, Adol or Pedi Dosage Unknown Completed [facility] HEPATITIS A Unknown Completed [facility] PPD (TB) Unknown Completed [facility] Influenza Virus Vaccine (3+ yrs) Unknown Completed [facility] Influenza Virus Vaccine Quad IM 3+ YRS Unknown Completed [facility] Pneumococcal 13 Conjugate, PCV13 (Prevnar 13) Unknown Completed [facility] Pneumococcal Polysaccharide, PPSV23 (PNEUMOVAX) Unknown Completed [facility] Influenza Virus Vaccine Recomb Quad IM, Preserv and ABX Free 18-64 YRS Unknown Completed [facility] Pneumococcal 20 Conjugate, PCV20 (Prevnar 20) Unknown Completed [facility] H1n1 Vaccine Unknown Completed [facility] PPD (TB) Unknown Completed [facility] Pneumococcal 7 Conjugate, PCV7 (Prevnar7) Unknown Completed [facility] TDAP (ADACEL) VACCINE Unknown Completed [facility] Twinrix (hep a/hep b) Unknown Completed [facility] HEPATITIS A Unknown Completed [facility] Influenza Virus Vaccine (3+ yrs) Unknown Completed [facility] Pneumococcal 13 Conjugate, PCV13 (Prevnar 13) Unknown Completed [facility] Pneumococcal Polysaccharide, PPSV23 (PNEUMOVAX) Unknown Completed [facility] Pneumococcal 20 Conjugate, PCV20 (Prevnar 20) Unknown Completed [facility] Influenza Virus Vaccine Unknown Completed [facility] Hep B, Adol or Pedi Dosage Unknown Completed [facility] PPD (TB) Unknown Completed [facility] Influenza Virus Vaccine Quad IM 3+ YRS Unknown Completed [facility] Influenza Virus Vaccine Recomb Quad IM, Preserv and ABX Free 18-64 YRS Unknown Completed [facility] Influenza Virus Vaccine Unknown Completed [facility] H1n1 Vaccine Unknown Completed [facility] PPD (TB) Unknown Completed [facility] Pneumococcal 7 Conjugate, PCV7 (Prevnar7) Unknown Completed [facility] TDAP (ADACEL) VACCINE Unknown Completed [facility] Twinrix (hep a/hep b) Unknown Completed [facility] Hep B, Adol or Pedi Dosage Unknown Completed [facility] HEPATITIS A Unknown Completed [facility] PPD (TB) Unknown Completed [facility] Influenza Virus Vaccine (3+ yrs) Unknown Completed [facility] Influenza Virus Vaccine Quad IM 3+ YRS Unknown Completed [facility] Pneumococcal 13 Conjugate, PCV13 (Prevnar 13) Unknown Completed [facility] Pneumococcal Polysaccharide, PPSV23 (PNEUMOVAX) Unknown Completed [facility] Influenza Virus Vaccine Recomb Quad IM, Preserv and ABX Free 18-64 YRS Unknown Completed [facility] Pneumococcal 20 Conjugate, PCV20 (Prevnar 20) Unknown Completed [facility] Influenza Virus Vaccine Unknown Completed [facility] H1n1 Vaccine Unknown Completed [facility] PPD (TB) Unknown Completed [facility] Pneumococcal 7 Conjugate, PCV7 (Prevnar7) Unknown Completed [facility] TDAP (ADACEL) VACCINE Unknown Completed [facility] Twinrix (hep a/hep b) Unknown Completed [facility] Hep B, Adol or Pedi Dosage Unknown Completed [facility] HEPATITIS A Unknown Completed [facility] PPD (TB) Unknown Completed [facility] Influenza Virus Vaccine (3+ yrs) Unknown Completed [facility] Influenza Virus Vaccine Quad IM 3+ YRS Unknown Completed [facility] Pneumococcal 13 Conjugate, PCV13 (Prevnar 13) Unknown Completed [facility] Pneumococcal Polysaccharide, PPSV23 (PNEUMOVAX) Unknown Completed [facility] Influenza Virus Vaccine Recomb Quad IM, Preserv and ABX Free 18-64 YRS Unknown Completed [facility] Pneumococcal 20 Conjugate, PCV20 (Prevnar 20) Unknown Completed [facility] Influenza Virus Vaccine Unknown Completed [facility] H1n1 Vaccine Unknown Completed [facility] PPD (TB) Unknown Completed [facility] Pneumococcal 7 Conjugate, PCV7 (Prevnar7) Unknown Completed [facility] TDAP (ADACEL) VACCINE Unknown Completed [facility] Twinrix (hep a/hep b) Unknown Completed [facility] Hep B, Adol or Pedi Dosage Unknown Completed [facility] HEPATITIS A Unknown Completed [facility] PPD (TB) Unknown Completed [facility] Influenza Virus Vaccine (3+ yrs) Unknown Completed [facility] Influenza Virus Vaccine Quad IM 3+ YRS Unknown Completed [facility] Pneumococcal 13 Conjugate, PCV13 (Prevnar 13) Unknown Completed [facility] Pneumococcal Polysaccharide, PPSV23 (PNEUMOVAX) Unknown Completed [facility] Influenza Virus Vaccine Recomb Quad IM, Preserv and ABX Free 18-64 YRS Unknown Completed [facility] Pneumococcal 20 Conjugate, PCV20 (Prevnar 20) Unknown Completed [facility] Influenza Virus Vaccine Unknown Completed [facility] H1n1 Vaccine Unknown Completed [facility] PPD (TB) Unknown Completed [facility] Pneumococcal 7 Conjugate, PCV7 (Prevnar7) Unknown Completed [facility] TDAP (ADACEL) VACCINE Unknown Completed [facility] Twinrix (hep a/hep b) Unknown Completed [facility] Hep B, Adol or Pedi Dosage Unknown Completed [facility] HEPATITIS A Unknown Completed [facility] PPD (TB) Unknown Completed [facility] Influenza Virus Vaccine (3+ yrs) Unknown Completed [facility] Influenza Virus Vaccine Quad IM 3+ YRS Unknown Completed [facility] Pneumococcal 13 Conjugate, PCV13 (Prevnar 13) Unknown Completed [facility] Pneumococcal Polysaccharide, PPSV23 (PNEUMOVAX) Unknown Completed [facility] Influenza Virus Vaccine Recomb Quad IM, Preserv and ABX Free 18-64 YRS Unknown Completed [facility] Pneumococcal 20 Conjugate, PCV20 (Prevnar 20) Unknown Completed [facility] Influenza Virus Vaccine Unknown Completed [facility] H1n1 Vaccine Unknown Completed [facility] PPD (TB) Unknown Completed [facility] Pneumococcal 7 Conjugate, PCV7 (Prevnar7) Unknown Completed [facility] TDAP (ADACEL) VACCINE Unknown Completed [facility] Twinrix (hep a/hep b) Unknown Completed [facility] Hep B, Adol or Pedi Dosage Unknown Completed [facility] HEPATITIS A Unknown Completed [facility] PPD (TB) Unknown Completed [facility] Influenza Virus Vaccine (3+ yrs) Unknown Completed [facility] Influenza Virus Vaccine Quad IM 3+ YRS Unknown Completed [facility] Pneumococcal 13 Conjugate, PCV13 (Prevnar 13) Unknown Completed [facility] Pneumococcal Polysaccharide, PPSV23 (PNEUMOVAX) Unknown Completed [facility] Influenza Virus Vaccine Recomb Quad IM, Preserv and ABX Free 18-64 YRS Unknown Completed [facility] Pneumococcal 20 Conjugate, PCV20 (Prevnar 20) Unknown Completed [facility] Influenza Virus Vaccine Unknown Completed [facility] H1n1 Vaccine Unknown Completed [facility] PPD (TB) Unknown Completed [facility] Pneumococcal 7 Conjugate, PCV7 (Prevnar7) Unknown Completed [facility] TDAP (ADACEL) VACCINE Unknown Completed [facility] Twinrix (hep a/hep b) Unknown Completed [facility] Hep B, Adol or Pedi Dosage Unknown Completed [facility] HEPATITIS A Unknown Completed [facility] PPD (TB) Unknown Completed [facility] Influenza Virus Vaccine (3+ yrs) Unknown Completed [facility] Influenza Virus Vaccine Quad IM 3+ YRS Unknown Completed [facility] Pneumococcal 13 Conjugate, PCV13 (Prevnar 13) Unknown Completed [facility] Pneumococcal Polysaccharide, PPSV23 (PNEUMOVAX) Unknown Completed [facility] Influenza Virus Vaccine Recomb Quad IM, Preserv and ABX Free 18-64 YRS Unknown Completed [facility] Pneumococcal 20 Conjugate, PCV20 (Prevnar 20) Unknown Completed [facility] Influenza Virus Vaccine Unknown Completed [facility] H1n1 Vaccine Unknown Completed [facility] PPD (TB) Unknown Completed [facility] Pneumococcal 7 Conjugate, PCV7 (Prevnar7) Unknown Completed [facility] TDAP (ADACEL) VACCINE Unknown Completed [facility] Twinrix (hep a/hep b) Unknown Completed [facility] Hep B, Adol or Pedi Dosage Unknown Completed [facility] HEPATITIS A Unknown Completed [facility] PPD (TB) Unknown Completed [facility] Influenza Virus Vaccine (3+ yrs) Unknown Completed [facility] Influenza Virus Vaccine Quad IM 3+ YRS Unknown Completed [facility] Pneumococcal 13 Conjugate, PCV13 (Prevnar 13) Unknown Completed [facility] Pneumococcal Polysaccharide, PPSV23 (PNEUMOVAX) Unknown Completed [facility] Influenza Virus Vaccine Recomb Quad IM, Preserv and ABX Free 18-64 YRS Unknown Completed [facility] Pneumococcal 20 Conjugate, PCV20 (Prevnar 20) Unknown Completed [facility] Influenza Virus Vaccine Unknown Completed [facility] H1n1 Vaccine Unknown Completed [facility] PPD (TB) Unknown Completed [facility] Pneumococcal 7 Conjugate, PCV7 (Prevnar7) Unknown Completed [facility] TDAP (ADACEL) VACCINE Unknown Completed [facility] Twinrix (hep a/hep b) Unknown Completed [facility] Hep B, Adol or Pedi Dosage Unknown Completed [facility] HEPATITIS A Unknown Completed [facility] PPD (TB) Unknown Completed [facility] Influenza Virus Vaccine (3+ yrs) Unknown Completed [facility] Influenza Virus Vaccine Quad IM 3+ YRS Unknown Completed [facility] Pneumococcal 13 Conjugate, PCV13 (Prevnar 13) Unknown Completed [facility] Pneumococcal Polysaccharide, PPSV23 (PNEUMOVAX) Unknown Completed [facility] Influenza Virus Vaccine Recomb Quad IM, Preserv and ABX Free 18-64 YRS Unknown Completed [facility] Pneumococcal 20 Conjugate, PCV20 (Prevnar 20) Unknown Completed [facility] Influenza Virus Vaccine Unknown Completed [facility] H1n1 Vaccine Unknown Completed [facility] PPD (TB) Unknown Completed [facility] Pneumococcal 7 Conjugate, PCV7 (Prevnar7) Unknown Completed [facility] TDAP (ADACEL) VACCINE Unknown Completed [facility] Twinrix (hep a/hep b) Unknown Completed [facility] Hep B, Adol or Pedi Dosage Unknown Completed [facility] HEPATITIS A Unknown Completed [facility] PPD (TB) Unknown Completed [facility] Influenza Virus Vaccine (3+ yrs) Unknown Completed [facility] Influenza Virus Vaccine Quad .5 mL IM 6+ MO (FLUZONE/FLULAVAL/F LUARIX) Unknown Completed [facility] Pneumococcal 13 Conjugate, PCV13 (Prevnar 13) Unknown Completed [facility] Pneumococcal Polysaccharide, PPSV23 (PNEUMOVAX) Unknown Completed [facility] Influenza Virus Vaccine Recomb Quad IM, Preserv and ABX Free 18-64 YRS Unknown Completed [facility] Pneumococcal 20 Conjugate, PCV20 (Prevnar 20) Unknown Completed [facility] Vital Signs Vital Name Observation Time Observation Value Comments S ource Systolic blood pressure 2025-03-15 19:25:00 157 mm[Hg] [facility] Diastolic blood pressure 2025-03-15 19:25:00 111 mm[Hg] [facility] Heart rate 2025-03-15 19:25:00 78 /min [facility] Oxygen saturation in Arterial blood by Pulse oximetry 2025-03-15 19:25:00 100 /min [facility] Respiratory rate 2025-03-15 19:18:00 16 /min [facility] Body height 2025-03-15 19:18:00 180.3 cm [facility] Body weight 2025-03-15 19:18:00 65.227 kg [facility] BMI 2025-03-15 19:18:00 20.06 kg/m2 [facility] Systolic blood pressure 2025-02-27 17:53:00 165 mm[Hg] [facility] Diastolic blood pressure 2025-02-27 17:53:00 116 mm[Hg] [facility] Heart rate 2025-02-27 17:52:00 63 /min [facility] Body temperature 2025-02-27 17:52:00 36.78 Shaye [facility] Body height 2025-02-27 17:52:00 185.4 cm [facility] Body weight 2025-02-27 17:52:00 64.411 kg [facility] BMI 2025-02-27 17:52:00 18.73 kg/m2 [facility] Oxygen saturation in Arterial blood by Pulse oximetry 2025-02-27 17:52:00 100 /min [facility] Systolic blood pressure 2024-11-09 16:15:00 141 mm[Hg] [facility] Diastolic blood pressure 2024-11-09 16:15:00 97 mm[Hg] [facility] Heart rate 2024-11-09 16:13:00 68 /min [facility] Body temperature 2024-11-09 16:13:00 36.39 Shaye [facility] Body height 2024-11-09 16:13:00 185.4 cm [facility] Body weight 2024-11-09 16:13:00 65.318 kg [facility] BMI 2024-11-09 16:13:00 19.00 kg/m2 [facility] Oxygen saturation in Arterial blood by Pulse oximetry 2024-11-09 16:13:00 100 /min [facility] Systolic blood pressure 2024-08-09 16:19:00 127 mm[Hg] [facility] Diastolic blood pressure 2024-08-09 16:19:00 82 mm[Hg] [facility] Heart rate 2024-08-09 16:19:00 73 /min [facility] Body temperature 2024-08-09 16:19:00 36.33 Shaye [facility] Body height 2024-08-09 16:19:00 185.4 cm [facility] Body weight 2024-08-09 16:19:00 69.4 kg [facility] BMI 2024-08-09 16:19:00 20.19 kg/m2 [facility] Oxygen saturation in Arterial blood by Pulse oximetry 2024-08-09 16:19:00 99 /min [facility] Systolic blood pressure 2024-05-11 20:52:00 178 mm[Hg] [facility] Diastolic blood pressure 2024-05-11 20:52:00 112 mm[Hg] [facility] Heart rate 2024-05-11 20:50:00 71 /min [facility] Body temperature 2024-05-11 20:50:00 36.17 Shaye [facility] Respiratory rate 2024-05-11 20:50:00 18 /min [facility] Body height 2024-05-11 20:50:00 [facility] 2024-05-11 20:50:00 68.312 kg [facility] BMI 2024-05-11 20:50:00 19.87 [facility] Arterial blood by Pulse oximetry 2024-05-11 20:50:00 100 /min [facility] Systolic blood pressure 2023-12-20 16:27:00 157 mm[Hg] [facility] Diastolic blood pressure 2023-12-20 16:27:00 97 mm[Hg] [facility] Heart rate 2023-12-20 16:25:00 59 /min [facility] Body temperature 2023-12-20 16:25:00 36.5 Shaye [facility] Body height 2023-12-20 16:25:00 185.4 [facility] 2023-12-20 16:25:00 67.132 kg [facility] BMI 2023-12-20 16:25:00 19.53 kg/m2 [facility] Oxygen saturation in Arterial blood by Pulse oximetry 2023-12-20 16:25:00 100 /min [facility] Body height 2023-12-15 19:46:00 185.4 [facility] Sy[facility] 2023-12-08 19:13:00 127 mm[Hg] [facility] Diastolic blood pressure 2023-12-08 19:13:00 90 mm[Hg] [facility] Heart rate 2023-12-08 19:13:00 71 /[facility] 2023-12-08 19:13:00 [facility]4 [facility] 2023-12-08 19:13:00 66.407 kg [facility] BMI 2023-12-08 19:13:00 19.32 kg/m2 [facility] Oxygen saturation in Arterial blood by Pulse oximetry 2023-12-08 19:13:00 99 /min [facility] Systolic blood pressure 2023-11-15 20:00:00 117 mm[Hg] [facility] Diastolic blood pressure 2023-11-15 20:00:00 83 mm[Hg] [facility] Heart rate 2023-11-15 20:00:00 68 /min [facility] Body temperature 2023-11-15 20:00:00 37 Shaye [facility] Respiratory rate 2023-11-15 20:00:00 18 /min [facility] Body height 2023-11-15 20:00:00 185.4 cm [facility] Body weight 2023-11-15 20:00:00 65.681 kg [facility] BMI 2023-11-15 20:00:00 19.10 kg/m2 [facility] Oxygen saturation in Arterial blood by Pulse oximetry 2023-11-15 20:00:00 99 /min [facility] Systolic blood pressure 2023-08-10 20:24:00 136 mm[Hg] [facility] Diastolic blood pressure 2023-08-10 20:24:00 89 mm[Hg] [facility] Heart rate 2023-08-10 20:24:00 66 /min [facility] Respiratory rate 2023-08-10 20:24:00 18 /min [facility] Body height 2023-08-10 20:24:00 185.4 cm [facility] Body weight 2023-08-10 20:24:00 66.225 kg [facility] BMI 2023-08-10 20:24:00 19.26 kg/m2 [facility] Oxygen saturation in Arterial blood by Pulse oximetry 2023-08-10 20:24:00 100 /min [facility] Systolic blood pressure 2023-04-26 19:47:00 166 mm[Hg] [facility] Diastolic blood pressure 2023-04-26 19:47:00 105 mm[Hg] [facility] Heart rate 2023-04-26 18:02:00 76 /min [facility] Body temperature 2023-04-26 17:59:00 35.83 Shaye [facility] Body height 2023-04-26 17:59:00 185.4 cm [facility] Body weight 2023-04-26 17:59:00 66.407 kg [facility] BMI 2023-04-26 17:59:00 19.32 kg/m2 [facility] Oxygen saturation in Arterial blood by Pulse oximetry 2023-04-26 17:59:00 81 /min [facility] Systolic blood pressure 2023-02-09 15:47:00 140 mm[Hg] [facility] Diastolic blood pressure 2023-02-09 15:47:00 97 mm[Hg] [facility] Heart rate 2023-02-09 15:47:00 83 /min [facility] Body temperature 2023-02-09 15:47:00 36.83 Shaye [facility] Respiratory rate 2023-02-09 15:47:00 14 /min [facility] Body height 2023-02-09 15:47:00 185.4 cm [facility] Body weight 2023-02-09 15:47:00 66.225 kg [facility] BMI 2023-02-09 15:47:00 19.26 kg/m2 [facility] Oxygen saturation in Arterial blood by Pulse oximetry 2023-02-09 15:47:00 100 /min [facility] Systolic blood pressure 2023-01-21 16:59:00 141 mm[Hg] [facility] Diastolic blood pressure 2023-01-21 16:59:00 96 mm[Hg] [facility] Heart rate 2023-01-21 16:55:00 70 /min [facility] Body temperature 2023-01-21 16:55:00 35.72 Shaye [facility] Body height 2023-01-21 16:55:00 185.4 cm [facility] Body weight 2023-01-21 16:55:00 66.497 kg [facility] BMI 2023-01-21 16:55:00 19.34 kg/m2 [facility] Oxygen saturation in Arterial blood by Pulse oximetry 2023-01-21 16:55:00 100 /min [facility] Systolic blood pressure 2022-10-18 20:42:00 164 mm[Hg] [facility] Diastolic blood pressure 2022-10-18 20:42:00 110 mm[Hg] [facility] Heart rate 2022-10-18 20:42:00 100 /min [facility] Respiratory rate 2022-10-18 20:42:00 20 /min [facility] Oxygen saturation in Arterial blood by Pulse oximetry 2022-10-18 20:42:00 100 /min [facility] Body temperature 2022-10-18 14:23:00 36.89 Shaye [facility] Body weight 2022-10-18 14:23:00 68.947 kg [facility] [facility] BMI 2022-10-18 14:23:00 20.05 kg/m2 [facility] Systolic blood pressure 2022-10-18 14:01:00 213 mm[Hg] [facility] Diastolic blood pressure 2022-10-18 14:01:00 142 mm[Hg] [facility] Heart rate 2022-10-18 13:42:00 73 /min [facility] Body temperature 2022-10-18 13:42:00 36.28 Shaye [facility] Respiratory rate 2022-10-18 13:42:00 16 /min [facility] Oxygen saturation in Arterial blood by Pulse oximetry 2022-10-18 13:42:00 99 /min [facility] Body height 2022-10-14 15:00:00 185.4 cm [facility] 2022-10-14 15:00:00 68.947 kg [facility] BMI 2022-10-14 15:00:00 20.05 kg/m2 [facility] Systolic blood pressure 2022-10-15 17:53:00 164 mm[Hg] [facility] Diastolic blood pressure 2022-10-15 17:53:00 124 mm[Hg] [facility] Heart rate 2022-10-15 17:49:00 72 /min [facility] Body temperature 2022-10-15 17:49:00 36.61 Shaye [facility] Respiratory rate 2022-10-15 17:49:00 18 /min [facility] Body height 2022-10-15 17:49:00 185.4 cm [facility] Body weight 2022-10-15 17:49:00 69.355 kg [facility] BMI 2022-10-15 17:49:00 20.17 kg/m2 [facility] Oxygen saturation in Arterial blood by Pulse oximetry 2022-10-15 17:49:00 100 /min [facility] Body height 2022-10-06 18:51:00 185.4 cm [facility] weight 2022-10-06 18:51:00 69.627 kg [facility] BMI 2022-10-06 18:51:00 20.25 kg/m2 [facility] Body height 2022-08-12 19:36:00 185.4 cm [facility] Body weight 2022-08-12 19:36:00 70.308 kg [facility] BMI 2022-08-12 19:36:00 20.45 kg/m2 [facility] Systolic blood pressure 2022-07-08 20:43:00 142 mm[Hg] [facility] Diastolic blood pressure 2022-07-08 20:43:00 98 mm[Hg] [facility] Heart rate 2022-07-08 20:30:00 91 /min [facility] Res[facility] rate 2022-07-08 20:30:00 18 /min [facility] Body height 2022-07-08 20:30:00 182.9 cm [facility] Body weight 2022-07-08 20:30:00 69.4 kg [facility] BMI 2022-07-08 20:30:00 20.75 kg/m2 [facility] Oxygen saturation in Arterial blood by Pulse oximetry 2022-07-08 20:30:00 99 /min [facility] Systolic blood pressure 2022-05-26 21:07:00 161 mm[Hg] [facility] Diastolic blood pressure 2022-05-26 21:07:00 106 mm[Hg] [facility] Heart rate 2022-05-26 21:07:00 70 /min [facility] Oxygen saturation in Arterial blood by Pulse oximetry 2022-05-26 21:07:00 98 /min [facility] Respiratory rate 2022-05-26 20:58:00 17 /min [facility] Body height 2022-05-26 20:58:00 180.3 cm [facility] Body weight 2022-05-26 20:58:00 66.497 kg [facility] BMI 2022-05-26 20:58:00 20.45 kg/m2 [facility] Systolic blood pressure 2022-05-10 21:11:00 230 mm[Hg] [facility] Diastolic blood pressure 2022-05-10 21:11:00 140 mm[Hg] [facility] Heart rate 2022-05-10 21:11:00 80 /min [facility] Body height 2022-05-10 21:10:00 185.4 cm [facility] Body weight 2022-05-10 21:10:00 70.308 kg [facility] BMI 2022-05-10 21:10:00 20.45 kg/m2 [facility] Systolic blood pressure 2022-02-12 15:05:00 148 mm[Hg] [facility] Diastolic blood pressure 2022-02-12 15:05:00 92 mm[Hg] [facility] Heart rate 2022-02-12 14:58:00 88 /min [facility] Body temperature 2022-02-12 14:58:00 36.67 Shaye [facility] Respiratory rate 2022-02-12 14:58:00 18 /min [facility] Body height 2022-02-12 14:58:00 185.4 cm [facility] Body weight 2022-02-12 14:58:00 70.308 kg [facility] BMI 2022-02-12 14:58:00 20.45 kg/m2 [facility] Oxygen saturation in Arterial blood by Pulse oximetry 2022-02-12 14:58:00 98 /min [facility] Systolic blood pressure 2022-10-18 20:42:00 164 mm[Hg] [facility] Diastolic blood pressure 2022-10-18 20:42:00 110 mm[Hg] [facility] Heart rate 2022-10-18 20:42:00 100 /min [facility] Respiratory rate 2022-10-18 20:42:00 20 /min [facility] Oxygen saturation in Arterial blood by Pulse oximetry 2022-10-18 20:42:00 100 /min [facility] Body temperature 2022-10-18 14:23:00 36.89 Shaye [facility] Body weight 2022-10-18 14:23:00 68.947 kg [facility] BMI 2022-10-18 14:23:00 20.05 kg/m2 [facility] Body height 2022-10-15 17:49:00 185.4 cm [facility] Procedures Procedure Date / Time Performed Performing Clinician Source TDAP VACCINE, >11 YRS, IM 2024-11-09 16:49:47 Luiz Khan [facility] EKG-12 LEAD 2023-12-23 20:45:16 Doctor Unass igned, [place] [facility] XR CHEST 2 VW 2023-12-20 14:53:00 [facility]kh [facility] INSURANCE CORRESPONDENCE 2023-06-22 06:01:00 Doc tor Unassigned, [place] [facility] PATIENT QUESTIONNAIRE 2023-04-26 05:01:00 Doctor Unassigned, [place] [facility] CT CERVICAL SPINE WO CONTRAST 2023-02-09 16:45:[address] [facility] HEAD WO CONTRAST 2023-02-09 16:45:[address] [facility] [address] THORACIC SPINE WO CONTRAST 2023-02-09 16:45:56 Loretta Chaparro [facility] CREATINE KINASE 2023-02-09 16:18:00 Loretta Chaparro [facility] TROPONIN I 2023-02-09 16:18:00 Loretta Chaparro [facility] COMP. METABOLIC PANEL (59413) 2023-02-09 16:18:00 Loretta Chaparro [facility] CBC WITH DIFF 2023-02-09 16:18:00 Loretta Chaparro [facility] URINALYSIS 2023-02-09 16:18:00 Loretta Chaparro [facility] CONSENT/REFUSAL FOR DIAGNOSIS AND TREATMENT 2023-02-09 15:34:48 Doctor Unassigned, [place] [facility] VITAMIN B12, LEVEL 2023-01-21 19:05:00 Andrade Sherman [facility] RENAL PANEL 2023-01-21 19:05:00 Luiz Sherman [facility] COMP. METABOLIC PANEL ([id number]) 2023-01-21 19:05:00 Luiz Sherman [facility] INTACT PTH CALCIUM GROUP 2023-01-21 19:05:00 Lane [facility] PROTEIN CREAT RATIO URINE RANDOM 2023-01-21 19:05:00 Luiz Sherman [facility] HUMAN IMMUNODEFICIENCY VIRUS 1 (HIV-1) BY QUANTITATIVE NAAT 2023-01-21 19:05:00 Luiz Sherman [facility] ASSIGNMENT OF BENEFITS 2023-01-21 18:43:39 Docto r Unassigned, [place] [facility] TROPONIN I 2022-10-18 15:01:00 Efra Wells [facility] BASIC METABOLIC PANEL (NA, K, CL, CO2, GLUCOSE, BUN, CREATININE, CA) 2022-10-18 15:01:00 Efra Wells [facility] CBC WITH DIFF 2022-10-18 15:01:[address] [facility] CBC WITH DIFF 2022-10-18 15:01:[address] [facility] BASIC METABOLIC PANEL (NA, K, CL, CO2, GLUCOSE, BUN, CREATININE, CA) 2022-10-18 15:01:00 Efra Wells [facility] TROPONIN I 2022-10-18 15:01:00 Efra Wells [facility] HB ECG ROUTINE & RHYTHM STRIP 2022-10-18 15:00:07 Efra Wells [facility] HB ECG ROUTINE & RHYTHM STRIP 2022-10-18 15:00:07 Efra Wells [facility] CONSENT/REFUSAL FOR DIAGNOSIS AND TREATMENT 2022-10-18 14:15:57 Doctor Unassigned, [place] [facility] PNEUMOCOCCAL 20 CONJUGATE (PREVNAR 20) VACCINE 2022-10-15 18:29:41 Luiz Sherman [facility] PNEUMOCOCCAL 20 CONJUGATE (PREVNAR 20) VACCINE 2022-10-15 18:29:41 Luiz Sherman [facility] URINALYSIS 2022-10-15 17:25:00 Hasmukh Barnhart [facility] CBC WITH DIFF 2022-10-15 17:20:00 [facility] BASIC METABOLIC PANEL (NA, K, CL, CO2, GLUCOSE, BUN, CREATININE, CA) 2022-10-15 17:20:00 Hasmukh Barnhart [facility] CONSENT/REFUSAL FOR DIAGNOSIS AND TREATMENT 2022-10-15 17:11:24 Doctor Unassigned, [place] [facility] ASSIGNMENT OF BENEFITS 2022-10-15 17:11:04 Docto r Unassigned, [place] [facility] ASSIGNMENT OF BENEFITS 2022-10-15 17:11:04 Docto r Unassigned, [place] [facility] EXTERNAL PROVIDER RECORDS 2022-09-24 05:01:00 Do ctor Unassigned, [place] [facility] EXTERNAL PROVIDER RECORDS 2022-09-24 05:01:00 Do ctor Unassigned, [place] [facility] EXTERNAL PROVIDER RECORDS 2022-09-24 05:01:00 Do ctor Unassigned, [place] [facility] XR HIP 1 VW LEFT 2022-09-03 16:13:22 [facility]o [facility] 1 VW LEFT 2022-09-03 16:13:22 Amparo Little Un [facility] CONSENT/REFUSAL FOR DIAGNOSIS AND TREATMENT 2022-09-03 15:56:49 Doctor Unassigned, [place] [facility] CONSENT/REFUSAL FOR DIAGNOSIS AND TREATMENT 2022-09-03 15:56:12 Doctor Unassigned, [place] [facility] CONSENT/REFUSAL FOR DIAGNOSIS AND TREATMENT 2022-09-03 15:56:12 Doctor Unassigned, [place] [facility] URINALYSIS 2022-08-27 17:42:00 Hasmukh Barnhart [facility] EKG-12 LEAD 2022-08-27 14:44:43 Doctor Unass igned, [place] [facility] XR CHEST 2 VW 2022-08-27 14:33:30 [facility]ST 2 VW 2022-08-27 14:33:30 Hasmukh Barnhart [facility] FREE T4 2022-08-27 14:16:00 Luiz Sherman [facility] THYROID STIMULATING HORMONE 2022-08-27 14:16:00 Luiz Sherman [facility] COMP. METABOLIC PANEL ([id number]) 2022-08-27 14:16:00 Lane [facility] LIPID PANEL ([id number])(TOTAL CHOLESTEROL, TRIGLYCERIDES, HDL) 2022-08-27 14:16:00 Luiz Sherman [facility] CBC WITH DIFF 2022-08-27 14:16:00 Luiz Sherman [facility] GLYCOSYLATED HEMOGLOBIN (A1C) 2022-08-27 14:16:00 Luiz Sherman [facility] HB ABO GROUPING 2022-08-27 14:16:00 Hasmukh Barnhart [facility] FREE T3 2022-08-27 14:16:[address] [facility] HB ABO GROUPING 2022-08-27 14:16:00 Hasmukh Barnhart [facility] CBC WITH DIFF 2022-08-27 14:16:00 Luiz Sherman [facility] COMP. METABOLIC PANEL ([id number]) 2022-08-27 14:16:00 Luiz Sherman [facility] FREE T3 2022-08-27 14:16:[address] [facility] FREE T4 2022-08-27 14:16:[address] [facility] GLYCOSYLATED HEMOGLOBIN (A1C) 2022-08-27 14:16:00 Lane [facility] LIPID PANEL ([id number])(TOTAL CHOLESTEROL, TRIGLYCERIDES, HDL) 2022-08-27 14:16:00 Lane [facility] VITAMIN D, 25-OH 2022-08-27 14:16:00 Lane [facility] THYROID STIMULATING HORMONE 2022-08-27 14:16:00 Lane [facility] HUMAN IMMUNODEFICIENCY VIRUS 1 (HIV-1) BY QUANTITATIVE NAAT 2022-08-27 14:16:00 Lane [facility] EKG (SCANNED DOCUMENTS) 2022-08-27 06:01:00 Doct or Unassigned, [place] [facility] EXTERNAL PROVIDER RECORDS 2022-08-13 06:01:00 Do ctor Unassigned, [place] [facility] DSU PRE-OP 2022-08-12 06:01:00 Doctor Unass igned, [place] [facility] DSU PRE-OP 2022-08-12 06:01:00 Doctor Unass igned, [place] [facility] DEXA PERIPHERAL (FOREARM) 2022-07-12 19:03:12 Luiz Khan [facility] DEXA AXIAL (HIP AND SPINE) 2022-07-12 19:02:54 Rambo freitas [facility] COMP. METABOLIC PANEL ([id number]) 2022-02-12 16:05:00 [facility] LIPID PANEL ([id number])(TOTAL CHOLESTEROL, TRIGLYCERIDES, HDL) 2022-02-12 16:05:00 [facility] HEPATITIS B SURFACE ANTIBODY 2022-02-12 16:05:00 [facility] HEPATITIS B SURFACE ANTIGEN 2022-02-12 16:05:00 [facility] HBC ANTIBODY (IGM & IGG) 2022-02-12 16:05:00 Joseph Fierro [facility] DAY SURGERY - [place] 2017-11-01 05:01:00 Doctor Unassigned, [place] [facility] Encounters Start Date/Time End Date/Time Encounter Type Admission Type Attending [facility] Facility Care Department Encounter ID Source 2023-12-13 09:55:24 Outpatient HASMUKH BRASHER CRAIG [facility] [id number] [facility] 2022-08-26 10:15:59 Outpatient HASMUKH BRASHER [facility] [id number] [facility] 2021-05-04 21:06:25 Emergency [facility] [id number] [facility] 2025-03-15 14:00:00 2025-03-15 14:41:38 Office Visit Stacy Mittal [place] [id number] 350.1.13.10 4.2.7.2.686 [id number] [facility] 2025-02-27 13:00:00 2025-02-27 13:44:57 Office Visit Luiz Hill [facility] 1.2.840.114 350.1.13.10 4.2.7.2.686 [id number] [facility] 2025-02-27 13:00:00 2025-02-27 13:00:00 Outpatient LUIZ HILL [facility] [id number] [facility] 2024-11-09 11:20:00 2024-11-09 12:03:39 Outpatient R LUIZ SHERMAN [facility] [id number] [facility] 2024-11-09 11:20:00 2024-11-09 12:03:39 Office Visit Luiz Sherman [facility] 1.2.840.114 350.1.13.10 4.2.7.2.686 [id number] [facility] 2024-11-05 00:00:00 2024-11-05 16:53:28 [facility] 1.2.840.114 350.1.13.10 4.2.7.2.686 [id number] [facility] 2024-11-02 10:30:00 2024-11-02 10:45:00 Hand Slitter Visit 2, Adc Lab Luiz Sherman 2, [facility] 1.2.840.114 350.1.13.10 4.2.7.2.686 [id number] [facility] 2024-11-02 10:30:00 2024-11-02 10:30:00 Outpatient R LUIZ SHERMAN [facility] [id number] [facility] 2017-01-07 00:00:00 2024-10-25 22:29:05 Refill Felice Payne [facility] 1.2.840.114 350.1.13.10 4.2.7.2.686 [id number] [facility] 2018-05-02 00:00:00 2024-10-25 22:17:35 Refill Marcus Jauregui [facility] 1.2.840.114 350.1.13.10 4.2.7.2.686 [id number] [facility] 2024-10-22 00:00:00 2024-10-23 16:49:37 Refill Luiz Sherman [facility] 1.2.840.114 350.1.13.10 4.2.7.2.686 [id number] [facility] 2023-12-23 00:00:00 2024-08-18 07:28:59 Orders Only Doctor Unassigned, [place] Doctor Unassigned, [place] [facility] 1.2.840.114 350.1.13.10 4.2.7.2.686 [id number] [facility] 2017-11-01 00:00:00 2024-08-18 03:20:03 Orders Only Doctor Unassigned, [place] Doctor Unassigned, [place] [facility] 1.2840.114 350.1.13.10 4.2.7.2.686 [id number] [facility] 2024-08-09 10:00:00 2024-08-09 10:42:19 Outpatient R LUIZ SHERMAN [facility] [id number] [facility] 2024-08-09 10:00:00 2024-08-09 10:42:19 Office Visit Luiz Sherman [facility] 1.2.840.114 350.1.13.10 4.2.7.2.686 [id number] [facility] 2024-07-27 10:45:00 2024-07-27 11:00:00 Hand Slitter Visit 2, Adc Lab Luiz Sherman 2, Adc Lab [facility] 1.2.840.114 350.1.13.10 4.2.7.2.686 [id number] [facility] 2024-07-27 10:45:00 2024-07-27 10:45:00 Outpatient R LUIZ SHERMAN [facility] [id number] [facility] 2024-07-26 08:30:00 2024-07-26 08:30:00 Outpatient R [facility] [id number] [facility] 2024-05-11 00:00:00 2024-05-11 16:06:58 Refill Luiz Sherman [facility] 1.2.840.114 350.1.13.10 4.2.7.2.686 [id number] [facility] 2024-05-11 15:00:00 2024-05-11 15:40:41 Outpatient R LUIZ SHERMAN [facility] [id number] [facility] 2024-05-11 15:00:00 2024-05-11 15:40:41 Office Visit CodeyLuiz gaines [facility] 1.2.840.114 350.1.13.10 4.2.7.2.686 [id number] [facility] 2024-04-16 00:00:00 2024-04-16 15:41:42 [facility] 1.2.840.114 350.1.13.10 4.2.7.2.686 [id number] [facility] 2024-04-12 08:40:00 2024-04-12 08:40:00 Outpatient R LUIZ SHERMAN [facility] [id number] [facility] 2024-03-19 00:00:00 2024-03-19 20:36:[address] [facility] 1.2.840.114 350.1.13.10 4.2.7.2.686 [id number] [facility] 2024-02-29 15:00:00 2024-02-29 15:00:00 Outpatient R LUIZ SHERMAN [facility] [id number] [facility] 2024-02-22 00:00:00 2024-02-22 14:41:59 Refill CodeyjennaLuiz caruso [facility] 1..840.114 350.1.13.10 4.2.7.2.686 [id number] [facility] 2024-02-09 00:00:00 2024-02-10 09:53:34 Telephone Hasmukh Barnhart [facility] 1..840.114 350.1.13.10 4.2.7.2.686 [id number] [facility] 2024-01-24 09:00:00 2024-01-24 09:00:00 Outpatient R HASMUKH BARNHART [facility] [id number] [facility] 2024-01-17 00:00:00 2024-01-17 10:17:03 Telephone Hasmukh Barnhart [facility] 1.2.840.114 350.1.13.10 4.2.7.2.686 [id number] [facility] 2024-01-11 15:30:00 2024-01-11 15:30:00 Outpatient R HASMUKH BARNHART [facility] [id number] [facility] 2024-01-02 00:00:00 2024-01-03 08:42:[address] [facility] 1..840.114 350.1.13.10 4.2.7.2.686 [id number] [facility] 2023-12-30 00:00:00 2024-01-03 08:18:35 Telephone Hasmukh Barnhart [facility] 1.2.840.114 350.1.13.10 4.2.7.2.686 [id number] [facility] 2024-01-02 15:30:00 2024-01-02 15:30:00 Outpatient R HASMUKH BARNHART [facility] [id number] [facility] 2023-12-20 09:35:54 2023-12-20 23:59:00 Hospital Encounter Hasmukh Barnhart [facility] 1.2840.114 350.1.13.10 4.2.7.2.686 [id number] [facility] 2023-12-20 11:00:00 2023-12-20 11:45:42 Outpatient R LUIZ SHERMAN [facility] [id number] [facility] 2023-12-20 11:00:00 2023-12-20 11:45:42 Office Visit Luiz Sherman [facility] 1.2.840.114 350.1.13.10 4.2.7.2.686 [id number] [facility] 2023-12-20 10:45:00 2023-12-20 11:00:00 Hand Slitter Visit Pob, Adc Lab Main Hasmukh Barnhart [facility] 1.2.840.114 350.1.13.10 4.2.7.2.686 [id number] [facility] 2023-12-20 09:34:56 2023-12-20 09:34:56 Hospital Encounter Hasmukh Barnhart [facility] 1.2.840.114 350.1.13.10 4.2.7.2.686 [id number] [facility] 2023-12-15 15:00:00 2023-12-15 15:43:27 Outpatient ZEESHAN MONGE [facility] [id number] [facility] 2023-12-15 15:00:00 2023-12-15 15:43:27 Office Visit Hiram Horta [facility] 1.2.840.114 350.1.13.10 4.2.7.2.686 [id number] [facility] 2023-12-09 00:00:00 2023-12-09 11:46:10 Prep For Surgery Hasmukh Barnhart [facility] 1.2.840.114 350.1.13.10 4.2.7.2.686 [id number] [facility] 2023-12-08 14:12:50 2023-12-08 23:59:00 Outpatient [facility] [id number] [facility] 2023-12-08 14:12:50 2023-12-08 23:59:00 Hospital Encounter Hasmukh Barnhart [facility] 1.2.840.114 350.1.13.10 4.2.7.2.686 [id number] [facility] 2023-12-08 14:30:00 2023-12-08 14:47:24 Office Visit Hasmukh Barnhart [facility] 1.2.840.114 350.1.13.10 4.2.7.2.686 [id number] [facility] 2023-12-01 16:15:00 2023-12-01 16:15:00 Outpatient R HASMUKH BARNHART [facility] [id number] [facility] 2023-11-25 00:00:00 2023-11-25 14:22:08 Luiz Garcia [facility] 1.2.840.114 350.1.13.10 4.2.7.2.686 [id number] [facility] 2023-11-25 09:45:00 2023-11-25 09:45:00 Outpatient R OBEY HASMUKHHASMUKH HAIR [facility] [id number] [facility] 2023-11-15 14:40:00 2023-11-15 15:38:32 Outpatient R CODEYAZUL LUIZ [facility] [id number] [facility] 2023-11-15 14:40:00 2023-11-15 15:38:32 Office Visit CodeyjennajorgeLuiz freitas [facility] 1.2.840.114 350.1.13.10 4.2.7.2.686 [id number] [facility] 2023-11-07 11:15:00 2023-11-07 11:30:00 Hand Slitter Visit Pob, Adc Lab Main Luiz Sherman [facility] 1.2.840.114 350.1.13.10 4.2.7.2.686 [id number] [facility] 2023-11-07 11:15:00 2023-11-07 11:15:00 Outpatient R CODEYJENNALOWELL LUIZ [facility] [id number] [facility] 2023-11-04 00:00:00 2023-11-04 00:00:00 Telephone Luiz Sherman [facility] 1.2.840.114 350.1.13.10 4.2.7.2.686 [id number] [facility] 2023-08-10 15:20:00 2023-08-10 15:23:55 Outpatient R CODEYJENNALOWELL LUIZ [facility] [id number] [facility] 2023-08-10 15:20:00 2023-08-10 15:23:55 Office Visit Luiz Sherman [facility] 1.2.840.114 350.1.13.10 4.2.7.2.686 [id number] 044 [id number] [facility] 2023-06-22 00:00:00 2023-06-22 00:00:00 Telephone Luiz Sherman [facility] 1.2.840.114 350.1.13.10 4.2.7.2.686 [id number] 044 [id number] [facility] 2023-06-22 00:00:00 2023-06-22 00:00:00 Orders Only Doctor Unassigned, [place] [facility] 1.2.840.114 350.1.13.10 4.2.7.2.686 [id number] [facility] 2023-06-15 00:00:00 2023-06-15 00:00:00 Telephone Luiz Sherman [facility] 1.2.840.114 350.1.13.10 4.2.7.2.686 [id number] 044 [id number] [facility] 2023-06-14 00:00:00 2023-06-14 00:00:00 Refill Luiz Sherman [facility] 1.2.840.114 350.1.13.10 4.2.7.2.686 [id number] [id number] [facility] 2023-05-19 00:00:00 2023-05-19 00:00:00 Telephone Luiz Sherman [facility] 1.2.840.114 350.1.13.10 4.2.7.2.686 [id number] 044 [id number] [facility] 2023-05-16 00:00:00 2023-05-16 00:00:00 Refill Luiz Sherman [facility] 1.2.840.114 350.1.13.10 4.2.7.2.686 [id number] [id number] [facility] 2023-04-26 13:20:00 2023-04-26 14:48:[address] [facility] [id number] [facility] 2023-04-26 13:20:00 2023-04-26 14:48:37 Office Visit Luiz Sherman [facility] 1.2.840.114 350.1.13.10 4.2.7.2.686 [id number] 044 [id number] [facility] 2023-04-26 00:00:00 2023-04-26 00:00:00 Orders Only Doctor Unassigned, [place] [facility] 1.2.840.114 350.1.13.10 4.2.7.2.686 [id number] [id number] [facility] 2023-03-21 00:00:00 2023-03-21 00:00:00 Refill Luiz Sherman [facility] 1.2.840.114 350.1.13.10 4.2.7.2.686 [id number] 044 [id number] [facility] 2023-02-24 00:00:00 2023-02-24 00:00:00 Telephone Luiz Sherman [facility] 1.2.840.114 350.1.13.10 4.2.7.2.686 [id number] 044 [id number] [facility] 2023-02-18 10:20:00 2023-02-18 10:20:[address] [facility] [id number] [facility] 2023-02-15 00:00:00 2023-02-15 00:00:00 Telephone Luiz Sherman [facility] 1.2.840.114 350.1.13.10 4.2.7.2.686 [id number] [facility] 2023-02-09 10:49:00 2023-02-09 13:23:00 Emergency X [facility] [id number] [facility] 2023-02-09 10:49:00 2023-02-09 13:23:00 [facility] 1.2.840.114 350.1.13.10 4.2.7.2.686 [id number] 084 [id number] [facility] 2023-01-28 00:00:00 2023-01-28 00:00:00 Telephone Luiz Sherman [facility] 1.2.840.114 350.1.13.10 4.2.7.2.686 [id number] 044 [id number] [facility] 2023-01-28 00:00:00 2023-01-28 00:00:00 Telephone Luiz Sherman [facility] 1.2.840.114 350.1.13.10 4.2.7.2.686 [id number] 044 [id number] [facility] 2023-01-27 13:40:00 2023-01-27 13:40:00 Outpatient R LUIZ [facility]ERMAN [facility] [id number] [facility] 2023-01-21 13:45:00 2023-01-21 14:00:00 Hand Slitter Visit Pob, [facility] Lab Main Luiz Sherman [facility] 1.2.840.114 350.1.13.10 4.2.7.2.686 [id number] [facility] 2023-01-21 11:00:00 2023-01-21 13:33:20 Outpatient R LUIZ [facility]MAN [facility] [id number] [facility] 2023-01-21 11:00:00 2023-01-21 13:33:20 Office Visit Luiz Sherman [facility] 1.2.840.114 350.1.13.10 4.2.7.2.686 [id number] [id number] [facility] 2023-01-21 00:00:00 2023-01-21 00:00:00 Orders Only Doctor Unassigned, [place] [facility] 1.2.840.114 350.1.13.10 4.2.7.2.686 [id number] 009 [id number] [facility] 2022-12-17 00:00:00 2022-12-17 00:00:00 Telephone Luiz Sherman [facility] 1.2.840.114 350.1.13.10 4.2.7.2.686 [id number] [facility] 2022-11-30 00:00:00 2022-11-30 00:00:00 Refill Luiz Sherman [facility] 1.2.840.114 350.1.13.10 4.2.7.2.686 [id number] 044 [id number] [facility] 2022-11-01 15:00:00 2022-11-01 15:00:00 Outpatient AMPARO CEDILLO [facility] [id number] [facility] 2022-10-21 14:00:00 2022-10-21 14:00:00 Outpatient AMPARO CEDILLO [facility] [id number] [facility] 2022-10-19 00:00:00 2022-10-19 00:00:00 Telephone [facility] 1..840.114 350.1.13.10 4.2.7.2.686 [id number] [facility] 2022-10-18 09:24:00 2022-10-18 16:28:00 Emergency X EFRA WELLS [facility] ERT [id number] [facility] 2022-10-18 09:24:00 2022-10-18 16:28:00 Emergency Migel Wellsio C 1.2.840.1 23813.1.1 3.104.2.7 .3.883206 .8 [id number] [facility] 2022-10-18 09:18:50 2022-10-18 09:18:50 Anesthesia Event Alex Cochran Brian 1..840.1 53209.1.1 3.104.2.7 .3.523184 .8 [id number] [facility] 2022-10-18 08:26:00 2022-10-18 09:07:00 Outpatient R HASMUKH BARNHART [facility] SOR [id number] [facility] 2022-10-18 08:26:00 2022-10-18 09:07:00 Hospital Encounter Hasmukh Barnhart L 1.2.840.1 69046.1.1 3.104.2.7 .3.215153 .8 [id number] [facility] 2022-10-15 13:00:00 2022-10-15 13:29:40 Outpatient R LUIZ [facility] [id number] [facility] 2022-10-15 13:00:00 2022-10-15 13:29:40 Office Visit Luiz Sherman [facility] 1..840.114 350.1.13.10 4.2.7.2.686 [id number] 044 [id number] [facility] 2022-10-15 12:15:00 2022-10-15 12:30:00 Hand Slitter Visit Hasmukh Barnhart Pob, [facility] Main 1.2.840.1 42186.1.1 3.104.2.7 .3.818583 .8 [id number] [facility] 2022-10-15 00:00:00 2022-10-15 00:00:00 Orders Only Doctor Unassigned, [place] 1.2.840.1 09525.1.1 3.104.2.7 .3.988226 .8 [id number] [facility] 2022-10-14 00:00:00 2022-10-14 00:00:00 Travel 1.2.840.1 06862.1.1 3.104.2.7 .3.992613 .8 1.2.840.114 350.1.13.10 4.2.7.3.698 084.8 [id number] [facility] 2022-10-08 14:00:00 2022-10-08 14:00:00 Outpatient R LUIZ [facility]MAN [facility] [id number] [facility] 2022-10-06 14:15:00 2022-10-06 14:16:51 Office Visit Amparo Little S 1.2.840.1 82437.1.1 3.104.2.7 .3.987828 .8 [id number] [facility] 2022-10-06 14:15:00 2022-10-06 14:15:00 Outpatient R AMPARO LITTLE [facility] [id number] [facility] 2022-10-06 00:00:00 2022-10-06 00:00:00 Prep For Surgery Hasmukh Barnhart 1.2.840.1 46736.1.1 3.104.2.7 .3.675718 .8 [id number] [facility] 2022-10-06 00:00:00 2022-10-06 00:00:00 Travel 1.2.840.1 80435.1.1 3.104.2.7 .3.475935 .8 1.2.840.114 350.1.13.10 4.2.7.3.698 084.8 [id number] [facility] 2022-09-25 00:00:00 2022-09-25 00:00:00 Telephone Luiz Sherman 1.2.840.1 09238.1.1 3.104.2.7 .3.835490 .8 [id number] [facility] 2022-09-24 00:00:00 2022-09-24 00:00:00 Orders Only Doctor Unassigned, [place] 1.2.840.1 26727.1.1 3.104.2.7 .3.650822 .8 [id number] [facility] 2022-09-24 00:00:00 2022-09-24 00:00:00 Telephone Hasmukh Barnhart 1.2.840.1 31697.1.1 3.104.2.7 .3.017993 .8 [id number] [facility] 2022-09-23 00:00:00 2022-09-23 00:00:00 Telephone Hasmukh Barnhart 1.2.840.1 05519.1.1 3.104.2.7 .3.620374 .8 [id number] [facility] 2022-09-09 13:30:00 2022-09-09 13:30:00 Outpatient AMPARO CEDILLO [facility] [id number] [facility] 2022-09-06 00:00:00 2022-09-06 00:00:00 Telephone Hasmukh Barnhart 1.2.840.1 39368.1.1 3.104.2.7 .3.179731 .8 [id number] [facility] 2022-09-03 09:57:24 2022-09-03 23:59:00 Outpatient AMPARO CEDILLO [facility] [id number] [facility] 2022-09-03 09:57:24 2022-09-03 23:59:00 Hospital Encounter Amparo Little 1.2.840.1 68353.1.1 3.104.2.7 .3.174252 .8 [id number] [facility] 2022-09-03 00:00:00 2022-09-03 00:00:00 Outpatient R HASMUKH BARNHART [facility] [id number] [facility] 2022-09-03 00:00:00 2022-09-03 00:00:00 Orders Only Doctor Unassigned, [place] 1.2.840.1 52138.1.1 3.104.2.7 .3.448038 .8 [id number] [facility] 2022-08-31 00:00:00 2022-08-31 00:00:00 Telephone Luiz Sherman 1.2.840.1 25073.1.1 3.104.2.7 .3.576353 .8 [id number] [facility] 2022-08-30 23:59:59 2022-08-30 23:59:59 Anesthesia Event John [place] 1.2.840.1 35115.1.1 3.104.2.7 .3.021425 .8 [id number] [facility] 2022-08-27 07:47:37 2022-08-27 23:59:00 Hospital Encounter Hasmukh Barnhart 1.2.840.1 71742.1.1 3.104.2.7 .3.903476 .8 [id number] [facility] 2022-08-27 10:15:00 2022-08-27 11:45:41 Outpatient R HASMUKH BARNHART [facility] [id number] [facility] 2022-08-27 10:15:00 2022-08-27 11:45:41 Ancillary Visit Hasmukh Barnhart Meisha 1.2.840.1 42795.1.1 3.104.2.7 .3.008933 .8 [id number] [facility] 2022-08-27 08:00:00 2022-08-27 08:15:00 Hand Slitter Visit Hasmukh Barnhart Pob, [facility] Main 1.2.840.1 62459.1.1 3.104.2.7 .3.589153 .8 [id number] [facility] 2022-08-27 07:46:22 2022-08-27 07:46:22 Outpatient R HASMUKH BARNHART [facility] [id number] [facility] 2022-08-27 07:46:22 2022-08-27 07:46:22 Hospital Encounter Hasmukh Barnhart 1.2.840.1 36432.1.1 3.104.2.7 .3.012748 .8 [id number] [facility] 2022-08-27 00:00:00 2022-08-27 00:00:00 Letter (Out) Doctor Unassigned, [place] 1.2.840.1 59397.1.1 3.104.2.7 .3.560696 .8 [id number] [facility] 2022-08-26 00:00:00 2022-08-26 00:00:00 Travel 1.2.840.1 85553.1.1 3.104.2.7 .3.093855 .8 1.2.840.114 350.1.13.10 4.2.7.3.698 084.8 [id number] [facility] 2022-08-12 14:15:00 2022-08-12 14:40:50 Outpatient R AMPARO LITTLE [facility] [id number] [facility] 2022-08-12 14:15:00 2022-08-12 14:40:50 Office Visit Amparo Little S 1.2.840.1 57779.1.1 3.104.2.7 .3.394253 .8 [id number] [facility] 2022-08-12 00:00:00 2022-08-12 00:00:00 Prep For Surgery Hasmukh Barnhart 1.2.840.1 58723.1.1 3.104.2.7 .3.364231 .8 [id number] [facility] 2022-08-12 00:00:00 2022-08-12 00:00:00 Orders Only Doctor Unassigned, [place] 1.2.840.1 55123.1.1 3.104.2.7 .3.953372 .8 [id number] [facility] 2022-08-12 00:00:00 2022-08-12 00:00:00 Travel 1.2.840.1 81728.1.1 3.104.2.7 .3.918482 .8 1.2840.114 350.1.13.10 4.2.7.3.698 084.8 [id number] [facility] 2022-08-02 15:00:00 2022-08-02 15:00:00 Outpatient R CANDICE HURLEY [facility] [id number] [facility] 2022-07-12 12:36:11 2022-07-12 23:59:[address] [facility] 1.2840.114 350.1.13.10 4.2.7.2.686 [id number] [facility] 2022-07-12 12:35:24 2022-07-12 12:35:[address] [facility] [id number] [facility] 2022-07-12 12:35:24 2022-07-12 12:35:[address] [facility] 1.2840.114 350.1.13.10 4.2.7.2.686 [id number] [facility] 2022-07-08 14:20:00 2022-07-08 15:05:14 Outpatient R LUIZ SHERMAN [facility] [id number] [facility] 2022-07-08 14:20:00 2022-07-08 15:05:14 Office [facility] 1.2.840.114 350.1.13.10 4.2.7.2.686 [id number] 044 [id number] [facility] 2022-07-08 00:00:00 2022-07-08 00:00:00 Telephone [facility] 1.2.840.114 350.1.13.10 4.2.7.2.686 [id number] 044 [id number] [facility] 2022-05-26 14:20:00 2022-05-26 15:44:12 Outpatient R REGINA GILMAN [facility] [id number] [facility] 2022-05-26 14:20:00 2022-05-26 15:44:12 Office Visit Regina Gilman [facility] 1.2.840.114 350.1.13.10 4.2.7.2.686 [id number] 059 [id number] [facility] 2022-05-19 13:40:00 2022-05-19 13:40:00 Outpatient R KALINAREGINA [facility] [id number] [facility] 2022-05-19 10:40:00 2022-05-19 10:40:00 Outpatient R KALINA REGINA [facility] [id number] [facility] 2022-05-10 15:15:00 2022-05-10 16:59:31 Outpatient R AMPARO LITTLE [facility] [id number] [facility] 2022-05-10 15:15:00 2022-05-10 15:45:00 Office Visit Amparo Little [facility] 1.840.114 350.1.13.10 4.2.7.2.686 [id number] [facility] 2022-05-07 10:30:00 2022-05-07 10:30:00 Outpatient R AMPARO LITTLE [facility] [id number] [facility] 2022-04-07 00:00:00 2022-04-07 00:00:00 Theresa Shultz [facility] 1.840.114 350.1.13.10 4.2.7.2.686 [id number] 089 [id number] [facility] 2022-02-12 11:30:00 2022-02-12 11:45:00 Hand Slitter Visit [facility] 1..114 350.1.13.10 4.2.7.2.686 [id number] [facility] 2022-02-12 09:30:00 2022-02-12 10:00:00 Office Visit [facility] 1.84.114 350.1.13.10 4.2.7.2.686 [id number] 089 [id number] [facility] 2022-02-12 09:30:00 2022-02-12 09:30:00 [id number] 2022-02-12 00:00:00 2022-02-12 00:00:00 Orders Only Doctor Unassigned, [place] [facility] 1.284.114 350.1.13.10 4.2.7.2.686 [id number] [id number] [facility] 2022-01-25 00:00:00 2022-01-25 00:00:00 Katia Murilloe, Theresa [facility] 1.2.840.114 350.1.13.10 4.2.7.2.686 [id number] 089 [id number] [facility] 2021-12-21 00:00:00 2021-12-21 [facility] 1.2.840.114 350.1.13.10 4.2.7.2.686 [id number] 089 [id number] [facility] 2021-11-20 00:00:00 2021-11-20 00:00[facility]00 [facility] 1.2.840.114 350.1.13.10 4.2.7.2.686 [id number] 089 [id number] [facility] 2021-09-21 00:00:00 2021-09-21 00:00[facility]00 [facility] 1.2.840.114 350.1.13.10 4.2.7.2.686 [id number] 089 [id number] [facility] 2021-06-01 00:00:00 2021-06-01 00:00:00 [facility] 1.2.840.114 350.1.13.10 4.2.7.2.686 [id number] 089 [id number] [facility] 2021-05-04 00:00:00 2021-05-04 00:00:00 Refill [facility] 1.2.840.114 350.1.13.10 4.2.7.2.686 [id number] 089 [id number] [facility] 2021-04-08 00:00:00 2021-04-08 00:00:00 Refill [facility] 1.2.840.114 350.1.13.10 4.2.7.2.686 [id number] 089 [id number] [facility] 2021-04-07 00:00:00 2021-04-07 00:00:00 [facility] 1.2.840.114 350.1.13.10 4.2.7.2.686 [id number] 089 [id number] [facility] 2021-03-29 00:00:00 2021-03-29 00:00:00 Orders Only Doctor Unassigned, [place] [facility] 1.2.840.114 350.1.13.10 4.2.7.2.686 [id number] 009 [id number] [facility] 2021-03-18 00:00:00 2021-03-18 00:00:00 Transition of Care Melisa De La Torre 1.2.840.114 350.1.13.10 4.2.7.2.686 [id number] [facility] 2021-03-11 09:30:00 2021-03-16 15:35:00 Hospital Encounter Héctor Feliz, Patricia Daniels, Sonny Weldon [facility] 1.2.840.114 350.1.13.10 4.2.7.2.686 [id number] 095 [id number] [facility] 2021-03-12 00:00:00 2021-03-12 00:00:00 [facility] 1.2.840.114 350.1.13.10 4.2.7.2.686 [id number] 089 [id number] [facility] 2021-03-11 00:00:00 2021-03-11 00:00:00 [facility] 1.2.840.114 350.1.13.10 4.2.7.2.686 [id number] 089 [id number] [facility] 2020-10-21 13:00:00 2020-10-21 13:00:00 Outpatient R MOISES FIERRO [facility] [id number] [facility] 2020-09-23 00:00:00 2020-09-23 00:00:00 Refill [facility] 1.840.114 350.1.13.10 4.2.7.2.686 [id number] 089 [id number] [facility] 2020-09-12 11:20:00 2020-09-12 11:20:00 Outpatient R EDY HERRERA [facility] [id number] [facility] 2020-04-25 15:31:06 2020-04-25 15:35:26 Hand Slitter Visit [facility] 1.0.114 350.1.13.10 4.2.7.2.686 [id number] [facility] 2020-04-25 14:39:12 2020-04-25 15:18:29 Office Visit [facility] 1.0.114 350.1.13.10 4.2.7.2.686 [id number] 089 [id number] [facility] 2020-04-25 15:00:00 2020-04-25 15:00:00 Outpatient R MOISES FIERRO [facility] [id number] [facility] 2020-04-25 00:00:00 2020-04-25 00:00:00 Orders Only Doctor Unassigned, [place] [facility] 1.840.114 350.1.13.10 4.2.7.2.686 [id number] 009 [id number] [facility] 2020-04-24 00:00:00 2020-04-24 00:00:00 Refill [facility] 1.840.114 350.1.13.10 4.2.7.2.686 [id number] 089 [id number] [facility] 2020-03-27 00:00:00 2020-03-27 00:00:00 Refill [facility] 1.2840.114 350.1.13.10 4.2.7.2.686 [id number] 089 [id number] [facility] 2020-02-28 11:30:00 2020-02-28 11:30:00 Outpatient R VADIM [facility] [id number] [facility] 2020-02-25 11:00:00 2020-02-25 11:00:00 Outpatient R [facility] [id number] [facility] 2019-12-10 00:00:00 2019-12-10 00:00:00 Refill [facility] 1.2840.114 350.1.13.10 4.2.7.2.686 [id number] 089 [id number] [facility] 2019-09-26 07:38:19 2019-10-31 22:23:05 Telemedici ne [facility] 1.2840.114 350.1.13.10 4.2.7.2.686 [id number] 044 [id number] [facility] 2019-09-26 14:20:00 2019-09-26 14:20:00 Outpatient R LUIZ SHERMAN [facility] [id number] [facility] 2019-08-27 12:14:17 2019-08-27 12:29:17 Hand Slitter Visit [facility] 1.20.114 350.1.13.10 4.2.7.2.686 [id number] [facility] 2019-08-27 10:57:39 2019-08-27 12:12:42 Office Visit [facility] 1.20.114 350.1.13.10 4.2.7.2.686 [id number] [id number] [facility] 2019-08-27 10:30:00 2019-08-27 10:30:00 Outpatient MOISES WALSH [facility] [id number] [facility] 2019-05-14 12:59:00 2019-05-14 23:59:00 Hospital Encounter Edy Herrera Brittney Jo 1.2.840.1 63498.1.1 3.104.2.7 .3.916794 .8 [id number] [facility] 2019-05-08 00:00:00 2019-05-08 00:00:00 Telephone Bhavana Marcus 1.2.840.1 29882.1.1 3.104.2.7 .3.320655 .8 [id number] [facility] 2019-04-27 00:00:00 2019-04-27 00:00:00 Refill Moises Fierro 1.2.840.1 60368.1.1 3.104.2.7 .3.996348 .8 [id number] [facility] 2019-04-20 14:20:00 2019-04-20 23:59:00 Hospital Encounter Edy Herrera 1.2.840.1 34400.1.1 3.104.2.7 .3.907181 .8 [id number] [facility] 2019-04-20 13:59:56 2019-04-20 14:57:04 Office Visit Edy Herrera 1.2.840.1 20894.1.1 3.104.2.7 .3.327481 .8 [id number] [facility] 2019-04-19 00:00:00 2019-04-19 00:00:00 Orders Only Doctor Unassigned, [place] 1.2.840.1 57484.1.1 3.104.2.7 .3.666165 .8 [id number] [facility] 2019-02-21 12:15:00 2019-02-21 23:59:00 Hospital Encounter [facility] 1.2.840.114 350.1.13.10 4.2.7.2.686 [id number] [facility] 2019-02-21 11:49:17 2019-02-21 12:04:17 Hand Slitter Visit [facility] 1.2.840.114 350.1.13.10 4.2.7.2.686 [id number] [facility] 2019-02-21 10:56:56 2019-02-21 11:47:02 Office Visit [facility] 1.2.840.114 350.1.13.10 4.2.7.2.686 [id number] 089 [id number] [facility] 2019-02-16 00:00:00 2019-02-16 00:00:00 Telephone Beni Brown [facility] 1.2.840.114 350.1.13.10 4.2.7.2.686 [id number] 089 [id number] [facility] 2018-12-05 00:00:00 2018-12-05 00:00:00 Orders Only Doctor Unassigned, [place] [facility] 1.2.840.114 350.1.13.10 4.2.7.2.686 [id number] [id number] [facility] 2014-04-15 11:00:00 2014-04-15 11:00:00 Outpatient R ROSA RODRIGUEZ [facility] [id number] [facility] 2013-01-18 00:00:00 2013-01-18 00:00:00 Orders Only Doctor Unassigned, [place] [facility] 1.2.840.114 350.1.13.10 4.2.7.2.686 [id number] 009 [id number] [facility] Results Test Description Test Time Test Comments Results Resul t Comments Source EKG-12 Lead 2023-12-04 1 20:45:16 Ordered by an unspecified provider. [facility] XR CHEST 2 VW 2023-12-03 8 17:05:49 EXAM: XR CHEST 2 VW COMPARISON: 08/27/2022 HISTORY: surgery FINDINGS: Lungs: Stable large lung volumes. No focal opacities. Calcified granulomasbilaterally . No pleural abnormalities. Heart/Mediastinum: The cardiomediastinal silhouette is unremarkable. Mildlyunfolded ascending thoracic aorta. Bones and soft tissues: Several healed fractures along the right sixth andseventh posterolateral ribs, anterior ninth and 10th right ribs,posterolateral eighth left rib. [id number] 17:19:54* Test Item Value Reference Range Interpretation Comme nts TROPONIN I (test code = 4392193780) 0.008 ng/mL <=0.034 JANIA (test code = JANIA) Reference (Normal) Range (defined by the 99th percentile reference limit): <= 0.034 ng/mL Note: Cardiac troponin begins to rise 3-4 hours after the onset of ischemia. Repeat in 4-6 hours if the sample was drawn within 3-4 hours of the onset of the symptom and found normal. Diagnosis of myocardial injury is made with acute changes in cTn concentrations with at least one serial sample above the 99th percentile upper reference limit (URL), taken together with the patient's clinical presentation. Biotin has been reported to cause a negative bias, interpret results relative to patient's use of biotin. Lab Interpretation (test code = 49038-4) [facility]65[facility]-09 17:09:15* Test Item Value Reference Range Interpretation Comme nts NA (test code = 8044615657) 139 mmol/L 135-145 K (test code = 4268899284) 4.5 mmol/L 3.5-5.0 CL (test code = 3617674355) 99 mmol/L 98-108 CO2 TOTAL (test code = 9777189421) 31 mmol/L 23-31 AGAP (test code = 1584695969) 9 2-16 BUN (test code = 8672305472) 11 mg/dL 7-23 GLUCOSE (test code = 3757176410) 103 mg/dL 70-110 CREATININE (test code = 5339258162) 1.29 mg/dL 0.60-1.25 H TOTAL BILI (test code = 3080127070) 0.8 mg/dL 0.1-1.1 CALCIUM (test code = 2065689569) 9.8 mg/dL 8.6-10.6 T PROTEIN (test code = 8954462889) 8.5 g/dL 6.3-8.2 H ALBUMIN (test code = 2348235076) 4.7 g/dL 3.5-5.0 ALK PHOS (test code = 3363156723) 77 U/L 34-122 ALTv (test code = 1742-6) 39 U/L 5-50 AST(SGOT) (test code = 4445478275) 54 U/L 13-40 H eGFR (test code = 2123060037) 57.8 mL/min/1.73m2 JANIA (test code = JANIA) Association of Glomerular Filtration Rate (GFR) and Staging of Kidney Disease* + --+ --+ ------+| GFR (mL/min/1.73 m2) ?| With Kidney Damage ?| ?Without Kidney Damage+ --------+ --------+ +| ?>90 ?| ?Stage one ?| ? Normal ?+ ---+ ---+ -------+| ?60-89 ?| ?Stage two ?| ? Decreased GFR ? + --+ --+ ------+| ?30-59 ?| ?Stage three ?| ? Stage three ? + --+ --+ ------+| ?15-29 ?| ?Stage four ? | ? Stage four ?+ ---+ ---+ -------+| ?<15 (or dialysis) ? ?| ?Stage five ? | ? Stage five ?+ ---+ ---+ -------+ *Each stage assumes the associated GFR level has been in effect for at least three months. ?Stages 1 to 5, with or without kidney disease, indicate chronic kidney disease. Notes: Determination of stages one and two (with eGFR >59mL/min/1.73 m2) requires estimation of kidney damage for at least three months as defined by structural or functional abnormalities of the kidney, manifested by either:Pathological abnormalities or Markers of kidney damage (including abnormalities in the composition of the blood or urine or abnormalities in imaging tests). Lab Interpretation (test code = 51378-7) [id number] Test Item Value Reference Range Interpretation Comme nts CK (test code = 7520916201) 72 U/L 33-194 Lab Interpretation (test cod e = 98467-1) Normal [facility] IMMUNODEFICIENCY VIRUS 1 (HIV-1) BY QUANTITATIVE [id number] 18:18:37* Test Item Value Reference Range Interpretation Comme nts HIV-1 Quantitative Interpretation (test code = 2396680773) Not Detected Not Detected JANIA (test code = JANIA) The Aptima HIV-1 Q uant assay is an FDA-approved nucleic acid amplification test (NAAT) for the quantitation of human immunodeficiency virus type 1 (HIV-1) RNA in human plasma from HIV-1 infected individuals. ?It is intended for use as an aid in monitoring the effects of antiretroviral treatment. ?It is not approved for use as a donor screening test for HIV-1 or as a diagnostic test to confirm the presence of HIV-1 infection. The quantitative range of this assay is 1.47 - 7.00 log copies/mL or 30 - 10,000,000 copies/mL. An interpretation of "Not Detected" does not rule out the presence of inhibitors in the patient specimen or HIV-1 RNA concentration below the level of detection of the test. ?Care should be taken when interpreting any single viral load determination. Detected, not Quantifiable: HIV-1 RNA detected, but at a level below 30 copies/mL (1.47 log copies/mL). ?HIV-1 RNA concentration is below the lower limit of quantitation of the assay. Indeterminate: Error indicated in the generation of the result. ?Please submit a new specimen for repeat testing if clinically indicated. Lab Interpretation (test code = 57418-0) Normal [facility] IMMUNODEFICIENCY VIRUS 1 (HIV-1) BY QUANTITATIVE [id number] 18:18:37* Test Item Value Reference Range Interpretation Comme nts HIV-1 Quantitative Interpretation (test code = 6286968313) Not Detected Not Detected JANIA (test code = JANIA) The Aptima HIV-1 Q uant assay is an FDA-approved nucleic acid amplification test (NAAT) for the quantitation of human immunodeficiency virus type 1 (HIV-1) RNA in human plasma from HIV-1 infected individuals. ?It is intended for use as an aid in monitoring the effects of antiretroviral treatment. ?It is not approved for use as a donor screening test for HIV-1 or as a diagnostic test to confirm the presence of HIV-1 infection. The quantitative range of this assay is 1.47 - 7.00 log copies/mL or 30 - 10,000,000 copies/mL. An interpretation of "Not Detected" does not rule out the presence of inhibitors in the patient specimen or HIV-1 RNA concentration below the level of detection of the test. ?Care should be taken when interpreting any single viral load determination. Detected, not Quantifiable: HIV-1 RNA detected, but at a level below 30 copies/mL (1.47 log copies/mL). ?HIV-1 RNA concentration is below the lower limit of quantitation of the assay. Indeterminate: Error indicated in the generation of the result. ?Please submit a new specimen for repeat testing if clinically indicated. Lab Interpretation (test code = 96765-2) [facility] [id number] 20:04:52* Test Item Value Reference Range Interpretation Comme nts PTH-INTACT (test code = 6419876185) 38.4 pg/mL 12.0-88.0 PTH-CA Interpretation (test code = 9160919755) PTH IS [facility] for Calcium CALCIUM (test code = 6212878837) 10.4 mg/dL 8.6-10.6 [facility], [id number] 23:03:25* Test Item Value Reference Range Interpretation Comme nts VIT B12 (test code = 0794161154) 230 pg/mL 240-930 L JANIA (test code = JANIA) Biotin has been reported to cause a positive bias, interpret results relative to patient's use of biotin. Lab Interpretation (test code = 83567-7) [facility]normal [facility]21714[facility]2023-01-21 20:01:36* Test Item Value Reference Range Interpretation Comme nts NA (test code = 4772644309) 135 mmol/L 135-145 K (test code = 6039859869) 3.4 mmol/L 3.5-5.0 L CL (test code = 4730934811) 92 mmol/L 98-108 L CO2 TOTAL (test code = 0439697177) 32 mmol/L 23-31 H AGAP (test code = 5575752762) 11 2-16 BUN (test code = 7267668022) 15 mg/dL 7-23 GLUCOSE (test code = 7416471023) 152 mg/dL 70-110 H CREATININE (test code = 0769071925) 1.46 mg/dL 0.60-1.25 H TOTAL BILI (test code = 6214323451) 1.0 mg/dL 0.1-1.1 CALCIUM (test code = 0908023735) 10.4 mg/dL 8.6-10.6 T PROTEIN (test code = 3623958401) 8.4 g/dL 6.3-8.2 H ALBUMIN (test code = 2476701072) 4.8 g/dL 3.5-5.0 ALK PHOS (test code = 1188468763) 68 U/L 34-122 ALTv (test code = 1742-6) 31 U/L 5-50 AST(SGOT) (test code = 9900576869) 39 U/L 13-40 eGFR (test code = 8962151238) 50.1 mL/min/1.73m2 JANIA (test code = JANIA) Association of Glomerular Filtration Rate (GFR) and Staging of Kidney Disease* + --+ --+ ------+| GFR (mL/min/1.73 m2) ?| With Kidney Damage ?| ?Without Kidney Damage+ --------+ --------+ +| ?>90 ?| ?Stage one ?| ? Normal ?+ ---+ ---+ -------+| ?60-89 ?| ?Stage two ?| ? Decreased GFR ? + --+ --+ ------+| ?30-59 ?| ?Stage three ?| ? Stage three ? + --+ --+ ------+| ?15-29 ?| ?Stage four ? | ? Stage four ?+ ---+ ---+ -------+| ?<15 (or dialysis) ? ?| ?Stage five ? | ? Stage five ?+ ---+ ---+ -------+ *Each stage assumes the associated GFR level has been in effect for at least three months. ?Stages 1 to 5, with or without kidney disease, indicate chronic kidney disease. Notes: Determination of stages one and two (with eGFR >59mL/min/1.73 m2) requires estimation of kidney damage for at least three months as defined by structural or functional abnormalities of the kidney, manifested by either:Pathological abnormalities or Markers of kidney damage (including abnormalities in the composition of the blood or urine or abnormalities in imaging tests). Lab Interpretation (test code = 61392-7) Abnormal [facility] [id number] 20:01:36* Test Item Value Reference Range Interpretation Comme nts ALBUMIN (test code = 2392584461) 4.8 g/dL 3.5-5.0 CALCIUM (test code = 5151695997) 10.4 mg/dL 8.6-10.6 CO2 TOTAL (test code = 4482460912) 32 mmol/L 23-31 H CREATININE (test code = 7373375135) 1.46 mg/dL 0.60-1.25 H GLUCOSE (test code = 8148398250) 152 mg/dL 70-110 H K (test code = 6649336917) 3.4 mmol/L 3.5-5.0 L NA (test code = 6350054950) 135 mmol/L 135-145 BUN (test code = 0133035972) 15 mg/dL 7-23 PHOSPHORUS (test code = 0460750907) 2.8 mg/dL 2.5-5.0 eGFR (test code = 7983435349) 50.1 mL/min/1.73m2 JANIA (test code = JANIA) Association of Glomerular Filtration Rate (GFR) and Staging of Kidney Disease* + --+ --+ ------+| GFR (mL/min/1.73 m2) ?| With Kidney Damage ?| ?Without Kidney Damage+ --------+ --------+ +| ?>90 ?| ?Stage one ?| ? Normal ?+ ---+ ---+ -------+| ?60-89 ?| ?Stage two ?| ? Decreased GFR ? + --+ --+ ------+| ?30-59 ?| ?Stage three ?| ? Stage three ? + --+ --+ ------+| ?15-29 ?| ?Stage four ? | ? Stage four ?+ ---+ ---+ -------+| ?<15 (or dialysis) ? ?| ?Stage five ? | ? Stage five ?+ ---+ ---+ -------+ *Each stage assumes the associated GFR level has been in effect for at least three months. ?Stages 1 to 5, with or without kidney disease, indicate chronic kidney disease. Notes: Determination of stages one and two (with eGFR >59mL/min/1.73 m2) requires estimation of kidney damage for at least three months as defined by structural or functional abnormalities of the kidney, manifested by either:Pathological abnormalities or Markers of kidney damage (including abnormalities in the composition of the blood or urine or abnormalities in imaging tests). Lab Interpretation (test code = 30396-2) Abnormal [facility] [id number] 16:01:05* Test Item Value Reference Range Interpretation Comme nts TROPONIN I (test code = 7350708979) 0.024 ng/mL <=0.034 JANIA (test code = JANIA) Reference (Normal) Range (defined by the 99th percentile reference limit): <= 0.034 ng/mL Note: Cardiac troponin begins to rise 3-4 hours after the onset of ischemia. Repeat in 4-6 hours if the sample was drawn within 3-4 hours of the onset of the symptom and found normal. Diagnosis of myocardial injury is made with acute changes in cTn concentrations with at least one serial sample above the 99th percentile upper reference limit (URL), taken together with the patient's clinical presentation. Biotin has been reported to cause a negative bias, interpret results relative to patient's use of biotin. Lab Interpretation (test code = 28294-8) Normal [facility] [id number] 16:01:05* Test Item Value Reference Range Interpretation Comme nts TROPONIN I (test code = 2544209893) 0.024 ng/mL <=0.034 JANIA (test code = JANIA) Reference (Normal) Range (defined by the 99th percentile reference limit): <= 0.034 ng/mL Note: Cardiac troponin begins to rise 3-4 hours after the onset of ischemia. Repeat in 4-6 hours if the sample was drawn within 3-4 hours of the onset of the symptom and found normal. Diagnosis of myocardial injury is made with acute changes in cTn concentrations with at least one serial sample above the 99th percentile upper reference limit (URL), taken together with the patient's clinical presentation. Biotin has been reported to cause a negative bias, interpret results relative to patient's use of biotin. Lab Interpretation (test code = 18156-6) Normal [facility] METABOLIC PANEL (NA, K, CL, CO2, GLUCOSE, BUN, CREATININE, CA)2022-10-18 15:53:06* Test Item Value Reference Range Interpretation Comme nts NA (test code = 8045838537) 138 mmol/L 135-145 K (test code = 8920028721) 3.8 mmol/L 3.5-5.0 CL (test code = 7668073991) 95 mmol/L 98-108 L CO2 TOTAL (test code = 5900645372) 27 mmol/L 23-31 AGAP (test code = 5273406538) 16 2-16 BUN (test code = 6732283682) 9 mg/dL 7-23 GLUCOSE (test code = 4269099758) 84 mg/dL 70-110 CREATININE (test code = 7244442730) 1.14 mg/dL 0.60-1.25 CALCIUM (test code = 1854285236) 9.7 mg/dL 8.6-10.6 eGFR (test code = 6499685076) 66.9 mL/min/1.73m2 JANIA (test code = JANIA) Association of Glomerular Filtration Rate (GFR) and Staging of Kidney Disease* + --+ --+ ------+| GFR (mL/min/1.73 m2) ?| With Kidney Damage ?| ?Without Kidney Damage+ --------+ --------+ +| ?>90 ?| ?Stage one ?| ? Normal ?+ ---+ ---+ -------+| ?60-89 ?| ?Stage two ?| ? Decreased GFR ? + --+ --+ ------+| ?30-59 ?| ?Stage three ?| ? Stage three ? + --+ --+ ------+| ?15-29 ?| ?Stage four ? | ? Stage four ?+ ---+ ---+ -------+| ?<15 (or dialysis) ? ?| ?Stage five ? | ? Stage five ?+ ---+ ---+ -------+ *Each stage assumes the associated GFR level has been in effect for at least three months. ?Stages 1 to 5, with or without kidney disease, indicate chronic kidney disease. Notes: Determination of stages one and two (with eGFR >59mL/min/1.73 m2) requires estimation of kidney damage for at least three months as defined by structural or functional abnormalities of the kidney, manifested by either:Pathological abnormalities or Markers of kidney damage (including abnormalities in the composition of the blood or urine or abnormalities in imaging tests). Lab Interpretation (test code = 69167-2) Abnormal [facility] METABOLIC PANEL (NA, K, CL, CO2, GLUCOSE, BUN, CREATININE, CA)2022-10-18 15:53:06* Test Item Value Reference Range Interpretation Comme nts NA (test code = 8045322101) 138 mmol/L 135-145 K (test code = 5165576580) 3.8 mmol/L 3.5-5.0 CL (test code = 0162673330) 95 mmol/L 98-108 L CO2 TOTAL (test code = 1025994328) 27 mmol/L 23-31 AGAP (test code = 9596102700) 16 2-16 BUN (test code = 1545730543) 9 mg/dL 7-23 GLUCOSE (test code = 8320459839) 84 mg/dL 70-110 CREATININE (test code = 5865005636) 1.14 mg/dL 0.60-1.25 CALCIUM (test code = 2026886896) 9.7 mg/dL 8.6-10.6 eGFR (test code = 2976539852) 66.9 mL/min/1.73m2 JANIA (test code = JANIA) Association of Glomerular Filtration Rate (GFR) and Staging of Kidney Disease* + --+ --+ ------+| GFR (mL/min/1.73 m2) ?| With Kidney Damage ?| ?Without Kidney Damage+ --------+ --------+ +| ?>90 ?| ?Stage one ?| ? Normal ?+ ---+ ---+ -------+| ?60-89 ?| ?Stage two ?| ? Decreased GFR ? + --+ --+ ------+| ?30-59 ?| ?Stage three ?| ? Stage three ? + --+ --+ ------+| ?15-29 ?| ?Stage four ? | ? Stage four ?+ ---+ ---+ -------+| ?<15 (or dialysis) ? ?| ?Stage five ? | ? Stage five ?+ ---+ ---+ -------+ *Each stage assumes the associated GFR level has been in effect for at least three months. ?Stages 1 to 5, with or without kidney disease, indicate chronic kidney disease. Notes: Determination of stages one and two (with eGFR >59mL/min/1.73 m2) requires estimation of kidney damage for at least three months as defined by structural or functional abnormalities of the kidney, manifested by either:Pathological abnormalities or Markers of kidney damage (including abnormalities in the composition of the blood or urine or abnormalities in imaging tests). Lab Interpretation (test code = 62921-3) Abnormal [facility] WITH [id number] 15:32:40* Test Item Value Reference Range Interpretation Comme nts WBC (test code = 6690-2) 4.22 See_Comment [Automated DNAtriX] The system which generated this result transmitted reference range: 4.20 - 10.70 10*3/?L. The reference range was not used to interpret this result as normal/abnormal. RBC (test code = 789-8) 4.73 See_Comment [Automated DNAtriX] The system which generated this result transmitted reference range: 4.26 - 5.52 10*6/?L. The reference range was not used to interpret this result as normal/abnormal. HGB (test code = 718-7) 16.1 g/dL 12.2-16.4 HCT (test code = 4544-3) 44.6 % 38.4-49.3 MCV (test code = 787-2) 94.3 fL 81.7-95.6 MCH (test code = 785-6) 34.0 pg 26.1-32.7 H MCHC (test code = 786-4) 36.1 g/dL 31.2-35.0 H RDW-SD (test code = 76797-0) 42.2 fL 38.5-51.6 RDW-CV (test code = 788-0) 12.0 % 12.1-15.4 L PLT (test code = 777-3) 269 See_Comment [Automated messa ge] The system which generated this result transmitted reference range: 150 - 328 10*3/?L. The reference range was not used to interpret this result as normal/abnormal. MPV (test code = 34210-0) 8.6 fL 9.8-13.0 L NRBC/100 WBC (test code = 1693949263) 0.0 See_Comment [Automated Nanapi ssage] The system which generated this result transmitted reference range: 0.0 - 10.0 /100 WBCs. The reference range was not used to interpret this result as normal/abnormal. NRBC x10^3 (test code = 0289963739) See_Comment [Automated Evikon MCIa ge] The system which generated this result transmitted reference range: 10*3/?L. The reference range was not used to interpret this result as normal/abnormal. GRAN MAT (NEUT) % (test code = 770-8) 57.3 % IMM GRAN % (test code = 9113419433) 0.20 % LYMPH % (test code = 736-9) 32.5 % MONO % (test code = 5905-5) 7.1 % EOS % (test code = 713-8) 1.7 % BASO % (test code = 706-2) 1.2 % GRAN MAT x10^3(ANC) (test code = 6110429287) 2.42 10*3/uL 1.99-6.95 IMM GRAN x10^3 (test code = 2167314938) 0.00-0.06 LYMPH x10^3 (test code = 731-0) 1.37 10*3/uL 1.09-3.23 MONO x10^3 (test code = 742-7) 0.30 10*3/uL 0.36-1.02 L EOS x10^3 (test code = 711-2) 0.07 10*3/uL 0.06-0.53 BASO x10^3 (test code = 704-7) 0.05 10*3/uL 0.01-0.09 Lab Interpretation (test code = 49811-3) Abnormal [facility] WITH [id number] 15:32:40* Test Item Value Reference Range Interpretation Comme nts WBC (test code = 6690-2) 4.22 See_Comment [Automated messa ge] The system which generated this result transmitted reference range: 4.20 - 10.70 10*3/?L. The reference range was not used to interpret this result as normal/abnormal. RBC (test code = 789-8) 4.73 See_Comment [Automated messa ge] The system which generated this result transmitted reference range: 4.26 - 5.52 10*6/?L. The reference range was not used to interpret this result as normal/abnormal. HGB (test code = 718-7) 16.1 g/dL 12.2-16.4 HCT (test code = 4544-3) 44.6 % 38.4-49.3 MCV (test code = 787-2) 94.3 fL 81.7-95.6 MCH (test code = 785-6) 34.0 pg 26.1-32.7 H MCHC (test code = 786-4) 36.1 g/dL 31.2-35.0 H RDW-SD (test code = 54214-0) 42.2 fL 38.5-51.6 RDW-CV (test code = 788-0) 12.0 % 12.1-15.4 L PLT (test code = 777-3) 269 See_Comment [Automated messa ge] The system which generated this result transmitted reference range: 150 - 328 10*3/?L. The reference range was not used to interpret this result as normal/abnormal. MPV (test code = 96090-7) 8.6 fL 9.8-13.0 L NRBC/100 WBC (test code = 6346139086) 0.0 See_Comment [Automated Nanapi ssage] The system which generated this result transmitted reference range: 0.0 - 10.0 /100 WBCs. The reference range was not used to interpret this result as normal/abnormal. NRBC x10^3 (test code = 1234535632) See_Comment [Automated messa ge] The system which generated this result transmitted reference range: 10*3/?L. The reference range was not used to interpret this result as normal/abnormal. GRAN MAT (NEUT) % (test code = 770-8) 57.3 % IMM GRAN % (test code = 4505516146) 0.20 % LYMPH % (test code = 736-9) 32.5 % MONO % (test code = 5905-5) 7.1 % EOS % (test code = 713-8) 1.7 % BASO % (test code = 706-2) 1.2 % GRAN MAT x10^3(ANC) (test code = 2186009662) 2.42 10*3/uL 1.99-6.95 IMM GRAN x10^3 (test code = 5557153532) 0.00-0.06 LYMPH x10^3 (test code = 731-0) 1.37 10*3/uL 1.09-3.23 MONO x10^3 (test code = 742-7) 0.30 10*3/uL 0.36-1.02 L EOS x10^3 (test code = 711-2) 0.07 10*3/uL 0.06-0.53 BASO x10^3 (test code = 704-7) 0.05 10*3/uL 0.01-0.09 Lab Interpretation (test code = 18679-9) [facility]57* Test Item Value Reference Range Interpretation Comme nts APPEARANCE (test code = 5636461254) Clear Clear COLOR (test code = 9797383647) Yellow Yellow PH (test code = 2321262907) 6.0 4.8-8.0 SP GRAVITY (test code = 8708713171) 1.014 1.003-1.030 GLU U QUAL (test code = 5939175486) Normal Normal BLOOD (test code = 4994425816) 1+ Negative A KETONES (test code = 7420022725) Negative Negative PROTEIN (test code = 2887-8) 30 mg/dL Negative A UROBILIN (test code = 0407291594) Normal Normal BILIRUBIN (test code = 0422891314) Negative Negative NITRITE (test code = 8509044696) Negative Negative LEUK ASHLEY (test code = 9431711283) Negative Negative RBC/HPF (test code = 9014997723) 1 See_Comment [Automated messa ge] The system which generated this result transmitted reference range: 0 - 3 HPF. The reference range was not used to interpret this result as normal/abnormal. WBC/HPF (test code = 8585736602) See_Comment [Automated messa ge] The system which generated this result transmitted reference range: 0 - 5 HPF. The reference range was not used to interpret this result as normal/abnormal. BACTERIA (test code = 6963091698) Few Negative A SQ EPITH (test code = 3263784389) 1 HPF TRANS EPI (test code = 1986733126) See_Comment [Automated messa ge] The system which generated this result transmitted reference range: <=1 HPF. The reference range was not used to interpret this result as normal/abnormal. Lab Interpretation (test code = 60077-7) Abnormal [facility] and Screen -2022-08-27 17:26:24* Test Item Value Reference Range Interpretation Comme nts ABO & RH (test code = 20) O Positive Performed at [facility] Blood [address] Free: [phone] No. [id number] IAT (test code = 1185) Negative Performed at [place] [address]Toll Free: [phone] No. [id number] [facility] -2022-08-27 17:26:24* Test Item Value Reference Range Interpretation Comme nts ABO & RH (test code = 20) O Positive Performed at [facility] Blood [address] Free: [phone] No. [id number] IAT (test code = 1185) Negative Performed at [place] [address]Toll Free: [phone] No. [id number] [facility] Notes Date/Time Note Provider Source 2024-11-05 16:52:09 Images from the original note were not included. Notes: Name from pharmacy: METOPROLOL SUCCINATE 25MG TAB ER Will file in chart as: METOPROLOL SUCCINATE XL 25 mg 24 hr tablet Sig: TAKE ONE TABLET BY MOUTH EVERY MORNING AND IN THE EVENING Disp: 60 tablet Refills: 0 (Pharmacy requested: Not specified) Start: 11/05/2024 Class: eRX For: Asymptomatic hypertensive urgency, Essential hypertension Last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
[2025-03-24 17:45] LABS: Absolute Lymphocytes (CBC) 1.0 K/uL (0.7-4.9); Hematocrit 40.0 % (39.6-49.0); Hemoglobin 13.6 g/dL (13.6-17.9); MCH 34.6 pg (27.0-35.0); MCHC 34.0 g/dL (32.0-36.0); MCV 101.6 fL (80-100); MPV 6.7 fL (7.6-11.3); Nucleated RBC Absolute Count 0.0 (0-0); Nucleated Red Blood Cells % 0.1 % (0-0); RBC Red Blood Cell Count 3.94 M/uL (4.33-5.43); White Blood Count 4.40 thou/uL (4.3-10.9)
[2025-03-24 17:54] LABS: Anion Gap 11.1 mEq/L (5.0-15.0); BUN Blood Urea Nitrogen 8.0 mg/dL (7-18); Glucose Level 80.0 mg/dL (74-106); Potassium 4.1 mEq/L (3.5-5.1)
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
== END 2025-03-24 18:39 | disposition home or self-care (01) ==
LOC: ER 16:55
DX: S11.93XA Puncture wound without foreign body of unspecified part of neck, initial encounter (principal); W26.8XXA Contact with other sharp object(s), not elsewhere classified, initial encounter; Y93.9 Activity, unspecified; Y92.9 Unspecified place or not applicable
CPT/HCPCS: 85025; 80048; 36415; 82565; 70498; 96375; 96374; 99284; Q9967; J1200; J2919